=== PATIENT | male | born 1955 | race Caucasian/White ===

== ENCOUNTER 2016-11-18 04:40 | Inpatient (IN) | payer MEDICARE, OTHER ==
[2016-11-18 04:42] VITALS: BMI 22.8
--- NOTE | 2016-11-18 04:54 | ED PDOC ---
Arrival/HPI - General Chief Complaint: Medical Clearance Time Seen by Provider: 11/18/16 04:45 Historian: Patient - Critical Care Critical Care Minutes: 45 minutes - History of Present Illness Narrative History of Present Illness (Text): 11/18/16 04:48 Pipe Betancur is a 61 year old male, with a history of multiple myeloma, and ESRD on dialysis, presents to the emergency department via ambulance for altered mental states. According to , patient woke up from sleep yelling and altered. When the paramedics arrived, he was hypotensive and bradycardic with a heart rate of 24 bpm. Patient was given 1mg Atropine with minimal effect. Patient was then sedated with 70 mg of Ketamine placed on transcutaneous pacing as 3rd degree block was noted.. According to family, patient is due for dialysis later today. History and ROS limited due to patient's condition. Time/Duration: 1/2 hour Symptom Onset: Sudden Symptom Course: Unchanged Severity Level: Severe Activities at Onset: Sleeping Context: Home Past Medical History - Provider Review Nursing Documentation Reviewed: Yes - Tetanus Immunization Tetanus Immunization: Unknown - Renal Hx Renal Disorder: Yes Date of Last Dialysis Treatment: 07/24/15 Hx Renal Failure: Yes Other/Comment: NEW AV SHUNT LEFT ARM - Hematological/Oncological Hx Blood Disorders: Yes (THROMBOCYTOPENIA) Hx Blood Transfusions: Yes Hx Blood Transfusion Reaction: No Hx Cancer: Yes (MULTIPLE MYELOMA) Hx Chemotherapy: Yes Hx Shingles: Yes - Musculoskeletal/Rheumatological Hx Musculoskeletal Disorders: Yes Hx Osteoporosis: Yes - Gastrointestinal Hx Gastrointestinal Disorders: Yes Hx Gall Bladder Disease: Yes - Surgical History Hx Arteriovenous Shunt: Yes (FISTULA LEFT ARM) Hx Cholecystectomy: Yes Hx Vascular Surgery: Yes (PERMA CATH INSERTION ) Hx Vascular Access Device: Yes (LOLI CATH RIGHT CHEST) Other/Comment: 03/01/16- DRAINAGE HEMATOMA LEFT ARM - Anesthesia Hx Anesthesia: Yes Hx Anesthesia Reactions: No Hx Malignant Hyperthermia: No - Suicidal Assessment Feels Threatened In Home Enviroment: No Family/Social History - Physician Review Nursing Documentation Reviewed: Yes Family/Social History: No Known Family HX Smoking Status: Never Smoked Hx Alcohol Use: No Allergies/Home Meds Allergies/Adverse Reactions: Allergies No Known Allergies Allergy (Verified 03/01/15 10:53) Home Medications: Home Meds Medication Instructions Recorded Confirmed Sevelamer HCl [Renagel] 800 mg PO TID 07/23/15 11/18/16 B Complex W-C No.20/Folic Acid 1 tab PO DAILY 11/18/16 11/18/16 [Renal Caps Softgel] Calcium Acetate [Phoslo] 3 cap PO TID 11/18/16 11/18/16 Famotidine [Heartburn Prevention] 10 mg PO DAILY 11/18/16 11/18/16 Ferric Citrate [Auryxia] 420 mg PO TID 11/18/16 11/18/16 Review of Systems - Review of Systems Systems not reviewed;Unavailable: Other (Lethargic/unresponsive) Physical Exam Vital Signs Reviewed: Yes Vital Signs Temp Pulse Pulse Resp BP BP Pulse Ox 11/18/16 05:18 71 152/47 H 11/18/16 05:12 69 129/49 L 11/18/16 05:11 71 22 129/49 L 99 11/18/16 04:48 99.7 F H 72 24 138/28 L Temperature: Afebrile Blood Pressure: Hypotensive Respiratory Rate: Normal Appearance: Positive for: Non-Toxic Pain Distress: None Mental Status: Positive for: other (Awake, in a dissociative state (s/p ketamine ) ) - Systems Exam Head: Present: Atraumatic, Normocephalic Pupils: Present: PERRL Conjunctiva: Present: Normal Respiratory/Chest: Present: Clear to Auscultation, Good Air Exchange. No: Respiratory Distress, Accessory Muscle Use Cardiovascular: Present: Normal S1, S2, Bradycardic. No: Murmurs Upper Extremity: Present: Normal Inspection. No: Cyanosis, Edema Lower Extremity: Present: Normal Inspection. No: Edema Skin: Present: Warm, Dry, Normal Color. No: Rashes Psychiatric: Present: Other (Awake, in a dissociative state (s/p ketamine) ) Medical Decision Making ED Course and Treatment: 11/18/16 04:57 Impression: A 61 year old male who presents to the emergency department via ambulance for altered mental status, hypotensive, and bradycardia. Plan: -- Labs, cardiac enzymes -- EKG -- Chest X-ray -- Albuterol -- Calcium Gluconate -- Dextrose -- Doubtamine -- Insulin -- Sodium Polystyrene Sulfonate -- Sodium Bicarbonate -- Reassess and disposition Progress Notes: 11/18/16 05:09 Case discussed with , who is aware and accepts patient to the ICU. Accepts patient under Danika's service. Case discussed with Dr. Garnica who accepts patient under her service with , cardiology consult, Dr. Adrian, renal consult and , infectious disease consult. 11/18/16 05:28 Patient with a temperature of 99.7F and Lactate of 6.1. Code Sepsis called. 11/18/16 06:00 Pt. 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 - Lab Interpretations Lab Results: 11/18/16 04:50 11/18/16 04:50 Lab Results 11/18/16 04:50: pO2 35, VBG pH 7.08 L*, VBG pCO2 80.0 H*, VBG HCO3 23.7, VBG Total CO2 26.2, VBG O2 Sat (Calc) 45.7, VBG Base Excess -7.8 L, VBG Potassium 7.0 H*, Sodium 131.0 L, Chloride 96.0 L, Glucose 180 H, Lactate 6.1 H*, FiO2 21.0, Venous Blood Potassium 7.0 H* 11/18/16 04:50: WBC 6.8 D, RBC 3.74, Hgb 12.7 L, Hct 38.5 L, MCV 102.9, MCH 34.0, MCHC 33.0, RDW 14.2, Plt Count 152, MPV 11.0 11/18/16 04:50: Sodium 135, Chloride 94 L, Potassium 6.7 H* D, Carbon Dioxide 20 L, Anion Gap 28 H, BUN 75 H, Creatinine 10.6 H*, Est GFR ( Amer) 6, Est GFR (Non-Af Amer) 5, Random Glucose 166 H, Calcium 8.6, Phosphorus 8.3 H, Magnesium 2.6 H, Total Bilirubin 0.7, AST 19, ALT 24, Alkaline Phosphatase 47, Lactate Dehydrogenase 403, Total Creatine Kinase 54, Troponin I 0.04, Total Protein 7.2, Albumin 4.2, Globulin 3.0, Albumin/Globulin Ratio 1.4 11/18/16 04:50: PT 11.1, INR 1.03, APTT 22.8 L I have reviewed the lab results: Yes - RAD Interpretation Radiology Orders: 11/18/16 04:47 CHEST PORTABLE [RAD] Stat - EKG Interpretation EKG Interpretation (Text): EKG- Complete heart block Interpreted by ED Physician: Yes Type: 12 lead EKG - Medication Orders Current Medication Orders: Dobutamine HCl/Dextrose (Dobutamine/Dextrose 5% 500mg/250ml) 500 mg in 250 mls @ 5.1 mls/hr IV .Q24H PRN; Protocol; 2.5 MCG/KG/MIN PRN Reason: TITRATE PER PROTOCOL Last Admin: 11/18/16 05:12 Dose: 5.1 mls/hr Vancomycin HCl (Vancomycin 1gm) 1 gm in 250 mls @ 167 mls/hr IVPB STAT STA PRN Reason: Protocol Stop: 11/18/16 07:23 Last Admin: 11/18/16 06:16 Dose: 167 mls/hr Sodium Chloride (Sodium Chloride 0.9%) 450 mls @ 500 mls/hr IV .Q54M STA Stop: 11/18/16 07:21 Last Admin: 11/18/16 06:55 Dose: 500 mls/hr Discontinued Medications Albuterol Sulfate (Albuterol 0.083% Inhal Pilar (2.5 Mg/3 Ml) Ud) 15 mg IH STAT STA Stop: 11/18/16 05:24 Last Admin: 11/18/16 05:47 Dose: 15 mg Calcium Gluconate (Calcium Gluconate Iv) 1,000 mg IVP ONCE ONE Stop: 11/18/16 05:20 Last Admin: 11/18/16 05:43 Dose: 1,000 mg Dextrose (Dextrose 50% Inj) 50 ml IVP ONCE ONE Stop: 11/18/16 05:23 Last Admin: 11/18/16 05:51 Dose: 50 ml Meropenem 1g/NS 100mL IVPB (Meropenem 1g/Ns 100ml Ivpb) 1 gm in 100 mls @ 100 mls/hr IVPB STAT STA PRN Reason: Protocol Stop: 11/18/16 06:39 Insulin Human Regular (Humulin R) 10 units IVP STAT STA Stop: 11/18/16 05:23 Last Admin: 11/18/16 05:51 Dose: 10 units Sodium Bicarbonate (Sodium Bicarbonate (8.4%) 50 Meq Syringe) 50 meq IVP ONCE ONE Stop: 11/18/16 05:23 Last Admin: 11/18/16 05:42 Dose: 50 meq Sodium Polystyrene Sulfonate (Kayexalate Oral Susp) 30 gm PO ONCE ONE Stop: 11/18/16 05:23 Last Admin: 11/18/16 06:55 Dose: 30 gm Sodium Polystyrene Sulfonate (Kayexalate Oral Susp) 15 gm SC STAT STA Stop: 11/18/16 06:03 Last Admin: 11/18/16 06:45 Dose: 15 gm - Scribe Statement The provider has reviewed the documentation as recorded by the Deandra Coy Provider Attestation: All medical record entries made by the Deandra were at my direction and personally dictated by me. I have reviewed the chart and agree that the record accurately reflects my personal performance of the history, physical exam, medical decision making, and the department course for this patient. I have also personally directed, reviewed, and agree with the discharge instructions and disposition. Disposition/Present on Arrival - Present on Arrival Any Indicators Present on Arrival: No History of DVT/PE: No History of Uncontrolled Diabetes: No Urinary Catheter: No History of Decub. Ulcer: No History Surgical Site Infection Following: None - Disposition Have Diagnosis and Disposition been Completed?: Yes Diagnosis: Hyperkalemia, Complete heart block Disposition: HOSPITALIZED Disposition Time: 05:45 Patient Plan: ICU Patient Problems: Current Active Problems Problem Status Onset Complete heart block Acute Hyperkalemia Acute Condition: STABLE
[2016-11-18 05:03] LABS: VENOUS BLOOD GAS BASE EXCESS -7.8 mmol/L (0.0-2.0)
[2016-11-18 05:05] LABS: HEMATOCRIT 38.5 % (42.0-52.0); MEAN CELL VOLUME 102.9 fL (80.0-105.0); RED CELL DISTRIBUTION WIDTH 14.2 % (11.5-14.5); WHITE BLOOD COUNT 6.8 10^3/ul (4.5-11.0)
[2016-11-18] MEDS ORDERED: DOBUTamine 500mg/250ml D5W 500 MG/250 ML BAG IV PRN (05:06)
[2016-11-18 05:14] LABS: VENOUS BLOOD PH 7.08 (7.32-7.43)
[2016-11-18 05:18] LABS: ALB/GLOB RATIO 1.4 (1.1-1.8); BILIRUBIN,TOTAL 0.7 mg/dL (0.2-1.3); CALCIUM 8.6 mg/dL (8.4-10.5); TOTAL PROTEIN 7.2 g/dL (5.8-8.3)
[2016-11-18 05:19] LABS: INR 1.03 (0.93-1.08); PARTIAL THROMBOPLASTIN TIME 22.8 Seconds (23.7-30.8)
[2016-11-18] MEDS ORDERED: Dextrose 50% SYRINGE Inj (50 ml) IVP ONE (05:22)
[2016-11-18] MEDS ORDERED: Insulin Regular 1 UNITS/0.01 ML ML IVP STA (05:22)
[2016-11-18] MEDS ORDERED: Sodium Bicarbonate (8.4%) 50 Meq Syringe IVP ONE (05:22)
[2016-11-18] MEDS ORDERED: Albuterol 0.083% Inhal Sol (2.5 mg/3 mL) UD IH STA (05:23)
[2016-11-18 05:26] LABS: POTASSIUM 6.7 mmol/L (3.6-5.0); TROPONIN I 0.04 ng/mL
[2016-11-18] MEDS ORDERED: Meropenem 1g/NS 100mL IVPB 1 GM/100 ML PIGGYBACK IVPB STA (05:40)
[2016-11-18] MEDS ORDERED: Vancomycin 1gm in NS 250ml 1 GM/250 ML BAG IVPB STA (05:54)
[2016-11-18] MEDS: Sod Polystyrene Sulf 15 gm/60 ml Oral Susp PO ONE ×2 (05:57→06:55)
[2016-11-18 06:01] LABS: MAGNESIUM 2.6 mg/dL (1.7-2.2); PHOSPHOROUS 8.3 mg/dL (2.5-4.5)
[2016-11-18] MEDS ORDERED: Sod Polystyrene Sulf 15 gm/60 ml Oral Susp PR STA (06:02)
--- NOTE | 2016-11-18 06:18 | CP.PCM.CON ---
<DozierBrenton - Last Filed: 11/18/16 07:27> History of Present Illness - History of Present Illness History of Present Illness: Resident ICU Consult Note for Dr. Galvan 61 year old male with past medial history of multiple myeloma and ESRD ( dialysis , Thu, ) was brought to [facility] ED via EMS for sudden altered mental status. History per patient's son, patient suddenly woke up from sleep at 4am in the morning shouting, confused, and lose consciousness intermittently. Patient was found to be hypotensive and bradycardiac at 24bpm, atropine was given en route to [facility]. Patient was also found to have 3rd degree heart block. Ketamine and transcutaneous pacing were started. Patient's last dialysis was 2 days ago on Thursday. Patient was diagnosed with myeloma 8 years ago, sees Dr. Geovany Duarte as outpatient. Unable to obtain further history and ROS due to patient' s mental status. PMD: Dr. Garnica, Nephro: D Adrian PMHx: multiple myeloma, ESRD PSHx: AVF left arm Allergy: NKDA Social Hx: denies tobacco, alcohol or other drug use Family Hx: non contributory Home meds: famotidine, B complex/folic acid, renagel, phoslo, ferric citrate Review of Systems - Review of Systems Systems not reviewed;Unavailable: Altered Mental Status Review of Systems: sedated - Constitutional Constitutional: As Per HPI - EENT Eyes: As Per HPI Ears: As Per HPI Nose/Mouth/Throat: As Per HPI - Cardiovascular Cardiovascular: As Per HPI - Respiratory Respiratory: As Per HPI - Gastrointestinal Gastrointestinal: As Per HPI - Genitourinary Genitourinary: As Per HPI - Musculoskeletal Musculoskeletal: As Per HPI - Integumentary Integumentary: As Per HPI - Neurological Neurological: As Per HPI - Psychiatric Psychiatric: As Per HPI - Endocrine Endocrine: As Per HPI - Hematologic/Lymphatic Hematologic: As Per HPI Past Patient History - Tetanus Immunizations Tetanus Immunization: Unknown - Past Medical History & Family History Past Medical History?: Yes - Past Social History Smoking Status: Never Smoked - RENAL Hx Chronic Kidney Disease: Yes Date of Last Dialysis Treatment: 07/24/15 Hx Renal Failure: Yes Other/Comment: NEW AV SHUNT LEFT ARM - HEMATOLOGICAL/ONCOLOGICAL Hx Blood Disorders: Yes (THROMBOCYTOPENIA) Hx Blood Transfusions: Yes Hx Blood Transfusion Reaction: No Hx Cancer: Yes (MULTIPLE MYELOMA) Hx Chemotherapy: Yes Hx Shingles: Yes - MUSCULOSKELETAL/RHEUMATOLOGICAL Hx Musculoskeletal Disorders: Yes Hx Osteoporosis: Yes - GASTROINTESTINAL Hx Gastrointestinal Disorders: Yes Hx Gall Bladder Disease: Yes - SURGICAL HISTORY Hx Arteriovenous Shunt: Yes (FISTULA LEFT ARM) Hx Cholecystectomy: Yes Hx Vascular Surgery: Yes (PERMA CATH INSERTION ) Hx Vascular Access Device: Yes (LOLI CATH RIGHT CHEST) Other/Comment: 03/01/16- DRAINAGE HEMATOMA LEFT ARM - ANESTHESIA Hx Anesthesia: Yes Hx Anesthesia Reactions: No Hx Malignant Hyperthermia: No Meds Allergies/Adverse Reactions: Allergies Allergy/AdvReac Type Severity Reaction Status Date / Time No Known Allergies Allergy Verified 03/01/15 10:53 - Medications Medications: Current Medications Dobutamine HCl/Dextrose (Dobutamine/Dextrose 5% 500mg/250ml) 500 mg in 250 mls @ 5.1 mls/hr IV .Q24H PRN; Protocol; 2.5 MCG/KG/MIN PRN Reason: TITRATE PER PROTOCOL Last Admin: 11/18/16 05:12 Dose: 5.1 mls/hr Meropenem 1g/NS 100mL IVPB (Meropenem 1g/Ns 100ml Ivpb) 1 gm in 100 mls @ 100 mls/hr IVPB STAT STA PRN Reason: Protocol Stop: 11/18/16 06:39 Vancomycin HCl (Vancomycin 1gm) 1 gm in 250 mls @ 167 mls/hr IVPB STAT STA PRN Reason: Protocol Stop: 11/18/16 07:23 Physical Exam - Constitutional Appears: Toxic - Head Exam Head Exam: ATRAUMATIC, NORMOCEPHALIC - Eye Exam Eye Exam: EOMI, Normal appearance, PERRL - ENT Exam ENT Exam: Mucous Membranes Moist - Neck Exam Neck exam: Positive for: Normal Inspection - Respiratory Exam Respiratory Exam: Clear to Auscultation Bilateral, NORMAL BREATHING PATTERN. absent: Rhonchi, Wheezes, Respiratory Distress - Cardiovascular Exam Cardiovascular Exam: Bradycardia, +S1, +S2. absent: Diastolic murmur, Systolic Murmur Additional comments: loli cath at right chest - GI/Abdominal Exam GI & Abdominal Exam: Normal Bowel Sounds, Soft. absent: Rigid, Tenderness - Extremities Exam Extremities exam: Positive for: normal capillary refill, pedal pulses present. Negative for: joint swelling, pedal edema Additional comments: Righ arm vistula with good thrill - Neurological Exam Additional comments: sedated - Psychiatric Exam Additional comments: sedated - Skin Skin Exam: Dry, Intact, Normal Color, Warm Results - Vital Signs Recent Vital Signs: Last Vital Signs Temp 99.7 F H 11/18/16 04:48 Pulse 71 11/18/16 05:18 Resp 22 11/18/16 05:11 BP 152/47 H 11/18/16 05:18 Pulse Ox 99 11/18/16 05:11 - Labs Result Diagrams: 11/18/16 04:50 11/18/16 04:50 Labs: Laboratory Results - last 24 hr 11/18/16 11/18/16 11/18/16 04:50 04:50 04:50 WBC 6.8 D RBC 3.74 Hgb 12.7 L Hct 38.5 L MCV 102.9 MCH 34.0 MCHC 33.0 RDW 14.2 Plt Count 152 MPV 11.0 PT 11.1 INR 1.03 APTT 22.8 L pO2 VBG pH VBG pCO2 VBG HCO3 VBG Total CO2 VBG O2 Sat (Calc) VBG Base Excess VBG Potassium Sodium 135 Chloride 94 L Glucose Lactate FiO2 Potassium 6.7 H* D Carbon Dioxide 20 L Anion Gap 28 H BUN 75 H Creatinine 10.6 H* Est GFR ( Amer) 6 Est GFR (Non-Af Amer) 5 Random Glucose 166 H Calcium 8.6 Phosphorus 8.3 H Magnesium 2.6 H Total Bilirubin 0.7 AST 19 ALT 24 Alkaline Phosphatase 47 Lactate Dehydrogenase 403 Total Creatine Kinase 54 Troponin I 0.04 Total Protein 7.2 Albumin 4.2 Globulin 3.0 Albumin/Globulin Ratio 1.4 Venous Blood Potassium 11/18/16 04:50 WBC RBC Hgb Hct MCV MCH MCHC RDW Plt Count MPV PT INR APTT pO2 35 VBG pH 7.08 L* VBG pCO2 80.0 H* VBG HCO3 23.7 VBG Total CO2 26.2 VBG O2 Sat (Calc) 45.7 VBG Base Excess -7.8 L VBG Potassium 7.0 H* Sodium 131.0 L Chloride 96.0 L Glucose 180 H Lactate 6.1 H* FiO2 21.0 Potassium Carbon Dioxide Anion Gap BUN Creatinine Est GFR ( Amer) Est GFR (Non-Af Amer) Random Glucose Calcium Phosphorus Magnesium Total Bilirubin AST ALT Alkaline Phosphatase Lactate Dehydrogenase Total Creatine Kinase Troponin I Total Protein Albumin Globulin Albumin/Globulin Ratio Venous Blood Potassium 7.0 H* Assessment & Plan - Assessment and Plan (Free Text) Assessment: 61 year old male with past medical history of MM and ESRD presents to ED via EMS for altered mental status, hypotensive, and bradycardia. Plan: Neruo -Under ketamine sedation -Unresponsive to verbal stimuli, withdraws to pain -Neuro check q1 Cardiovascular -Hypotensive and bradycardic -Complete heart block -Continue with transcutaneous pacing and Dobutamine -Calcium gluconate given for hyperkalemia -Troponin 0.04, repeats pending -BNP 9280 -Serial EKG -Follow up TSH, echocardiogram -Cardiology consult, Dr. Correia help appreciated Pulmonary -HOB at 30 degree -Non rebreather oxygen -CXR showed diffused pulmonary edema -VBG pH 7.08, CO2 80, lactate 6.1 GI -NPO Renal -BUN/Cr 75/10.6 -Scheduled for dialysis today -Dr. Adrian consulted -Potassium 6.7 upon arrival -Two doses of Kayexalate given (30gm, 15mg) -Calcium gluconate, insulin, albuterol and bicarbonate given -Continue to monitor ID -No leukocytosis, febrile at 99.7 -Follow up blood and urine culture -Follow up procalcitonin -UA showed small LE, protein -Vancomycin and meropenem given -ID consult, Dr. Alcantara help appreciated Endo -Targe euglycemia -Follow up TSH Heme -No acute issues -History of Multiple Myeloma -Continue to monitor -SCD for DVT ppx Psych -Unable to assess <Mandy STEWARD,Larry - Last Filed: 11/18/16 07:50> Meds - Medications Medications: Current Medications Dobutamine HCl/Dextrose (Dobutamine/Dextrose 5% 500mg/250ml) 500 mg in 250 mls @ 5.1 mls/hr IV .Q24H PRN; Protocol; 2.5 MCG/KG/MIN PRN Reason: TITRATE PER PROTOCOL Last Admin: 11/18/16 05:12 Dose: 5.1 mls/hr Results - Vital Signs Recent Vital Signs: Last Vital Signs Temp 99.7 F H 11/18/16 04:48 Pulse 71 11/18/16 05:18 Resp 22 05/23/17 05:11 BP 152/47 H 05/23/17 05:18 Pulse Ox 99 11/18/16 05:11 - Labs Result Diagrams: 11/18/16 04:50 11/18/16 04:50 Labs: Laboratory Results - last 24 hr 11/18/16 06:15 Urine Color Light red Urine Appearance Sl cloudy Urine pH 8.0 Ur Specific [place] 1.015 Urine Protein 100 H Urine Glucose (UA) 100 H Urine Ketones Negative Urine Blood Large H Urine Nitrate Negative Urine Bilirubin Negative Urine Urobilinogen 0.2 Ur Leukocyte Esterase Small H Urine RBC 25 - 30 Urine WBC 2 - 5 Ur Epithelial Cells 0 - 2 Attending/Attestation - Attestation I have personally seen and examined this patient.: Yes I have fully participated in the care of the patient.: Yes I have reviewed all pertinent clinical information: Yes Notes (Text): 11/18/16 07:30 -I agree with the above consult H&P completed by the resident physician with the following additions and/or changes: Briefly, the patient is a 61 year old man with a history of multiple myeloma and ESRD-(), who is being admitted to the ICU with hemodynamically unstable, 3rd degree heart block, which was initially diagnosed by EMS in the field, where they placed a trans-cutaneous pacer at that time.The cause of the heart block could be the result of hyperkalemia, since the patient was found to have a serum potassium of 6.7 on initial ED labs. The patient was also noted to have acute pulmonary edema on x-ray. Because the patient was altered at initial presentation, details of the history were obtained from his brother who was at bedside. According to the brother, the patient is compliant with his outpatient dialysis (last HD on 11/15/16) and he hasn't had any recent infections or chest pain. In the ED, he was given Albuterol, calcium-gluconate, sodium bicarb, IV Insulin and Kayexelate for the hyperkalemia. Nephrology (Dr. Adrian) has been consulted and the patient will undergo urgent dialyses this morning. We will also check a 2D-echo and serial trop's and EKG's to rule out acute ischemia as a potential underlying etiology. Cardiology and I.D. services have also been consulted and empiric IV antibiotics have been started. Lastly, because the patient was initially hypotensive, Dobutamine drip was started in the ED.
[2016-11-18 06:27] LABS: URINE BILIRUBIN NEGATIVE (NEGATIVE); URINE BLOOD LARGE (NEGATIVE); URINE GLUCOSE (UA) 100 mg/dL (NEGATIVE); URINE KETONE NEGATIVE (NEGATIVE); URINE LEUKOCYTE ESTERASE SMALL Leu/uL (NEGATIVE); URINE PROTEIN 100 mg/dL (<30 mg/dL); URINE UROBILINOGEN 0.2 E.U./dL (<1 E.U./dL)
[2016-11-18] MEDS ORDERED: Sodium Chloride 0.9% 450 ML IV STA (06:28)
[2016-11-18 06:35] LABS: URINE APPEARANCE SL CLOUDY (CLEAR); URINE COLOR LIGHT RED (YELLOW)
[2016-11-18 06:39] LABS: URINE EPITHELIAL CELLS 0 - 2 /hpf (0-5); URINE RBC 25 - 30 /hpf (0-2)
[2016-11-18] MEDS ORDERED: DOPamine 400mg/250ml D5W 400 MG/250 ML BAG IV PRN ×3 (08:03→14:51)
[2016-11-18] MEDS ORDERED: DOPamine 400mg/250ml D5W 400 MG/250 ML BAG IV ONE (08:04)
--- NOTE | 2016-11-18 08:27 | RAD ---
HISTORY: bradycardic COMPARISON: 01/06/2014 FINDINGS: LUNGS: Minimal perihilar infiltrates are seen right greater than left. Finding this may be due to pneumonia versus mild CHF. PLEURA: No significant pleural effusion identified, no pneumothorax apparent. CARDIOVASCULAR: Normal. OSSEOUS STRUCTURES: No significant abnormalities. VISUALIZED UPPER ABDOMEN: Normal. OTHER FINDINGS: None. IMPRESSION: Minimal perihilar infiltrates are seen right greater than left. Finding this may be due to pneumonia versus mild CHF.
--- NOTE | 2016-11-18 08:54 | CON ---
DATE: 11/18/2016 This is a 61-year-old lady had gentleman with a history of multiple myeloma and on dialysis who was brought to [facility] ED for sudden onset of altered mental status. The patient initially woke up agitated and confused, shouting. Upon further evaluation by arrived EMS, he was found to be hypotensive and bradycardic. Atropine was given and transcutaneous pacer was applied. EKG showed third degree heart block. No nausea, no vomiting, no diarrhea, no constipation. PAST MEDICAL HISTORY: Multiple myeloma, end-stage renal disease. SOCIAL HISTORY: No alcohol or illicit drug abuse. No tobacco smoking. FAMILY HISTORY: Noncontributory. PAST SURGICAL HISTORY: AV fistula, left arm. REVIEW OF SYSTEMS: Review of 12-organ system, other than mentioned in history of present illness, is negative. ALLERGIES: NKDA. MEDICATIONS: Famotidine, Renagel, PhosLo, Auryxia. CURRENT MEDICATIONS: Meropenem, insulin with D50, bicarbonates, Zosyn, vancomycin. PHYSICAL EXAMINATION: VITAL SIGNS: Heart rate 94, blood pressure 87/33. HEAD AND NECK: Atraumatic. LUNGS: Clear to auscultation bilaterally. HEART: Regular rate and rhythm. S1, S2 normal. ABDOMEN: Soft, nontender, nondistended. MUSCULOSKELETAL: No C/C/E. NEUROLOGIC: The patient moves all extremities spontaneously. SKIN: Moist. PSYCHIATRIC: The patient is alert and oriented x 3. LABORATORY DATA: Sodium 135, potassium 6.7, chloride 94, carbon dioxide 20, BUN 75, creatinine 10.6, glucose 166, calcium 8.6, AST 19, ALT 24. ProBNP 9280. TSH 0.5. VBG showed pH 7.08, potassium 7, lactate 6.1. EKG showed marked sinus arrhythmia with AV dissociation and some escaping complexes. ASSESSMENT AND PLAN: This is a 61-year-old gentleman with multiple myeloma, on dialysis for end-stage renal disease, who presented with symptomatic bradycardia with cardiogenic shock in the setting of AV dissociation and severe hyperkaliemia. He is currently on dopamine. He will undergo dialysis to correct his acidosis and potassium. If atrioventricular dissociation and relative hypotension continues-- IV pacemaker will be placed. Meanwhile, will continue to target euvolemia, euglycemia, normothermia and oxygen saturation more than 90%. Dialysis will correct electrolytes and acid base abnormality. A transcutaneous pacer will be placed. Cardiology and nephrology consultation appreciated. Vasopressor support with dopamine will be continued. The patient will remain n.p.o. Will maintain blood glucose between 140-180 range. Will continue with DVT and GI prophylaxis. Addendum: HD completed, K 4.5, HR 120--sinus, BP 113/57-->stopped dopamine, HR improved to 100. Cardiology service notified. ccm time 40 min Brian Oneill MD cc: [id number] TT: 11/18/2016 08:53:34 Confirmation # [id number] Dictation # [id number] mn SHAUNAD
[2016-11-18] MEDS ORDERED: Vancomycin 500mg in NS 500 MG/100 ML BAG IVPB SCH (10:00)
[2016-11-18 11:37] LABS: TROPONIN I 0.08 ng/mL
[2016-11-18] MEDS ORDERED: Piperacillin/Tazobact 2.25gm 2.25 GM/100 ML BAG IVPB SCH (12:00)
--- NOTE | 2016-11-18 12:39 | CARD ---
APPROVED REPORT EKG Measurement Heart [id number] <Conclusion> Sinus rhythm with marked sinus arrhythmia with short MS with occasional and consecutive premature ventricular complexes and f Indeterminate axis Pulmonary disease pattern Nonspecific T wave abnormality Abnormal ECG
--- NOTE | 2016-11-18 12:41 | CARD ---
APPROVED REPORT EKG Measurement Heart [id number] <Conclusion> Sinus rhythm with complete heart block and Idioventricular rhythm Left axis deviation Low voltage QRS Right bundle branch block Inferior infarct, age undetermined Cannot rule out Anterior infarct, age undetermined Abnormal ECG
[2016-11-18 12:45] LABS: CALCIUM 9.2 mg/dL (8.4-10.5); POTASSIUM 4.5 mmol/L (3.6-5.0)
[2016-11-18] MEDS: Cefepime 1gm in NS 100ml 1 GM/100 ML BAG IVPB SCH (12:53)
--- NOTE | 2016-11-18 14:06 | CP.PCM.CON ---
History of Present Illness - History of Present Illness History of Present Illness: 61 year old male with PMH of multiple myeloma, ESRD on HD was brought in to [facility] because of apparent agitation and behavioral changes. There was no note of fever, no convulsions, no vomiting, no diarrhea. but there was apparent brief loss of consciousness. In the ED, he was noted to be hypotensive and bradycardic. He was noted to have 3rd degree AV block. There was questionable feverin the ED as well. Infectious Diseases consult is requeste to further evaluate and manage. Review of Systems - Review of Systems Systems not reviewed;Unavailable: Altered Mental Status Past Patient History - Tetanus Immunizations Tetanus Immunization: Unknown - Past Medical History & Family History Past Medical History?: Yes - Past Social History Smoking Status: Never Smoked - RENAL Hx Chronic Kidney Disease: Yes Date of Last Dialysis Treatment: 07/24/15 Hx Renal Failure: Yes Other/Comment: NEW AV SHUNT LEFT ARM - HEMATOLOGICAL/ONCOLOGICAL Hx Blood Disorders: Yes (THROMBOCYTOPENIA) Hx Blood Transfusions: Yes Hx Blood Transfusion Reaction: No Hx Cancer: Yes (MULTIPLE MYELOMA) Hx Chemotherapy: Yes Hx Shingles: Yes - MUSCULOSKELETAL/RHEUMATOLOGICAL Hx Musculoskeletal Disorders: Yes Hx Osteoporosis: Yes - GASTROINTESTINAL Hx Gastrointestinal Disorders: Yes Hx Gall Bladder Disease: Yes - SURGICAL HISTORY Hx Arteriovenous Shunt: Yes (FISTULA LEFT ARM) Hx Cholecystectomy: Yes Hx Vascular Surgery: Yes (PERMA CATH INSERTION ) Hx Vascular Access Device: Yes (LOLI CATH RIGHT CHEST) Other/Comment: 03/01/16- DRAINAGE HEMATOMA LEFT ARM - ANESTHESIA Hx Anesthesia: Yes Hx Anesthesia Reactions: No Hx Malignant Hyperthermia: No Meds Allergies/Adverse Reactions: Allergies Allergy/AdvReac Type Severity Reaction Status Date / Time No Known Allergies Allergy Verified 03/01/15 10:53 - Medications Medications: Current Medications Vancomycin HCl (Vancomycin 500mg In Ns) 500 mg in 100 mls @ 200 mls/hr IVPB Q12 NELIA PRN Reason: Protocol Piperacillin Sod/Tazobactam Sod (Zosyn 2.25 Gm In 0.9% 100 Ml) 2.25 gm in 100 mls @ 100 mls/hr IVPB Q6 NELIA PRN Reason: Protocol Stop: 11/18/16 18:59 Dopamine HCl/Dextrose (Dopamine 400mg/250ml D5w) 400 mg in 250 mls @ 12.75 mls/ hr IV .[id number] PRN; Protocol; 5 MCG/KG/MIN PRN Reason: TITRATE PER MD ORDER Last Admin: 11/18/16 08:13 Dose: 5 mcg/kg/min, 12.75 mls/hr Physical Exam - Constitutional Appears: Non-toxic - Head Exam Head Exam: NORMAL INSPECTION - Cardiovascular Exam Cardiovascular Exam: +S1, +S2 - GI/Abdominal Exam GI & Abdominal Exam: Soft. absent: Tenderness Results - Vital Signs Recent Vital Signs: Last Vital Signs Temp 99.7 F H 11/18/16 04:48 Pulse 110 H 11/18/16 09:11 Resp 22 11/18/16 08:13 BP 152/47 H 11/18/16 05:18 Pulse Ox 100 11/18/16 08:13 - Labs Result Diagrams: 11/18/16 04:50 11/18/16 11:00 Labs: Laboratory Results - last 24 hr 11/18/16 06:15 Urine Color Light red Urine Appearance Sl cloudy Urine pH 8.0 Ur Specific [place] 1.015 Urine Protein 100 H Urine Glucose (UA) 100 H Urine Ketones Negative Urine Blood Large H Urine Nitrate Negative Urine Bilirubin Negative Urine Urobilinogen 0.2 Ur Leukocyte Esterase Small H Urine RBC 25 - 30 Urine WBC 2 - 5 Ur Epithelial Cells 0 - 2 Assessment & Plan - Assessment and Plan (Free Text) Plan: Assessment Perihilar edema probably CHF rule out pneumonia symptomatic bradycardia with 3rd degree AV block S/P temporary transcutaneous pacemaker placement ESRD on HD multiple myeloma Plan Gave a dose of IV Vancoy and started cefepime pending blood cx, PCT, sputum cx will monitor clinically
--- NOTE | 2016-11-18 14:33 | CP.PCM.CON ---
History of Present Illness - History of Present Illness History of Present Illness: Initial Nephrology Consultation: Assessment: End stage renal disease on hemodialysis (TTS) via AVF with severe hyperkalemia with complete heart block combined respiratory and metabolic acidosis with lactic acidosis Anemia, Hyperphosphatemia, Secondary hyperparathyroidism hx of multiple myeloma Plan: pt getting HD today as ordered in ICU. Will plan for dialysis extra session tomorrow. Continue with Nephrovite 1 tab/day. PRBC as needed for anemia. On CLAUDIA as Aranesp 25 mcg weekly, TSAT 22% Ferritin 821 last Hb 12.7 hence hold aransep Continue with phos binders home med, check phos level Continue with Hectorol 5 mcg with dialysis. Last PTH level 893 BP tend to be low at end of HD. Patient not on RAAS pilar as low Bp and hyperkalemia Dialysis consistent diet Further work up/management as per primary team. d/w ICU. cardiology, ID involved Dose meds/antibiotics (if needed) for ESRD status. Avoid fleets enema/magnesium based laxatives. Thanks for allowing me to participate in care of your patient. Will follow patient with you. Please call if any Qs Dr Jackson Frye Office: [phone] Chief Complaint; I was screaming HPI: Pt is a 61 y/o M with hx of ESRD on hemodialysis (TTS) via AVF, last dialysis , chronic anemia, hyperphosphatemia, secondary hyperparathyroidism, hx of multiple myeloma, tendency to have hyperkalemia and low BP towards end of dialysis, went to [employer] this weekend, pt says he ate a lot was brought to ER as he was confused and screaming when woke up, EMS found him bradycardic and brought to ER. he had hyperkalemic with complete heart block. admitted to ICU Denies chest pain, palpitation, shortness of breath, leg swelling. he says now I feel fine ROS: Constitutional Symptoms: Denies fever. No chills. gained 7-8 Kgs over weekend Eyes: denies change in vision, denies watery eyes, denies double vision Ears/Nose/Mouth/Throat: Denies Abnormal Taste. No Bad breath or Bad Taste. Cardiovascular: No chest pain. There is no shortness of breath. No palpitations. Pulmonary: No shortness of breath or cough. Gastrointestinal: denies abdominal pain No nausea. No vomiting. Denies change in bowel habits. Denies Bleeding Genitourinary: not much urine. No associated pain or blood. Neurological: Denies headaches. No dizziness. Denies loss of balance. Denies weakness, denies tingling/numbness Dermatological: No Rash or Bruising or ulcers. Psychiatric: Denies Anxiety. No depression. . Rheumatological: No joint pain. Denies Joint swelling Endocrine: Denies over tiredness. Denies Fatigue and denies Heat/Cold Intolerance. Physical Examination: General Appearance: Comfortable, in no acute respiratory distress, co-operative . ill appearing on O2 via face mask Vitals reviewed and noted as below. HR 100-120 and BP 80-100/50-60 when seen in ICU this AM. on dopamine drip and transcut pacing Head; Atraumatic, normocephalic ENT: no ulcers no thrush. Tongue is midline. Oropharynx: no rash or ulcers. EYES: Pupils are equal, round and reactive to light accommodation. Eye muscles and extraocular movement intact. Sclera is anicteric. Neck; supple no lymphadenopathy, no thyromegaly or bruit Lungs: Normal respiratory rate/effort. Breath sounds bilateral equal and clear Heart: Normal rate. s1s2 normal. No rub or gallop. Extremities: no edema. No varicose veins Neurological: Patient is alert, awake and oriented to person, place and time now. No focal deficit. Strength bilateral appropriate and equal Skin: Warm and dry. Normal turgor. No rash. Palpitation: Normal elasticity for age Abdomen: Abdomen is soft. Bowel sounds +. There is no abdominal tenderness, no guarding/rigidity or organomegaly Psych: ? insight and has normal affect/mood MSK: no joint tenderness or swelling. Digits and nails normal, no deformity : kidney or bladder not palpable Access: AVF with thrill and bruit Labs/imaging reviewed. Past medical history, past surgical history, family history, social history, allergy reviewed and noted as below Past Patient History - Tetanus Immunizations Tetanus Immunization: Unknown - Past Medical History & Family History Past Medical History?: Yes - Past Social History Smoking Status: Never Smoked - RENAL Hx Chronic Kidney Disease: Yes Date of Last Dialysis Treatment: 07/24/15 Hx Renal Failure: Yes Other/Comment: NEW AV SHUNT LEFT ARM - HEMATOLOGICAL/ONCOLOGICAL Hx Blood Disorders: Yes (THROMBOCYTOPENIA) Hx Blood Transfusions: Yes Hx Blood Transfusion Reaction: No Hx Cancer: Yes (MULTIPLE MYELOMA) Hx Chemotherapy: Yes Hx Shingles: Yes - MUSCULOSKELETAL/RHEUMATOLOGICAL Hx Musculoskeletal Disorders: Yes Hx Osteoporosis: Yes - GASTROINTESTINAL Hx Gastrointestinal Disorders: Yes Hx Gall Bladder Disease: Yes - SURGICAL HISTORY Hx Arteriovenous Shunt: Yes (FISTULA LEFT ARM) Hx Cholecystectomy: Yes Hx Vascular Surgery: Yes (PERMA CATH INSERTION ) Hx Vascular Access Device: Yes (LOLI CATH RIGHT CHEST) Other/Comment: 03/01/16- DRAINAGE HEMATOMA LEFT ARM - ANESTHESIA Hx Anesthesia: Yes Hx Anesthesia Reactions: No Hx Malignant Hyperthermia: No Meds Allergies/Adverse Reactions: Allergies Allergy/AdvReac Type Severity Reaction Status Date / Time No Known Allergies Allergy Verified 03/01/15 10:53 - Medications Medications: Current Medications Dopamine HCl/Dextrose (Dopamine 400mg/250ml D5w) 400 mg in 250 mls @ 12.75 mls/ hr IV .[id number] PRN; Protocol; 5 MCG/KG/MIN PRN Reason: TITRATE PER MD ORDER Last Admin: 11/18/16 08:13 Dose: 5 mcg/kg/min, 12.75 mls/hr Cefepime HCl (Maxipime 1gm) 1 gm in 100 mls @ 100 mls/hr IVPB Q24H NELIA PRN Reason: Protocol Last Admin: 11/18/16 12:53 Dose: 100 mls/hr Results - Vital Signs Recent Vital Signs: Last Vital Signs Temp 98.2 F 11/18/16 13:24 Pulse 108 H 11/18/16 13:20 Resp 22 11/18/16 13:20 BP 113/72 11/18/16 12:00 Pulse Ox 100 11/18/16 13:24 - Labs Result Diagrams: 11/18/16 04:50 11/18/16 11:00 Labs: Laboratory Results - last 24 hr 11/18/16 11/18/16 11/18/16 06:15 06:15 11:00 Sodium Potassium Chloride Carbon Dioxide Anion Gap BUN Creatinine Est GFR ( Amer) Est GFR (Non-Af Amer) Random Glucose Calcium Lactate Dehydrogenase 575 Total Creatine Kinase 67 Troponin I 0.08 D Procalcitonin 0.83 H Urine Color Light red Urine Appearance Sl cloudy Urine pH 8.0 Ur Specific [place] 1.015 Urine Protein 100 H Urine Glucose (UA) 100 H Urine Ketones Negative Urine Blood Large H Urine Nitrate Negative Urine Bilirubin Negative Urine Urobilinogen 0.2 Ur Leukocyte Esterase Small H Urine RBC 25 - 30 Urine WBC 2 - 5 Ur Epithelial Cells 0 - 2 11/18/16 11:00 Sodium 139 Potassium 4.5 Chloride 99 Carbon Dioxide 28 Anion Gap 17 BUN 33 H Creatinine 5.0 H Est GFR ( Amer) 14 Est GFR (Non-Af Amer) 12 Random Glucose 127 H Calcium 9.2 Lactate Dehydrogenase Total Creatine Kinase Troponin I Procalcitonin Urine Color Urine Appearance Urine pH Ur Specific [place] Urine Protein Urine Glucose (UA) Urine Ketones Urine Blood Urine Nitrate Urine Bilirubin Urine Urobilinogen Ur Leukocyte Esterase Urine RBC Urine WBC Ur Epithelial Cells
--- NOTE | 2016-11-18 14:41 | CON ---
DATE: 11/18/2016 REASON FOR CONSULTATION: Complete heart block on transcutaneous pacemaker, potassium 6.7. BRIEF CLINICAL HISTORY: This is a 61-year-old gentleman, history of multiple myeloma, on dialysis 11 years - Thursday, and Thursday - who had dialysis on last Thursday. Yesterday woke up very uncomfortable, feeling not sure what has happened and was behaving very abnormal, so patient's family brought here. According to family, he started screaming, agitated, confused and shouting. When EMS went there, patient was found to be hypotensive, bradycardiac. Atropine was given and transcutaneou s pacemaker was applied, and patient was found to be third degree heart block and patient was transfe rred to [facility]. The patient is still on transvenous pacemaker, awake and alert, but very restless. Denies any chest pain, denies any shortness of breath, denies any palpitation. He do es not know why he is restless on interrogation. Potassium 6.7. PAST MEDICAL HISTORY: Significant for multiple myeloma; end-stage renal disease, on dialysis, 11 yea rs. SOCIAL HISTORY: Denies any history of alcohol abuse. Denies any history of tobacco abuse. FAMILY HISTORY: Noncontributory. PAST SURGICAL HISTORY: Significant for AV fistula in the left arm. 14-POINT REVIEW OF SYSTEMS: As per HPI. ALLERGIES: No known drug allergy. CURRENT MEDICATIONS: The patient is taking famotidine, Renagel, PhosLo, Auryxia (ferric citrate) and B complex. REVIEW OF SYSTEMS: As per HPI. PHYSICAL EXAMINATION: VITAL SIGNS: Heart rate 38, blood pressure 129/49. HEENT: PERRLA. Extraocular muscles intact. NECK: Supple. No carotid bruits or thyromegaly. CHEST: Clear to auscultation. HEART: S1, S2 regular. ABDOMEN: Soft. EXTREMITIES: Clubbing and cyanosis negative. EKG today shows complete heart block with ventricular escape rate at 30. BLOOD WORKUP: ____ 6.8, hemoglobin 12.7, hematocrit 38.5, platelet count 152. Chemistry shows magdyu m ____, potassium 6.7, chloride 94, carbon dioxide 20, anion gap of 28, BUN 75, creatinine 10.6. TSH 0.5. BNP 9280. IMPRESSION: Complete heart block with underlying rhythm is a ventricular escape heart rate in 30s, h emodynamically stable, hyperkalemia; end-stage renal disease, on dialysis; history of multiple myelom a that leads to end-stage renal disease. RECOMMENDATION: Discontinue Dobutrex. Start dopamine 5 mcg and monitor the heart rate. We will get the dialysis. After dialysis and potassium is low, will see the patient. If remains still complete heart block, will put the pacemaker tomorrow. Giving the benefit of doubt, will recover after the h yperkalemia is resolved. Discussed with the patient. Will try to discuss with the patient's family; awaiting for their response. Thank you, Dr. Garnica, for providing the opportunity in taking care of the patient. Will follow with you. Then will do lipid profile, TSH, hemoglobin A1c. Will get echo to assess LV function as well. Janusz Correia MD cc:Staci Garnica MD 305 TT: 11/18/2016 11:24:14 Confirmation # [id number] Dictation # [id number] nh 11/18/2016 13:40:57
[2016-11-18 17:14] LABS: VENOUS BLOOD GAS BASE EXCESS 5.1 mmol/L (0.0-2.0); VENOUS BLOOD PH 7.38 (7.32-7.43)
[2016-11-18 17:20] LABS: CALCIUM 8.4 mg/dL (8.4-10.5); POTASSIUM 4.8 mmol/L (3.6-5.0)
[2016-11-18 17:35] LABS: TROPONIN I 0.53 ng/mL
--- NOTE | 2016-11-18 21:32 | CARD ---
APPROVED REPORT EKG Measurement Heart [id number] <Conclusion> Normal sinus rhythm Possible Left atrial enlargement Left axis deviation Incomplete right bundle branch block Inferior infarct, age undetermined Abnormal ECG
[2016-11-19 00:08] LABS: CALCIUM 7.9 mg/dL (8.4-10.5); POTASSIUM 4.9 mmol/L (3.6-5.0)
[2016-11-19 00:27] LABS: TROPONIN I 0.7 ng/mL
[2016-11-19 05:09] LABS: ADD MANUAL DIFF? NO
[2016-11-19 05:29] LABS: BASO # 0.01 K/mm3 (0.0-2.0); BASO % 0.3 % (0.0-3.0); EOS % 1.1 % (1.5-5.0); GRAN # 2.74 (1.4-6.5); GRAN % 76.1 % (50.0-68.0); HEMATOCRIT 32.2 % (42.0-52.0); LYMPH # 0.5 (1.2-3.4); LYMPH % 14.4 % (22.0-35.0); MEAN CELL VOLUME 101.6 fL (80.0-105.0); MEAN CORPUSCULAR HEMOGLOBIN 33.4 pg (25.0-35.0); MEAN CORPUSCULAR HGB CONC 32.9 g/dl (31.0-37.0); MONO # 0.3 (0.1-0.6); MONO % 8.1 % (1.0-6.0); PLATELET COUNT 119 10^3/uL (120.0-450.0); RED CELL DISTRIBUTION WIDTH 14.5 % (11.5-14.5); WHITE BLOOD COUNT 3.6 10^3/ul (4.5-11.0)
[2016-11-19 05:41] LABS: ALB/GLOB RATIO 1.2 (1.1-1.8); BILIRUBIN,TOTAL 0.8 mg/dL (0.2-1.3); CALCIUM 8.1 mg/dL (8.4-10.5); PHOSPHOROUS 6.2 mg/dL (2.5-4.5); POTASSIUM 5.1 mmol/L (3.6-5.0); TOTAL PROTEIN 6.7 g/dL (5.8-8.3)
[2016-11-19 05:57] LABS: TROPONIN I 0.71 ng/mL
--- NOTE | 2016-11-19 06:25 | CARD ---
APPROVED REPORT EXAM: Two-dimensional and M-mode echocardiogram with Doppler and color Doppler. INDICATION COMPLETE HEART BLOCK 2D DIMENSIONS Left Atrium (2D)4.6 (1.6-4.0cm)IVSd0.9 (0.7-1.1cm) LVDd4.5 (3.9-5.9cm)PWd1.0 (0.7-1.1cm) LVDs3.2 (2.5-4.0cm)FS (%) 29.1 % LVEF (%)56.1 (>50%) M-Mode DIMENSIONS Aortic Root3.00 (2.2-3.7cm)Aortic Cusp Exc.1.30 (1.5-2.0cm) Aortic Valve AoV Peak Tpoissur577.0cm/sAoV VTI37.6cmAO Peak GR.20mmHg LVOT Peak Uvfwclif158.0cm/sLVOT VTI23.40cmAO Mean GR.11mmHg Mitral Valve MV E Xlswsdxo414.0cm/sMV E Peak Gr.32mmHgMV A Jtulryub401.0cm/s MV E Mean Gr.16mmHgMV JMQ624tuD/A ratio0.8 MVA (PHT)2.00cm2 TDI E/Lateral E'0.0E/Medial E'0.0 Pulmonary Valve PV Peak Iugexmil773.0cm/sPV Peak Grad.4mmHg Tricuspid Valve TR Peak Oddduced858yz/sRAP VECNUNQK03vaWdHA Peak Gr.42mmHg [id number] LEFT VENTRICLE The left ventricle is normal size. There is normal left ventricular wall thickness. Left ventricle systolic function is low normal.EF-50-55% There is mild hypokinesis in the apical anterior wall. Transmitral Doppler flow pattern is Grade III-reversible restrictive diastolic dysfunction. No left ventricle thrombus noted on this study. There is no ventricular septal defect visualized. There is no left ventricular aneurysm. There is no mass noted in the left ventricle. RIGHT VENTRICLE The right ventricle is normal size. There is normal right ventricular wall thickness. The right ventricular systolic function is normal. ATRIA The left atrium is borderline dilated. The right atrium size is normal. The interatrial septum is intact with no evidence for an atrial septal defect. AORTIC VALVE The aortic valve is calcified and displays decreased opening. There is trace to mild aortic regurgitation. There is mild valvular aortic stenosis. There is no aortic valvular vegetation. MITRAL VALVE The mitral valve is calcified and displays decreased opening. Mitral annular calcification is severe. Mitral regurgitation is mild to moderate. There is mild mitral valve stenosis. There is no evidence of mitral valve prolapse. TRICUSPID VALVE The tricuspid valve leaflets are thickened , but open well. There is mild to moderate tricuspid regurgitation.RVSP-52 mmof Hg. There is no tricuspid valve stenosis. There is no tricuspid valve prolapse or vegetation. PULMONIC VALVE The pulmonic valve is mildly thickened. There is trace pulmonic valvular regurgitation. There is no pulmonic valvular stenosis. GREAT VESSELS The aortic root is normal in size. The ascending aorta is normal in size. The pulmonary artery is normal. The IVC is normal in size and collapses >50% with inspiration. PERICARDIAL EFFUSION There is no pleural effusion. There is no pericardial effusion. <Conclusion> The left ventricle is normal size. There is normal left ventricular wall thickness. Left ventricle systolic function is low normal.EF-50-55% There is trace to mild aortic regurgitation. There is mild valvular aortic stenosis. Mitral regurgitation is mild to moderate. There is mild mitral valve stenosis. There is mild to moderate tricuspid regurgitation.RVSP-52 mmof Hg. The IVC is normal in size and collapses >50% with inspiration. There is no pericardial effusion. No thrombus or vegetation noted.
[2016-11-19 08:15] LABS: FREE T4 1.11 ng/dL (0.78-2.19); T4 6.9 ug/dL (5.5-11.0)
[2016-11-19] MEDS: Cefepime 1gm in NS 100ml 1 GM/100 ML BAG IVPB SCH (08:15)
--- NOTE | 2016-11-19 08:26 | CON ---
DATE: 11/18/2016 ADDENDUM REASON FOR ADDENDUM: 1. The [facility] record, [facility] I called the patient's family and the brother, emphasized that medical record should be corrected, the telephone contact keven english because it belongs to [facility]. Also, explained the patient's condition to the and the br other, Yue Betancur. The patient may need a pacemaker later on. 2. Later on, the patient was started on IV dopamine. The patient converted to normal sinus. Now is sinus tachycardia and post-dialysis potassium is 4. Now, the patient is completely out of heart blo ck, so the plan is to discontinue dopamine and follow up CPK, troponin. If the CPK, troponin trends up, then we will consider cardiac catheterization. If the troponin remains flat, we will do the stre ss test. Discussed with the brother and the . Thank you, Dr. Garnica, for providing the opportunity in taking care of the patient. Janusz Correia MD cc: [id number] TT: 11/19/2016 07:05:17 Confirmation # [id number] Dictation # [id number] tn
--- NOTE | 2016-11-19 09:57 | CON ---
DATE: 11/18/2016 REFERRING PHYSICIAN: Dr. Garnica REASON FOR CONSULTATION: Bradycardia, electrolyte imbalance, renal failure, history of multiple myel greg, may have sleep apnea syndrome. HISTORY OF PRESENT ILLNESS: This is a 61-year-old gentleman with past medical history known to have multiple myeloma, end up with renal failure, dialysis dependent. Apparently from the last 2 days or so, he has been noncompliant with his diet. In ER, found to have hypotensive and bradycardia. Trans cutaneous pacemaker was placed. Found to have third degree heart block, found to have hyperkalemia. Dialysis has been done and feels better. Admitted to have loud snoring at nighttime, daytime sleepy and tired. No chest pain, no nausea, no vomiting, no diarrhea. No leg pain or leg swelling. PAST MEDICAL HISTORY: Multiple myeloma, renal failure, dialysis dependent. SOCIAL HISTORY: Nonsmoker, nondrinker. FAMILY HISTORY: No significant cardiopulmonary disease reported. ALLERGIES: None known. MEDICATIONS: He is on Hectorol 5 mcg IV TTS, cefepime 1 g IV q. 24 hours, Nephro vitamins daily, Tyl enol p.r.n. basis. REVIEW OF SYSTEMS: No headache, no rhinitis. Admits to have loud snoring, daytime sleepy and tired. Presently, no chest pain, no nausea, no vomiting, no diarrhea, no leg pain or leg swelling. PHYSICAL EXAMINATION: GENERAL: Lying in the bed, no acute distress. VITAL SIGNS: Temp is 98, heart rate is 92, respiratory rate is 20, blood pressure 91/78, pulse ox 94 % on room air. HEENT: Small oral cavity. Crowded airway. Mallampati score is 4. NECK: Supple. No JVD. LUNGS: Has a fair airflow with few rhonchi. HEART: S1 and S2. ABDOMEN: Soft, nontender. No organomegaly. EXTREMITIES: There is no edema. NEUROLOGIC: Awake, alert, follows simple commands. LABORATORY DATA: Shows hemoglobin 12.7, hematocrit 38.5, WBC 6.8, platelet is 152. INR 1.03, PTT is 23. Blood gases shows pH 7.38, pCO2 44, O2 53. This is on room air. Sodium 138, potassium 4.8, ch loride 96, bicarbonate is 29, BUN 35, creatinine was 6.4. LDH was 370. Troponin 0.53. Procalcitoni n 0.83. EKG done this afternoon shows normal sinus rhythm, possible left atrial enlargement, incompl ete right bundle branch block, inferior infarct, age undetermined. IMPRESSION AND PLAN: Complete heart block, originally started on dobutamine, transferred to dopamine , temporary pacemaker was placed, history of multiple myeloma, may have sleep apnea syndrome. After dialysis, his heart rate improved and dopamine was stopped. We will continue to monitor. Cardiology consult has been called. Follow up electrolytes in the morning. Keep head elevated at 45 degrees. Sequential compression devices to lower extremities. Gastric prophylaxis. Attended sleep study as outpatient. Thank you and we will follow with you. Janusz Josue MD cc: [id number] TT: 11/19/2016 09:56:35 Confirmation # [id number] Dictation # [id number] en
--- NOTE | 2016-11-19 09:57 | CARD ---
APPROVED REPORT EKG Measurement Heart [id number] ID [id number] <Conclusion> Sinus rhythm with premature supraventricular complexes with occasional premature ventricular complexes Left axis deviation Low voltage QRS Inferior infarct, age undetermined Abnormal ECG
[2016-11-19] MEDS ORDERED: Aspirin 325 mg EC Tablets PO SCH (10:00)
--- NOTE | 2016-11-19 10:21 | HP ---
CHIEF COMPLAINT: Altered mental status. HISTORY OF PRESENT ILLNESS: The patient is a 61-year-old male with past medical history of multiple myeloma and renal disease on hemodialysis, brought to the Emergency Room by ambulance for altered mental status. According to , the patient woke up from sleeping, yelling, and with altered mental status. When the paramedics arrived, he was hypotensive and bradycardiac with a heart rate of 30 BPM. The patient was given 1 mg of atropine with minimal effect. The patient was sedated with 70 mg of ketamine, placed on transcutaneous pacing , as third-degree block was noted. According to family, the patient is due for dialysis later today. History was limited, but when I saw the patient in the unit, and brother were standing on the bedside. They helped me to get the history. PAST MEDICAL HISTORY: Renal failure, on hemodialysis as above, new AV shunt in left arm, thrombocytopenia, anemia, history of blood transfusion, multiple myeloma, getting chemotherapy, has history of shingles, osteoporosis, history of gallbladder disease, AV shunt, cholecystectomy, vascular surgery. FAMILY HISTORY: Father and mother noncontributory. HABITS: Never smoked. No drugs, no ethanol. ALLERGIES: THE PATIENT IS ALLERGIC TO NO MEDICATIONS. HOME MEDICATIONS: Renagel, B-complex, PhosLo, famotidine, ferric citrate. REVIEW OF SYSTEMS: The patient was seen and examined on the bedside in the unit. and brother were on the bedside also. Feeling better, oriented x 3. No nausea, vomiting, or diarrhea. No hematuria or hematochezia. No swelling of the leg. Also no chest pain, no palpitation, no headache, no dizziness. PHYSICAL EXAMINATION: VITAL SIGNS: Pulse 95, blood pressure 91/53, oxygenation 94, respiratory rate 21, blood pressure was 120/80. HEENT: Head normocephalic, atraumatic. Eyes: PERRLA. Extraocular movements intact. Conjunctivae are clear. Nose patent. NECK: Supple. No carotid bruit, JVD, or thyromegaly. CHEST: Bilaterally symmetrical. HEART: S1, S2 positive. LUNGS: Clear to auscultation. ABDOMEN: Soft. Bowel sounds present. No organomegaly. EXTREMITIES: No edema, no cyanosis. NEUROLOGIC: The patient is awake, alert, and moving all 4 extremities. No focal deficits. LABORATORY DATA: White blood cells 6.8, hemoglobin 12.7, hematocrit 38.5, platelets 152. Sodium noted , potassium 4.8, BUN 35, creatinine 6.4, glucose 172. Troponin first set was 0.08; second 0.53 - trending upward. ASSESSMENT AND PLAN: The patient is a 61-year-old male with anemia, renal insufficiency on hemodialysis, hyperglycemia. Troponin is trending up. Sales Route Driver Helper is on the case. Proteinuria, glucosuria, hematuria, urinary tract infection, seen by Dr. Zev Reyes, infectious disease. The patient has perihilar edema probably with congestive heart failure, rule out pneumonia, bradycardia with third-degree block, transcutaneous pacemaker placement, multiple myeloma. The patient got a dose of vancomycin, started on cefepime, pending blood cultures, sputum cultures, urine culture, seen by the head usher, Dr. Correia. The patient has been getting dialysis [address] Correia, the patient has complete heart block with underlying rhythm ventricular escape, heart rate is stable, hyperkalemia. Discontinue Dobutrex, as per Dr. Correia. Started on dopamine, With dialysis, I hope potassium will go low. If it remains complete heart block, we will put the patient on pacemaker tomorrow. Given the benefit of daughter, he recovered after hyperkalemia. It is resolved. Discussion done with the patient's and the patient's brother, and the patient by himself. Gastrointestinal and deep venous thrombosis prophylaxis. Repeat labs. We will follow up. Staci Garnica MD cc: [id number] TT: 11/19/2016 10:04:43 jn 11/19/2016 09:21:07 SUSY
--- NOTE | 2016-11-19 10:31 | PN ---
DATE: 11/19/2016 REASON FOR CONSULTATION AND FOLLOWUP: Complete heart block, completely resolved, now normal sinus. Troponin positive, possible [id number] myocardial infarction. BRIEF CLINICAL HISTORY: A 61-year-old gentleman with history of multiple myeloma on dialysis who was admitted here with altered mental status, initially found to be in complete heart block and hyperkal emia, potassium 6.7. The patient was started on IV dopamine. The patient converted to normal sinus. After dialysis, repeat K was 4. Now since then, the patient is in normal sinus, off dopamine. Men tation completely cleared since yesterday morning. The patient is awake, alert, oriented to time, pl [place] and person x 3. Discussed again morning the patient does not need a pacemaker, but needs cardiac catheterization. The patient agreed, waiting for cardiac catheterization. Also, discussed with the patient's brother, Yue Betancur, telephone number [phone]. Yesterday, also discussed with the , Martinez. PHYSICAL EXAMINATION: VITAL SIGNS: Temperature febrile, heart rate 83, blood pressure 106/68. HEENT: PERRLA. Extraocular muscles intact. NECK: Supple. No carotid bruit. No thyromegaly. CHEST: Clear to auscultation. HEART: S1, S2 regular. ABDOMEN: Soft. EXTREMITIES: Clubbing and cyanosis negative. LABORATORY DATA: Blood workup as follows: WBC 3.6, hemoglobin 10.6, hematocrit 32.2, platelet count 119. Chemistry shows sodium 135, potassium 5.1, chloride 96, carbon dioxide 28, anion gap of 16, BU N 43, creatinine 7.8. First troponin 0.08, second 0.53, 0.70, 0.71. EKG last night repeated that sh ows normal sinus, left atrial abnormality, incomplete right bundle, inferior wall WA of undetermined age. IMPRESSION: Non-ST segment myocardial infarction. Altered mental status, completely cleared mentati on, possibly secondary to hyperkalemia, cannot rule out sepsis at that time. Complete heart block, c ompletely resolved, now is in normal sinus, off dopamine. Underlying coronary artery disease, possib le brb-SC-evuaiml myocardial infarction possibly, cannot rule out underlying coronary artery disease. Though the patient had renal insufficiency, this troponin could be secondary to stress and the misael l insufficiency. Hemoglobin instability, but cannot rule out underlying coronary artery disease corry use of the risk factors for coronary artery disease, dialysis for 11 years, end-stage renal disease o n dialysis. The patient had echocardiography done yesterday that showed ejection fraction 55%, trace to mild aortic regurgitation, mild valvular aortic stenosis, mild to , moderate mitral regurgitation , mild mitral stenosis, valve area 2.1 mitral valve, mild to moderate tricuspid regurgitation, right ventricular systolic pressure of 52. No pericardial effusion, no thrombus, no vegetation. RECOMMENDATION: We will load with Plavix 300, aspirin, continue antibiotic as per ID and keep n.p.o. after the breakfast for cardiac catheterization at 3:00 p.m. Thank you, Dr. Garnica, for providing us the opportunity in taking care of the patient. Janusz Correia MD cc:Staci Garnica MD [id number] TT: 11/19/2016 10:31:01 Confirmation # [id number] Dictation # [id number] tn
[2016-11-19] MEDS: Multivitamin Vitamin B Complex (Nephro-Vite) Tab PO SCH (12:31)
[2016-11-19] MEDS ORDERED: Iodixanol 320 MG/ML 100 ML BOTTLE IV ONE (14:00)
[2016-11-19] MEDS ORDERED: Lidocaine 2% Inj (20ml) ONE (14:00)
[2016-11-19] MEDS ORDERED: Iodixanol 320 MG/ML 200 ML BOTTLE IV ONE (14:00)
[2016-11-19] MEDS ORDERED: Phenylephrine 10 mg/ml Inj ONE (14:00)
[2016-11-19] MEDS ORDERED: Iohexol 350mgl/ml 50 ML ONE (14:00)
[2016-11-19] MEDS ORDERED: Nitroglycerin 50mg in D5W 0 MG/0 ML BOTTLE IV ONE (14:01)
[2016-11-19] MEDS ORDERED: Midazolam 2 MG/2 ML VIAL ONE (14:41)
--- NOTE | 2016-11-19 15:45 | CP.PCM.PN ---
Subjective - Date & Time of Evaluation Date of Evaluation: 11/19/16 Time of Evaluation: 12:00 - Subjective Subjective: Follow up Nephrology Consultation: Assessment: End stage renal disease on hemodialysis (TTS) via AVF with severe hyperkalemia with complete heart block combined respiratory and metabolic acidosis with lactic acidosis Anemia, Hyperphosphatemia, Secondary hyperparathyroidism hx of multiple myeloma Plan: for dialysis extra session today. routine HD tomorrow. Continue with Nephrovite 1 tab/day. PRBC as needed for anemia. On CLAUDIA as Aranesp 40 mcg weekly, TSAT 22% Ferritin 821 Continue with phos binders home med, add renvela Continue with Hectorol 5 mcg with dialysis. Last PTH level 893 BP tend to be low at end of HD. Patient not on RAAS pilar as low Bp and hyperkalemia Dialysis consistent diet Further work up/management as per primary team. d/w ICU. cardiology, ID involved Dose meds/antibiotics (if needed) for ESRD status. Avoid fleets enema/magnesium based laxatives. Thanks for allowing me to participate in care of your patient. Will follow patient with you. Please call if any Qs Dr Jackson rFye Office: [phone] Subjective: Noted events overnight. Patients feels okay. Denies chest pain, palpitation, shortness of breath, leg swelling. No urinary complaints Physical Examination: General Appearance: Comfortable, in no acute respiratory distress, co- operative. Vitals reviewed and noted as below Lungs: Normal respiratory rate/effort. Breath sounds bilateral equal and clear Heart: Normal rate. s1s2 normal. No rub or gallop. has transcut pacers Extremities: no edema. Neurological: Patient is alert, awake and oriented to person, place and time. No focal deficit. Strength bilateral appropriate and equal Skin: Warm and dry. Normal turgor. No rash. Palpitation: Normal elasticity for age Abdomen: Abdomen is soft. Bowel sounds +. There is no abdominal tenderness, no guarding/rigidity or organomegaly : kidney or bladder not palpable Access: AVF Labs/imaging reviewed. Past medical history, past surgical history, family history, social history, allergy reviewed Objective - Vital Signs/Intake and Output Vital Signs (last 24 hours): Temp Pulse Resp BP Pulse Ox 97.4 F L 105 H 7 L 117/71 100 11/19/16 12:00 11/19/16 14:30 11/19/16 14:30 11/19/16 13:40 11/19/16 14:30 - Medications Medications: Current Medications Acetaminophen (Tylenol 325mg Tab) 650 mg PO Q6H PRN PRN Reason: Pain, Mild (1-3) Aspirin (Ecotrin) 325 mg PO DAILY [facility] Last Admin: 11/19/16 12:31 Dose: 325 mg Clopidogrel Bisulfate (Plavix) 75 mg PO DAILY NEL[facility] Doxercalciferol (Hectorol) 5 mcg IV TTS N[facility] Cefepime HCl (Maxipime 1gm) 1 gm in 100 mls @ 100 mls/hr IVPB Q24H NEL[facility] PRN Reason: Protocol Last Admin: 11/19/16 08:15 Dose: 100 mls/hr Vitamin B Complex/Vit C/Folic Acid (Nephro-Thomas) 1 tab PO DAILY [facility] Last Admin: 11/19/16 12:31 Dose: 1 tab - Labs Labs: 11/19/16 05:00 11/19/16 05:00 PT 11.1 Seconds (9.9-11.8) 11/18/16 04:50 INR 1.03 (0.93-1.08) 11/18/16 04:50 APTT 22.8 Seconds (23.7-30.8) L 11/18/16 04:50
[2016-11-19] MEDS ORDERED: Darbepoetin Alfa 40 mcg/ml Inj IVP ONE (16:00)
--- NOTE | 2016-11-19 16:19 | CP.CCUPN ---
<Jasmina Townsend - Last Filed: 11/19/16 16:54> CCU Subjective - Physician Review Events Since Last Encounter (Free Text): 11/19/16 16:17 Pt s/e at bedside this AM. NAEO. Patient underwent HD at bedside yesterday with improvement of his electrolyte imbalances. Patient afebrile, VSS. AA&Ox3 with neuromuscular function intact. Patient reports burning sensation in his urethra after the urinary catheter was removed, but denies any lower back pain, headaches, dizziness, chest pain, SOB, nausea, vomiting, diarrhea, constipation , or fevers. Patient currently on hemodialysis in anticipation of cardiac cath later today. CCU Objective - Vital Signs / Intake & Output Vital Signs (Last 4 hours): Vital Signs Pulse Resp BP Pulse Ox 11/19/16 14:30 105 H 7 L 100 11/19/16 14:20 101 H 23 96 11/19/16 14:10 95 H 19 99 11/19/16 14:00 96 H 60 H 99 11/19/16 13:50 90 21 99 11/19/16 13:40 99 H 29 H 117/71 100 11/19/16 13:30 88 17 100 11/19/16 13:21 90 18 104/49 L 99 11/19/16 13:20 88 16 99 11/19/16 13:10 90 21 98 11/19/16 13:00 96 H 18 96/53 L 99 11/19/16 12:50 98 H 24 98 11/19/16 12:40 97 H 15 82/56 L 98 11/19/16 12:30 102 H 17 100 11/19/16 12:21 95 H 27 H 85/54 L 100 11/19/16 12:20 101 H 22 97 - Physical Exam Head: Positive for: Atraumatic, Normocephalic Pupils: Positive for: PERRL Conjunctiva: Positive for: Normal Pharnyx: Positive for: Normal Nose (External): Positive for: Atraumatic. Negative for: Abrasion, Contusion Neck: Positive for: Normal Range of Motion Respiratory/Chest: Positive for: Clear to Auscultation, Good Air Exchange. Negative for: Respiratory Distress, Accessory Muscle Use Cardiovascular: Positive for: Regular Rate and Rhythm, Normal S1, S2. Negative for: Murmurs Abdomen: Positive for: Normal Bowel Sounds. Negative for: Tenderness, Distention, Peritoneal Signs Back: Positive for: Normal Inspection Upper Extremity: Positive for: Normal Inspection. Negative for: Cyanosis, Edema Lower Extremity: Positive for: Normal Inspection. Negative for: Edema Neurological: Positive for: GCS=15, CN II-XII Intact, Speech Normal, Motor Func Grossly Intact, Normal Sensory Function, Memory Normal Skin: Positive for: Warm, Dry, Normal Color. Negative for: Rashes Psychiatric: Positive for: Alert, Oriented x 3, Normal Insight, Normal Concentration, Normal Affect, Normal Mood - Medications Active Medications: Active Medications Generic Name Dose Route Start Last Admin Trade Name Freq PRN Reason Stop Dose Admin Acetaminophen 650 mg 11/18/16 17:02 Tylenol 325mg Tab PO Q6H PRN Pain, Mild (1-3) Aspirin 81 mg 11/20/16 10:00 Ecotrin PO DAILY PENDING SALE TO [facility] Clopidogrel Bisulfate 75 mg 11/20/16 10:00 Plavix PO DAILY PENDING SALE TO [facility] Doxercalciferol 5 mcg 11/20/16 10:00 Hectorol IV TTS PENDING SALE TO [facility] Cefepime HCl 1 gm in 100 mls @ 100 mls/hr 11/18/16 09:15 11/19/16 08:15 Maxipime 1gm IVPB 100 mls/hr Q24H PENDING SALE TO [facility] Administration Protocol Sevelamer HCl 800 mg 11/19/16 18:00 Renagel PO TID PENDING SALE TO [facility] Vitamin B Complex/Vit C/Folic Acid 1 tab 11/19/16 10:00 11/19/16 12:31 Nephro-Thomas PO 1 tab DAILY NELIA Administration - Patient Studies Lab Studies: Microbiology Studies 11/18/16 06:15 Urine Culture - Final Urine No Growth (<1,000 CFU/ML) 11/18/16 06:00 Blood Culture - Preliminary Blood NO GROWTH AFTER 24 HOURS Lab Studies 11/19/16 11/19/16 11/19/16 Range/Units 05:30 05:00 05:00 WBC (4.5-11.0) 10^3/ul RBC (3.5-6.1) 10^6/uL Hgb (14.0-18.0) gm/dL Hct (42.0-52.0) % MCV (80.0-105.0) fL MCH (25.0-35.0) pg MCHC (31.0-37.0) g/dl RDW (11.5-14.5) % Plt Count (120.0-450.0) 10^3/uL MPV (7.0-11.0) fl Gran % (50.0-68.0) % Lymph % (Auto) (22.0-35.0) % [place] % (Auto) (1.0-6.0) % Eos % (Auto) (1.5-5.0) % Baso % (Auto) (0.0-3.0) % Gran # (1.4-6.5) Lymph # (1.2-3.4) [place] # (0.1-0.6) Eos # (0.0-0.7) Baso # (0.0-2.0) K/mm3 pO2 (30-55) mm/Hg VBG pH (7.32-7.43) VBG pCO2 (40-60) VBG HCO3 (21-28) mmol/l VBG Total CO2 (22-28) mmol.L VBG O2 Sat (Calc) (40-65) % VBG Base Excess (0.0-2.0) mmol/L VBG Potassium (3.6-5.2) mmol/L Sodium (132-148) mmol/L Chloride (98-107) mmol/L Glucose (75-110) mg/dl Lactate (0.7-2.1) mmol/L FiO2 % Potassium (3.6-5.0) mmol/L Carbon Dioxide (21-33) mmol/L Anion Gap (10-20) BUN (7-21) mg/dL Creatinine (0.5-1.4) mg/dL Est GFR ( Amer) Est GFR (Non-Af Amer) Random Glucose (70-110) mg/dL Hemoglobin A1c 5.3 (4.2-6.5) % Calcium (8.4-10.5) mg/dL Phosphorus (2.5-4.5) mg/dL Magnesium (1.7-2.2) mg/dL Total Bilirubin (0.2-1.3) mg/dL AST (15-59) U/L ALT (7-56) U/L Alkaline Phosphatase (38-133) U/L Lactate Dehydrogenase (333-699) U/L Total Creatine Kinase (35-230) U/L Troponin I ng/mL Total Protein (5.8-8.3) g/dL Albumin (3.0-4.8) g/dL Globulin gm/dL Albumin/Globulin Ratio (1.1-1.8) Triglycerides (35-160) mg/dL Cholesterol (130-200) mg/dL LDL Cholesterol Direct (0-129) mg/dL HDL Cholesterol (29-60) mg/dL Free T4 1.11 (0.78-2.19) ng/dL Thyroxine (T4) 6.9 (5.5-11.0) ug/dL TSH 3rd Generation 0.2 L (0.46-4.68) MIU/ml Venous Blood Potassium (3.6-5.2) mmol/L 11/19/16 11/19/16 11/18/16 Range/Units 05:00 05:00 23:29 WBC 3.6 L D (4.5-11.0) 10^3/ul RBC 3.17 L (3.5-6.1) 10^6/uL Hgb 10.6 L (14.0-18.0) gm/dL Hct 32.2 L (42.0-52.0) % MCV 101.6 (80.0-105.0) fL MCH 33.4 (25.0-35.0) pg MCHC 32.9 (31.0-37.0) g/dl RDW 14.5 (11.5-14.5) % Plt Count 119 L (120.0-450.0) 10^3/uL MPV 11.0 (7.0-11.0) fl Gran % 76.1 H (50.0-68.0) % Lymph % (Auto) 14.4 L (22.0-35.0) % [place] % (Auto) 8.1 H (1.0-6.0) % Eos % (Auto) 1.1 L (1.5-5.0) % Baso % (Auto) 0.3 (0.0-3.0) % Gran # 2.74 (1.4-6.5) Lymph # 0.5 L (1.2-3.4) [place] # 0.3 (0.1-0.6) Eos # 0.0 (0.0-0.7) Baso # 0.01 (0.0-2.0) K/mm3 pO2 (30-55) mm/Hg VBG pH (7.32-7.43) VBG pCO2 (40-60) VBG HCO3 (21-28) mmol/l VBG Total CO2 (22-28) mmol.L VBG O2 Sat (Calc) (40-65) % VBG Base Excess (0.0-2.0) mmol/L VBG Potassium (3.6-5.2) mmol/L Sodium 135 135 (132-148) mmol/L Chloride 96 96 L (98-107) mmol/L Glucose (75-110) mg/dl Lactate (0.7-2.1) mmol/L FiO2 % Potassium 5.1 H 4.9 (3.6-5.0) mmol/L Carbon Dioxide 28 30 (21-33) mmol/L Anion Gap 16 14 (10-20) BUN 43 H 39 H (7-21) mg/dL Creatinine 7.8 H 7.1 H (0.5-1.4) mg/dL Est GFR ( Amer) 9 10 Est GFR (Non-Af Amer) 7 8 Random Glucose 80 85 (70-110) mg/dL Hemoglobin A1c (4.2-6.5) % Calcium 8.1 L 7.9 L (8.4-10.5) mg/dL Phosphorus 6.2 H (2.5-4.5) mg/dL Magnesium 2.0 (1.7-2.2) mg/dL Total Bilirubin 0.8 (0.2-1.3) mg/dL AST 33 (15-59) U/L ALT 47 (7-56) U/L Alkaline Phosphatase 39 (38-133) U/L Lactate Dehydrogenase 422 (333-699) U/L Total Creatine Kinase 108 136 (35-230) U/L Troponin I 0.71 H* 0.70 H* D ng/mL Total Protein 6.7 (5.8-8.3) g/dL Albumin 3.6 (3.0-4.8) g/dL Globulin 3.0 gm/dL Albumin/Globulin Ratio 1.2 (1.1-1.8) Triglycerides 105 (35-160) mg/dL Cholesterol 147 (130-200) mg/dL LDL Cholesterol Direct 89 (0-129) mg/dL HDL Cholesterol 38 (29-60) mg/dL Free T4 (0.78-2.19) ng/dL Thyroxine (T4) (5.5-11.0) ug/dL TSH 3rd Generation (0.46-4.68) MIU/ml Venous Blood Potassium (3.6-5.2) mmol/L 11/18/16 11/18/16 Range/Units 17:00 17:00 WBC (4.5-11.0) 10^3/ul RBC (3.5-6.1) 10^6/uL Hgb (14.0-18.0) gm/dL Hct (42.0-52.0) % MCV (80.0-105.0) fL MCH (25.0-35.0) pg MCHC (31.0-37.0) g/dl RDW (11.5-14.5) % Plt Count (120.0-450.0) 10^3/uL MPV (7.0-11.0) fl Gran % (50.0-68.0) % Lymph % (Auto) (22.0-35.0) % [place] % (Auto) (1.0-6.0) % Eos % (Auto) (1.5-5.0) % Baso % (Auto) (0.0-3.0) % Gran # (1.4-6.5) Lymph # (1.2-3.4) [place] # (0.1-0.6) Eos # (0.0-0.7) Baso # (0.0-2.0) K/mm3 pO2 44 (30-55) mm/Hg VBG pH 7.38 (7.32-7.43) VBG pCO2 53.0 (40-60) VBG HCO3 31.4 H (21-28) mmol/l VBG Total CO2 33.0 H (22-28) mmol.L VBG O2 Sat (Calc) 80.5 H (40-65) % VBG Base Excess 5.1 H (0.0-2.0) mmol/L VBG Potassium 4.9 (3.6-5.2) mmol/L Sodium 136.0 138 (132-148) mmol/L Chloride 102.0 96 L (98-107) mmol/L Glucose 171 H (75-110) mg/dl Lactate 1.9 (0.7-2.1) mmol/L FiO2 21.0 % Potassium 4.8 (3.6-5.0) mmol/L Carbon Dioxide 29 (21-33) mmol/L Anion Gap 18 (10-20) BUN 35 H (7-21) mg/dL Creatinine 6.4 H (0.5-1.4) mg/dL Est GFR ( Amer) 11 Est GFR (Non-Af Amer) 9 Random Glucose 172 H (70-110) mg/dL Hemoglobin A1c (4.2-6.5) % Calcium 8.4 (8.4-10.5) mg/dL Phosphorus (2.5-4.5) mg/dL Magnesium (1.7-2.2) mg/dL Total Bilirubin (0.2-1.3) mg/dL AST (15-59) U/L ALT (7-56) U/L Alkaline Phosphatase (38-133) U/L Lactate Dehydrogenase 370 (333-699) U/L Total Creatine Kinase 132 (35-230) U/L Troponin I 0.53 H* D ng/mL Total Protein (5.8-8.3) g/dL Albumin (3.0-4.8) g/dL Globulin gm/dL Albumin/Globulin Ratio (1.1-1.8) Triglycerides (35-160) mg/dL Cholesterol (130-200) mg/dL LDL Cholesterol Direct (0-129) mg/dL HDL Cholesterol (29-60) mg/dL Free T4 (0.78-2.19) ng/dL Thyroxine (T4) (5.5-11.0) ug/dL TSH 3rd Generation (0.46-4.68) MIU/ml Venous Blood Potassium 4.9 (3.6-5.2) mmol/L Laboratory Results - last 24 hr 11/18/16 11/18/16 11/18/16 17:00 17:00 23:29 WBC RBC Hgb Hct MCV MCH MCHC RDW Plt Count MPV Gran % Lymph % (Auto) [place] % (Auto) Eos % (Auto) Baso % (Auto) Gran # Lymph # [place] # Eos # Baso # pO2 44 VBG pH 7.38 VBG pCO2 53.0 VBG HCO3 31.4 H VBG Total CO2 33.0 H VBG O2 Sat (Calc) 80.5 H VBG Base Excess 5.1 H VBG Potassium 4.9 Sodium 138 136.0 135 Chloride 96 L 102.0 96 L Glucose 171 H Lactate 1.9 FiO2 21.0 Potassium 4.8 4.9 Carbon Dioxide 29 30 Anion Gap 18 14 BUN 35 H 39 H Creatinine 6.4 H 7.1 H Est GFR ( Amer) 11 10 Est GFR (Non-Af Amer) 9 8 Random Glucose 172 H 85 Hemoglobin A1c Calcium 8.4 7.9 L Phosphorus Magnesium Total Bilirubin AST ALT Alkaline Phosphatase Lactate Dehydrogenase 370 Total Creatine Kinase 132 136 Troponin I 0.53 H* D 0.70 H* D Total Protein Albumin Globulin Albumin/Globulin Ratio Triglycerides Cholesterol LDL Cholesterol Direct HDL Cholesterol Free T4 Thyroxine (T4) TSH 3rd Generation Venous Blood Potassium 4.9 11/19/16 11/19/16 11/19/16 05:00 05:00 05:00 WBC 3.6 L D RBC 3.17 L Hgb 10.6 L Hct 32.2 L MCV 101.6 MCH 33.4 MCHC 32.9 RDW 14.5 Plt Count 119 L MPV 11.0 Gran % 76.1 H Lymph % (Auto) 14.4 L [place] % (Auto) 8.1 H Eos % (Auto) 1.1 L Baso % (Auto) 0.3 Gran # 2.74 Lymph # 0.5 L [place] # 0.3 Eos # 0.0 Baso # 0.01 pO2 VBG pH VBG pCO2 VBG HCO3 VBG Total CO2 VBG O2 Sat (Calc) VBG Base Excess VBG Potassium Sodium 135 Chloride 96 Glucose Lactate FiO2 Potassium 5.1 H Carbon Dioxide 28 Anion Gap 16 BUN 43 H Creatinine 7.8 H Est GFR ( Amer) 9 Est GFR (Non-Af Amer) 7 Random Glucose 80 Hemoglobin A1c 5.3 Calcium 8.1 L Phosphorus 6.2 H Magnesium 2.0 Total Bilirubin 0.8 AST 33 ALT 47 Alkaline Phosphatase 39 Lactate Dehydrogenase 422 Total Creatine Kinase 108 Troponin I 0.71 H* Total Protein 6.7 Albumin 3.6 Globulin 3.0 Albumin/Globulin Ratio 1.2 Triglycerides 105 Cholesterol 147 LDL Cholesterol Direct 89 HDL Cholesterol 38 Free T4 Thyroxine (T4) TSH 3rd Generation Venous Blood Potassium 11/19/16 11/19/16 05:00 05:30 WBC RBC Hgb Hct MCV MCH MCHC RDW Plt Count MPV Gran % Lymph % (Auto) [place] % (Auto) Eos % (Auto) Baso % (Auto) Gran # Lymph # [place] # Eos # Baso # pO2 VBG pH VBG pCO2 VBG HCO3 VBG Total CO2 VBG O2 Sat (Calc) VBG Base Excess VBG Potassium Sodium Chloride Glucose Lactate FiO2 Potassium Carbon Dioxide Anion Gap BUN Creatinine Est GFR ( Amer) Est GFR (Non-Af Amer) Random Glucose Hemoglobin A1c Calcium Phosphorus Magnesium Total Bilirubin AST ALT Alkaline Phosphatase Lactate Dehydrogenase Total Creatine Kinase Troponin I Total Protein Albumin Globulin Albumin/Globulin Ratio Triglycerides Cholesterol LDL Cholesterol Direct HDL Cholesterol Free T4 1.11 Thyroxine (T4) 6.9 TSH 3rd Generation 0.2 L Venous Blood Potassium EKG/Cardiology Studies: Cardiology / EKG Studies 11/18/16 17:00 EKG [ELECTROCARDIOGRAM] Q6H Comment: Reason For Exam: heart block 11/19/16 07:00 ELECTROCARDIOGRAM Routine Comment: Reason For Exam: CHB PRE OP:: N Does Patient Have a Pacemaker?: No PERFORMING PHYSICIAN/PROVIDER:: Janusz Correia Review of Systems - Review of Systems All systems: reviewed and no additional remarkable complaints except - EENT Eyes: absent: Change in Vision - Cardiovascular Cardiovascular: As Per HPI - Respiratory Respiratory: As Per HPI. absent: Cough - Gastrointestinal Gastrointestinal: As Per HPI. absent: Abdominal Pain - Genitourinary Genitourinary: As Per HPI - Musculoskeletal Musculoskeletal: As Par HPI - Integumentary Integumentary: UNREMARKABLE - Neurological Neurological: As Per HPI - Psychiatric Psychiatric: UNREMARKABLE - Endocrine Endocrine: UNREMARKABLE Critical Care Progress Note - Nutrition Nutrition: Nutrition Category Date Time Status NPO Diet [DIET] Diets 11/19/16 Lunch Ordered Assessment/Plan - Assessment and Plan (Free Text) Assessment: 61M with PMH of ESRD and multiple myeloma who presented to the ICU yesterday with AMS, bradycardia with 3rd AV block that resolved with dopamin drip, and hyperkalemia who underwent dialysis yesterday with improved AMS. Neuro: Awake, alert, orientedx3, no neurological complaints or concerns Gross neuromuscularly intact Continue to monitor Cardio: Denies chest pain, normocardic off dopamin drip RRR, S1/S1, no murmurs Troponin elevated at 0.71 up from 0,04 yesterday Echo: 50-55% LVEF with moderate tricuspid regurgitation Continue to monitor, going for cardiac cath with Dr. Correia later today Continue ASA and plavix in preparation for the catheterization Follow up cardiac recs post-cath Pulm: No SOB, no cough CTAB, SaO2 100% on RA Continue to monitor Supplement O2 as needed to keep SaO2>94% GI: no nausea, no vomiting Abdominal exam benign CLD, NPO for lunch for catheterization Continue to monitor : Burning sensation in urethra s/p kennedy catheter insertion and removal UA 11/18: blood Chronically oliguric 2/2 CKD Continue to monitor Tylenol PO PRN for pain Endo: glucose 80 this AM Continue to monitor with daily BMP's Nephro: HD yesterday and this AM nephrology following K 5.1 this AM continue to monitor ID: Afebrile overnight, normocardic no leukocytosis Follow up ID recs regarding antibiotic therapy duration ppx: SCD's, pepcid PO Dispo: continue ICU monitoring and management pending outcome of cardiac cath Seen and discussed with Dr. Mai Townsend, PGY1 <Brian Oneill - Last Filed: 11/19/16 18:02> CCU Objective - Vital Signs / Intake & Output Vital Signs (Last 4 hours): Vital Signs Pulse Resp Pulse Ox 11/19/16 14:30 105 H 7 L 100 11/19/16 14:20 101 H 23 96 11/19/16 14:10 95 H 19 99 - Medications Active Medications: Active Medications Generic Name Dose Route Start Last Admin Trade Name Freq PRN Reason Stop Dose Admin Acetaminophen 650 mg 11/18/16 17:02 Tylenol 325mg Tab PO Q6H PRN Pain, Mild (1-3) Aspirin 81 mg 11/20/16 10:00 Ecotrin PO DAILY NELIA Clopidogrel Bisulfate 75 mg 11/20/16 10:00 Plavix PO DAILY NELIA Doxercalciferol 5 mcg 11/20/16 10:00 Hectorol IV TTS NELIA Famotidine 40 mg 11/19/16 22:00 Pepcid PO HS NELIA Cefepime HCl 1 gm in 100 mls @ 100 mls/hr 11/18/16 09:15 11/19/16 08:15 Maxipime 1gm IVPB 100 mls/hr Q24H NELIA Administration Protocol Sevelamer HCl 800 mg 11/19/16 18:00 Renagel PO TID NELIA Vitamin B Complex/Vit C/Folic Acid 1 tab 11/19/16 10:00 11/19/16 12:31 Nephro-Thomas PO 1 tab DAILY NELIA Administration - Patient Studies Lab Studies: Microbiology Studies 11/18/16 06:15 Urine Culture - Final Urine No Growth (<1,000 CFU/ML) 11/18/16 06:00 Blood Culture - Preliminary Blood NO GROWTH AFTER 24 HOURS Lab Studies 11/19/16 11/19/16 11/19/16 Range/Units 05:30 05:00 05:00 WBC (4.5-11.0) 10^3/ul RBC (3.5-6.1) 10^6/uL Hgb (14.0-18.0) gm/dL Hct (42.0-52.0) % MCV (80.0-105.0) fL MCH (25.0-35.0) pg MCHC (31.0-37.0) g/dl RDW (11.5-14.5) % Plt Count (120.0-450.0) 10^3/uL MPV (7.0-11.0) fl Gran % (50.0-68.0) % Lymph % (Auto) (22.0-35.0) % [place] % (Auto) (1.0-6.0) % Eos % (Auto) (1.5-5.0) % Baso % (Auto) (0.0-3.0) % Gran # (1.4-6.5) Lymph # (1.2-3.4) [place] # (0.1-0.6) Eos # (0.0-0.7) Baso # (0.0-2.0) K/mm3 Sodium (132-148) mmol/L Potassium (3.6-5.0) mmol/L Chloride (98-107) mmol/L Carbon Dioxide (21-33) mmol/L Anion Gap (10-20) BUN (7-21) mg/dL Creatinine (0.5-1.4) mg/dL Est GFR ( Amer) Est GFR (Non-Af Amer) Random Glucose (70-110) mg/dL Hemoglobin A1c 5.3 (4.2-6.5) % Calcium (8.4-10.5) mg/dL Phosphorus (2.5-4.5) mg/dL Magnesium (1.7-2.2) mg/dL Total Bilirubin (0.2-1.3) mg/dL AST (15-59) U/L ALT (7-56) U/L Alkaline Phosphatase (38-133) U/L Lactate Dehydrogenase (333-699) U/L Total Creatine Kinase (35-230) U/L Troponin I ng/mL Total Protein (5.8-8.3) g/dL Albumin (3.0-4.8) g/dL Globulin gm/dL Albumin/Globulin Ratio (1.1-1.8) Triglycerides (35-160) mg/dL Cholesterol (130-200) mg/dL LDL Cholesterol Direct (0-129) mg/dL HDL Cholesterol (29-60) mg/dL Free T4 1.11 (0.78-2.19) ng/dL Thyroxine (T4) 6.9 (5.5-11.0) ug/dL TSH 3rd Generation 0.2 L (0.46-4.68) MIU/ml 11/19/16 11/19/16 11/18/16 Range/Units 05:00 05:00 23:29 WBC 3.6 L D (4.5-11.0) 10^3/ul RBC 3.17 L (3.5-6.1) 10^6/uL Hgb 10.6 L (14.0-18.0) gm/dL Hct 32.2 L (42.0-52.0) % MCV 101.6 (80.0-105.0) fL MCH 33.4 (25.0-35.0) pg MCHC 32.9 (31.0-37.0) g/dl RDW 14.5 (11.5-14.5) % Plt Count 119 L (120.0-450.0) 10^3/uL MPV 11.0 (7.0-11.0) fl Gran % 76.1 H (50.0-68.0) % Lymph % (Auto) 14.4 L (22.0-35.0) % [place] % (Auto) 8.1 H (1.0-6.0) % Eos % (Auto) 1.1 L (1.5-5.0) % Baso % (Auto) 0.3 (0.0-3.0) % Gran # 2.74 (1.4-6.5) Lymph # 0.5 L (1.2-3.4) [place] # 0.3 (0.1-0.6) Eos # 0.0 (0.0-0.7) Baso # 0.01 (0.0-2.0) K/mm3 Sodium 135 135 (132-148) mmol/L Potassium 5.1 H 4.9 (3.6-5.0) mmol/L Chloride 96 96 L (98-107) mmol/L Carbon Dioxide 28 30 (21-33) mmol/L Anion Gap 16 14 (10-20) BUN 43 H 39 H (7-21) mg/dL Creatinine 7.8 H 7.1 H (0.5-1.4) mg/dL Est GFR ( Amer) 9 10 Est GFR (Non-Af Amer) 7 8 Random Glucose 80 85 (70-110) mg/dL Hemoglobin A1c (4.2-6.5) % Calcium 8.1 L 7.9 L (8.4-10.5) mg/dL Phosphorus 6.2 H (2.5-4.5) mg/dL Magnesium 2.0 (1.7-2.2) mg/dL Total Bilirubin 0.8 (0.2-1.3) mg/dL AST 33 (15-59) U/L ALT 47 (7-56) U/L Alkaline Phosphatase 39 (38-133) U/L Lactate Dehydrogenase 422 (333-699) U/L Total Creatine Kinase 108 136 (35-230) U/L Troponin I 0.71 H* 0.70 H* D ng/mL Total Protein 6.7 (5.8-8.3) g/dL Albumin 3.6 (3.0-4.8) g/dL Globulin 3.0 gm/dL Albumin/Globulin Ratio 1.2 (1.1-1.8) Triglycerides 105 (35-160) mg/dL Cholesterol 147 (130-200) mg/dL LDL Cholesterol Direct 89 (0-129) mg/dL HDL Cholesterol 38 (29-60) mg/dL Free T4 (0.78-2.19) ng/dL Thyroxine (T4) (5.5-11.0) ug/dL TSH 3rd Generation (0.46-4.68) MIU/ml Laboratory Results - last 24 hr 11/18/16 11/19/16 11/19/16 23:29 05:00 05:00 WBC 3.6 L D RBC 3.17 L Hgb 10.6 L Hct 32.2 L MCV 101.6 MCH 33.4 MCHC 32.9 RDW 14.5 Plt Count 119 L MPV 11.0 Gran % 76.1 H Lymph % (Auto) 14.4 L [place] % (Auto) 8.1 H Eos % (Auto) 1.1 L Baso % (Auto) 0.3 Gran # 2.74 Lymph # 0.5 L [place] # 0.3 Eos # 0.0 Baso # 0.01 Sodium 135 135 Potassium 4.9 5.1 H Chloride 96 L 96 Carbon Dioxide 30 28 Anion Gap 14 16 BUN 39 H 43 H Creatinine 7.1 H 7.8 H Est GFR ( Amer) 10 9 Est GFR (Non-Af Amer) 8 7 Random Glucose 85 80 Hemoglobin A1c Calcium 7.9 L 8.1 L Phosphorus 6.2 H Magnesium 2.0 Total Bilirubin 0.8 AST 33 ALT 47 Alkaline Phosphatase 39 Lactate Dehydrogenase 422 Total Creatine Kinase 136 108 Troponin I 0.70 H* D 0.71 H* Total Protein 6.7 Albumin 3.6 Globulin 3.0 Albumin/Globulin Ratio 1.2 Triglycerides 105 Cholesterol 147 LDL Cholesterol Direct 89 HDL Cholesterol 38 Free T4 Thyroxine (T4) TSH 3rd Generation 11/19/16 11/19/16 11/19/16 05:00 05:00 05:30 WBC RBC Hgb Hct MCV MCH MCHC RDW Plt Count MPV Gran % Lymph % (Auto) [place] % (Auto) Eos % (Auto) Baso % (Auto) Gran # Lymph # [place] # Eos # Baso # Sodium Potassium Chloride Carbon Dioxide Anion Gap BUN Creatinine Est GFR ( Amer) Est GFR (Non-Af Amer) Random Glucose Hemoglobin A1c 5.3 Calcium Phosphorus Magnesium Total Bilirubin AST ALT Alkaline Phosphatase Lactate Dehydrogenase Total Creatine Kinase Troponin I Total Protein Albumin Globulin Albumin/Globulin Ratio Triglycerides Cholesterol LDL Cholesterol Direct HDL Cholesterol Free T4 1.11 Thyroxine (T4) 6.9 TSH 3rd Generation 0.2 L EKG/Cardiology Studies: Cardiology / EKG Studies 11/19/16 07:00 ELECTROCARDIOGRAM Routine Comment: Reason For Exam: CHB PRE OP:: N Does Patient Have a Pacemaker?: No PERFORMING PHYSICIAN/PROVIDER:: Janusz Correia Critical Care Progress Note - Nutrition Nutrition: Nutrition Category Date Time Status Renal Diet [DIET] Diets 11/19/16 Dinner Ordered Addendum Addendum: 11/19/16 18:00 patient was seen, examined and discussed at bedside with Dr. Townsend. Her note reflects my exam, assessment and plan except as below. Meds/Labs/ONE reviewed. AVB resolved, with resolution of acidosis and hyperKaliemia. No need for pacer at present time. Hemodynamically stable, respiratory burks stable. angio: small vessel disease, no stents--ok to downgrade to tele ccm time 40 min
--- NOTE | 2016-11-19 16:50 | CP.PCM.PN ---
Subjective - Date & Time of Evaluation Date of Evaluation: 11/19/16 Time of Evaluation: 09:10 - Subjective Subjective: Undergoing dialysis without issues. Comfortable, not in distress, afebrile overnight. Objective - Vital Signs/Intake and Output Vital Signs (last 24 hours): Temp Pulse Resp BP Pulse Ox 97.4 F L 105 H 7 L 117/71 100 11/19/16 12:00 11/19/16 14:30 11/19/16 14:30 11/19/16 13:40 11/19/16 14:30 - Medications Medications: Current Medications Acetaminophen (Tylenol 325mg Tab) 650 mg PO Q6H PRN PRN Reason: Pain, Mild (1-3) Aspirin (Ecotrin) 81 mg PO DAILY NELIA Clopidogrel Bisulfate (Plavix) 75 mg PO DAILY NELIA Doxercalciferol (Hectorol) 5 mcg IV TTS NELIA Cefepime HCl (Maxipime 1gm) 1 gm in 100 mls @ 100 mls/hr IVPB Q24H NELIA PRN Reason: Protocol Last Admin: 11/19/16 08:15 Dose: 100 mls/hr Sevelamer HCl (Renagel) 800 mg PO TID NELIA Vitamin B Complex/Vit C/Folic Acid (Nephro-Thomas) 1 tab PO DAILY NELIA Last Admin: 11/19/16 12:31 Dose: 1 tab - Labs Labs: 11/19/16 05:00 11/19/16 05:00 PT 11.1 Seconds (9.9-11.8) 11/18/16 04:50 INR 1.03 (0.93-1.08) 11/18/16 04:50 APTT 22.8 Seconds (23.7-30.8) L 11/18/16 04:50 - Constitutional Appears: Non-toxic, No Acute Distress - Head Exam Head Exam: NORMAL INSPECTION - Respiratory Exam Respiratory Exam: Decreased Breath Sounds - Cardiovascular Exam Cardiovascular Exam: +S1, +S2 - GI/Abdominal Exam GI & Abdominal Exam: Soft. absent: Tenderness Assessment and Plan - Assessment and Plan (Free Text) Plan: Assessment Perihilar edema probably CHF rule out pneumonia symptomatic bradycardia with 3rd degree AV block S/P temporary transcutaneous pacemaker placement ESRD on HD multiple myeloma Plan continue cefepime day 2; blood cx negative x 1 day; PCT is slightly elevated but patient has chronic renal failure; if cultures continue to be negative and there is improvement in perihilar edema, may d/c antibiotics tomorrow will monitor clinically
--- NOTE | 2016-11-19 18:38 | PN ---
DATE: 11/19/2016 REFERRING PHYSICIAN: Dr. Garnica. SUBJECTIVE: He is lying in the bed, head at 45 degrees, feeling better since dialysis. Heart rate i s now improved. Admits to have snoring, daytime sleepy. No nausea, vomiting, diarrhea. No leg swel ling. OBJECTIVE: GENERAL: No acute distress. VITAL SIGNS: Temperature is 98, heart rate is , respiratory rate is 20, blood pressure 117/71. HEENT: Moist mucous membranes. Crowded airway. Mallampati score is 4. NECK: Supple. No JVD. LUNGS: Has a fair airflow . HEART: S1, S2. ABDOMEN: Soft, nontender. No organomegaly. EXTREMITIES: There is no edema. NEUROLOGIC: Awake, alert, follows simple commands. MEDICATIONS: He is on Ecotrin 81 mg daily, , cefepime 1 g IV q. 24 hours, Nephro vitamins daily , Plavix 75 mg daily, Renagel 800 mg 3 times a day, Tylenol on p.r.n. basis. LABORATORY DATA: Shows hemoglobin 10.6, hematocrit 32.2, WBC 3.6, platelet is 101.9, INR 1.0, PTT is 23. Sodium 135, potassium 5.1, chloride 96, bicarbonate 28, BUN , creatinine 7.8, hemoglobin A 1c 5.3, calcium 8.1, phosphorus is 6.2, AST 33, ALT 27, alkaline phosphatase is 39. Troponin 0.71. Albumin is 3.6. T4 free is 1.01. TSH is 0.2. Thyroxine is 6.9. Microbiology: Blood cultures, uri ne culture is no growth. IMPRESSION AND PLAN: Complete heart block with hyperkalemia, dobutamine, dopamine was given and also received temporary pa cemaker, after dialysis he did well, now has a tachycardia. There may be component of sleep apnea sy ndrome, also has positive cardiac enzymes. Cardiac workup in progress including cardiac catheterizat ion. Keep head at 45 degrees , close cardiopulmonary monitoring while sedated. We will recomme nd outpatient sleep study upon discharge. Thank you and we will follow with you. Janusz Josue MD cc: [id number] TT: 11/19/2016 18:37:38 Confirmation # [id number] Dictation # [id number] cn
--- NOTE | 2016-11-19 19:13 | CARD ---
APPROVED REPORT Procedure(s) performed: Left Heart Catheterization HISTORY The patient is a 61 year-old male with a history of : most recent EF: 55%. (EF Method: Echocardiogram), previous CHF, renal failure with dialysis, Admitted with CHB, hyperkalemia and altered mental status, which completely resolve with dopamine and dialysis but troponin remains persistently positive.. INDICATION The indication(s) include : non-STEMI . CASE TECHNIQUE The patient was brought electively to the Cardiac Catheterization Laboratory in a fasting state and was prepped and draped in a sterile manner. The right femoral groin was infiltrated with 2% Lidocaine subcutaneous anesthesia. A 6 Fr x 11 cm Lady sheath was inserted into the right femoral artery without difficulty. Coronary angiography was performed using coronary diagnostic catheters. The left coronary system was accessed and visualized with a Diagnostic ,6 Fr JL 4 catheter. The right coronary system was accessed and visualized with a Diagnostic ,6 Fr JR 4 catheter. The left ventricle was accessed and visualized with a 6 Fr JR 4 catheter. Left ventricular/Aortic Valve gradient assessed on pullback. Left ventriculogram was performed in DANG projection. The patient tolerated the procedure well and there were no complications associated with the procedure. Vessel Analysis The patient's coronary anatomy is co-dominant. The left main coronary artery is a large size vessel with diffuse calcification noted throughout this vessel and without significant stenosis. The left main bifurcates to the left anterior descending and circumflex. The left anterior descending artery is a medium size vessel with diffuse calcification noted throughout this vessel and with significant stenosis. There is a 90% stenosis in the very distal segment. small calibre vessel less than 1.5 mm diameter The first diagonal branch is a large size vessel with diffuse calcification noted throughout this vessel and without significant stenosis. The second diagonal branch is a medium size vessel with diffuse calcification noted throughout this vessel and without significant stenosis. The circumflex artery is a large size vessel with diffuse calcification noted throughout this vessel and without significant stenosis. The first obtuse marginal branch is a medium size vessel with diffuse calcification noted throughout this vessel and without significant stenosis. The left posterior descending artery is a medium size vessel with diffuse calcification noted throughout this vessel and without significant stenosis. The right coronary artery is a medium size vessel with diffuse calcification noted throughout this vessel and without significant stenosis. There is a 50% stenosis in the distal segment. The right posterior descending artery is a medium size vessel with diffuse calcification noted throughout this vessel and without significant stenosis. The right posterolateral branch is a small size vessel with diffuse calcification noted throughout this vessel and with significant stenosis. There is a 100% stenosis in the mid segment. Very well collateralized from Cx Left Ventricle The left ventricle is borderline in size with low normal contractility. The left ventricular ejection fraction is estimated to be 55%. The left ventricular end diastolic pressure is 6-8 mmHg. post dialysis There was no gradient across the aortic valve upon pullback. Conclusion Small Vessel Disease, Limited bandar Distal LAD and PL branch of RCA, both are less than 1.5 mm in diameter not suitable for PCI Preserved LV Fx. EF-555, EDp 6-8 ( post dialysis). Recommendations Aggressive Medical Therapy Weight Loss Reduction Program ASA and plavix for 4 weeks then baby ASA alone. CC; drs. Garnica/ Felicia/ Asim
[2016-11-19 19:26] VITALS: TEMP 98.6
[2016-11-20] MEDS ORDERED: Darbepoetin Alfa 60 mcg/ml Inj IVP ONE (06:00)
[2016-11-20 06:46] LABS: ADD MANUAL DIFF? NO
[2016-11-20 06:53] LABS: BASO # 0.01 K/mm3 (0.0-2.0); BASO % 0.3 % (0.0-3.0); EOS # 0.1 (0.0-0.7); EOS % 2.3 % (1.5-5.0); GRAN # 1.89 (1.4-6.5); GRAN % 63.5 % (50.0-68.0); HEMATOCRIT 37.7 % (42.0-52.0); LYMPH # 0.6 (1.2-3.4); LYMPH % 19.1 % (22.0-35.0); MEAN CELL VOLUME 99.7 fL (80.0-105.0); MEAN CORPUSCULAR HEMOGLOBIN 33.6 pg (25.0-35.0); MEAN CORPUSCULAR HGB CONC 33.7 g/dl (31.0-37.0); MEAN PLATELET VOLUME 11.2 fl (7.0-11.0); MONO # 0.4 (0.1-0.6); MONO % 14.8 % (1.0-6.0); PLATELET COUNT 137 10^3/uL (120.0-450.0); RED CELL DISTRIBUTION WIDTH 14.2 % (11.5-14.5)
[2016-11-20 07:12] LABS: ALB/GLOB RATIO 1.1 (1.1-1.8); PHOSPHOROUS 5.4 mg/dL (2.5-4.5); POTASSIUM 4.7 mmol/L (3.6-5.0); TOTAL PROTEIN 7.7 g/dL (5.8-8.3)
--- NOTE | 2016-11-20 09:27 | PN ---
DATE: 11/20/2016 REASON FOR CONSULTATION AND FOLLOWUP: Complete heart block, resolved, [id number] myocardial infa rction, is status post cath, small vessel disease. BRIEF CLINICAL HISTORY: A 61-year-old male with history of multiple myeloma, on dialysis more than 1 1 years. Admitted with altered mental status, complete heart block and hyperkalemia, potassium 6.7. The patient started on dopamine, had a dialysis, then heart block completely resolved, remained in s inus tachycardia after weaning off the dopamine, remains in normal sinus. No further episode of arrh ythmia noted. The patient's blood work showed multiple times troponin positive. The patient underwe nt cardiac catheterization that revealed a small vessel disease including distal LAD 90%, less than 1 mm vessels and PLV branch of RCA 100% occluded, small vessels, less than 1.5 mm vessel, medical kayleen tment recommended, preserved LV function. The patient seen in dialysis. Denies any chest pain, shor tness of breath, any palpitation. PHYSICAL EXAMINATION: VITAL SIGNS: Temperature afebrile, heart rate 88, blood pressure 120/69. HEENT: PERRLA. Extraocular muscles intact. NECK: Supple. No carotid bruits. No thyromegaly. CHEST: Clear to auscultation. HEART: S1, S2 regular. ABDOMEN: Soft. EXTREMITIES: Clubbing, cyanosis negative. BLOOD WORKUP: WBC 3, hemoglobin 12. , hematocrit 37.7, platelet count 137. Chemistry shows sodi um 133, potassium 4.0, chloride 93, carbon dioxide 20, anion gap of 16, BUN 29, creatinine 6.1. IMPRESSION: Complete heart block, resolved, hyperkalemia, most likely secondary to hyperkalemia, non -ST-segment myocardial infarction, a small vessel disease distal left anterior descending and posteri or left ventricular branch occluded, major essentially free of significant disease, preserved l eft ventricular function, end-stage renal disease on dialysis, multiple myeloma. Echo shows, dated , mild to moderate tricuspid regurg, right ventricular systolic pressure 52, mild valvular ao rtic stenosis, but on cardiac catheterization, no gradient across aortic valve noted, mild to moderat e mitral regurgitation noted on echo. RECOMMENDATION: Continue aspirin, continue Plavix for 4 weeks. After that, baby aspirin alone. The patient is okay to be discharged from cardiology point of view. No further cardiac workup is planne d or warranted. Discussed with the patient. Thank you, Dr. Garnica, for providing us the opportunity in taking care of the patient. Janusz Correia MD cc: [id number] TT: 11/20/2016 09:26:28 Confirmation # [id number] Dictation # [id number] en
[2016-11-20] MEDS ORDERED: Doxercalciferol 4 mcg/2 ml Inj IV SCH (10:00)
--- NOTE | 2016-11-20 10:06 | PN ---
DATE: 11/19/2016 The patient is a 61-year-old male. The patient was seen and examined on 2016, looks comfortable, lying down, feeling better since dialysis. Heart rate is now improving. No nausea, vomiting, diarrhea. No fever, no chills. Got dialysis today on 11/19. Going for catheterization on 11/20/[address] Correia. PHYSICAL EXAMINATION: VITAL SIGNS: Temperature 98.6, heart rate 80, respiratory rate 20, blood pressure 120/70. HEENT: Head normocephalic, atraumatic. Eyes, PERRLA. Extraocular muscles intact. Conjunctivae clear. Nose patent. Mucous membranes moist. NECK: Supple. No carotid bruit, no JVD, no thyromegaly. CHEST: Bilaterally symmetrical. HEART: S1, S2 positive. LUNGS: Clear to auscultation. ABDOMEN: Soft. Bowel sounds positive. No organomegaly. EXTREMITIES: No edema, no cyanosis. NEUROLOGIC: The patient is awake, alert, moving all 4 extremities. No focal deficits. MEDICATIONS: Ecotrin, cefepime, Nephro vitamins, Plavix, Renagel, Tylenol. LABORATORIES: Hemoglobin 10.6, hematocrit 32.2, white blood cells 3.6, platelets 101.9. Sodium 135, potassium 5.1, creatinine 7.8, hemoglobin A1c 5.3 , AST 33, ALT 27. TSH 0.2. Blood culture, urine culture has no growth. ASSESSMENT AND PLAN: The patient is a 61-year-old male, came with complete heart block with hyperkalemia, got dobutamine, dopamine was given also, received a temporary pacemaker in the field. Got dialysis, got better after that, now has tachycardia. The patient had positive cardiac enzymes. Going for cardiac catheterization by Dr. Correia. Needs close cardiopulmonary monitoring while sleeping as per Dr. Josue. History of multiple myeloma, anemia, leukopenia, thrombocytopenia, actually pancytopenia, renal insufficiency , perihilar edema, probably congestive heart failure, rule out pneumonia. Continue cefepime as per Dr. Reyes. Blood cultures negative for 1 day. is slightly elevated, but patient has chronic renal failure. If cultures continue to be negative and there is improvement in perihilar edema, may discontinue antibiotics. We will follow up. Staci Garnica MD cc: [id number] TT: 11/20/2016 10:05:23 Confirmation # [id number] Dictation # [id number] en MTDD
[2016-11-20] MEDS: Multivitamin Vitamin B Complex (Nephro-Vite) Tab PO SCH (12:01)
--- NOTE | 2016-11-20 15:35 | CP.PCM.PN ---
Subjective - Date & Time of Evaluation Date of Evaluation: 11/20/16 Time of Evaluation: 11:50 - Subjective Subjective: Follow up Nephrology Consultation: Assessment: End stage renal disease on hemodialysis (TTS) via AVF with severe hyperkalemia with complete heart block combined respiratory and metabolic acidosis with lactic acidosis Anemia, Hyperphosphatemia, Secondary hyperparathyroidism hx of multiple myeloma Plan: routine HD today then TTS schedule. Continue with Nephrovite 1 tab/day. PRBC as needed for anemia. On CLAUDIA as Aranesp 25 mcg weekly as outpt, TSAT 22% Ferritin 821 Continue with phos binders home med, added renvela Continue with Hectorol 5 mcg with dialysis. Last PTH level 893 BP tend to be low at end of HD. Patient not on RAAS pilar as low Bp and hyperkalemia HYPERKALEMIA: low K diet. gave Rx for Veltassa once daily to be taken on non HD days. Dialysis consistent diet Further work up/management as per primary team. d/w ICU. cardiology, ID involved Dose meds/antibiotics (if needed) for ESRD status. Avoid fleets enema/magnesium based laxatives. Thanks for allowing me to participate in care of your patient. Will follow patient with you. Please call if any Qs. if pt planned for d/c, then stable from renal perspective. Dr Jackson Frye Office: [phone] Subjective: Noted events overnight. Patients feels okay. Denies chest pain, palpitation, shortness of breath, leg swelling. No urinary complaints. Wants to go home today Physical Examination: General Appearance: Comfortable, in no acute respiratory distress, co- operative. Vitals reviewed and noted as below Lungs: Normal respiratory rate/effort. Breath sounds bilateral equal and clear Heart: Normal rate. s1s2 normal. No rub or gallop. has transcut pacers Extremities: no edema. Neurological: Patient is alert, awake and oriented to person, place and time. No focal deficit. Strength bilateral appropriate and equal Skin: Warm and dry. Normal turgor. No rash. Palpitation: Normal elasticity for age Abdomen: Abdomen is soft. Bowel sounds +. There is no abdominal tenderness, no guarding/rigidity or organomegaly : kidney or bladder not palpable Access: AVF Labs/imaging reviewed. Past medical history, past surgical history, family history, social history, allergy reviewed Objective - Vital Signs/Intake and Output Vital Signs (last 24 hours): Temp Pulse Resp BP Pulse Ox 98.6 F 101 H 15 120/73 97 11/19/16 15:57 11/20/16 11:00 11/20/16 11:00 11/20/16 10:46 11/20/16 05:20 Intake and Output: 11/20/16 11/20/16 06:59 18:59 Intake Total 120 780 Output Total 0 0 Balance 120 780 - Medications Medications: Current Medications Acetaminophen (Tylenol 325mg Tab) 650 mg PO Q6H PRN PRN Reason: Pain, Mild (1-3) Aspirin (Ecotrin) 81 mg PO DAILY [facility] Last Admin: 11/20/16 12:01 Dose: 81 mg Clopidogrel Bisulfate (Plavix) 75 mg PO DAILY [facility] Last Admin: 11/20/16 12:01 Dose: 75 mg Doxercalciferol (Hectorol) 5 mcg IV TTS NELIA Famotidine (Pepcid) 40 mg PO HS [facility] Last Admin: 11/19/16 21:14 Dose: 40 mg Sevelamer HCl (Renagel) 800 mg PO TID [facility] Last Admin: 11/20/16 14:37 Dose: Not Given Vitamin B Complex/Vit C/Folic Acid (Nephro-Thomas) 1 tab PO DAILY [facility] Last Admin: 11/20/16 12:01 Dose: 1 tab - Labs Labs: 11/20/16 06:35 11/20/16 06:35 PT 11.1 Seconds (9.9-11.8) 11/18/16 04:50 INR 1.03 (0.93-1.08) 11/18/16 04:50 APTT 22.8 Seconds (23.7-30.8) L 11/18/16 04:50
[2016-11-20 16:42] VITALS: BP 103/63; PULSE 90; RESP 20; O2SAT 98
--- NOTE | 2016-11-24 18:40 | DS ---
CHIEF COMPLAINT: Altered mental status. HISTORY OF PRESENT ILLNESS: The patient is a 61-year-old male with past medical history of multiple myeloma and renal disease, on hemodialysis, brought to the Emergency Room by ambulance for altered mental status. According to the patient woke up from sleeping yelling and with altered mental status. When the paramedics arrived, he was hypotensive, bradycardia with a heart rate of 30s. The patient was given 1 mg of atropine with minimal affect. The patient was sedated with 17 mg of ketamine and was placed on transcutaneous pacing, had third degree heart block noted. According to family, the patient was due dialysis on that day. We admitted the patient and a consult called with Dr. Correia, Pants Maker and Dr. Josue, Role Player. The patient got dialysis and got better. He was discharged on 11/20/16 with follow up of with primary care physician, restaurant assistant and outreach worker. PAST MEDICAL HISTORY: Renal failure, on hemodialysis; thrombocytopenia, anemia , history of blood transfusion, multiple myeloma, getting chemotherapy, history of shingles, osteoporosis, history of gallbladder disease, cholecystectomy and vascular surgery. FAMILY HISTORY: Father and mother noncontributory. HABITS: Never smoked, no drugs, no ethanol. ALLERGIES: The patient is not allergic to any medications. HOME MEDICATIONS: Reviewed by me. REVIEW OF SYSTEMS: The patient was seen and examined on the bedside, looks comfortable. No nausea, vomiting, or diarrhea. No hematuria or hematochezia. No swelling of the leg. No chest pain, no palpitations. Excited to go home. No fever, no chills. PHYSICAL EXAMINATION: VITAL SIGNS: Temperature 98.6, pulse 90, blood pressure 103/53, respiratory rate 20. HEENT: Head normocephalic, atraumatic. Eyes closed. Nose patent. Mucous membranes are moist. NECK: Supple. No carotid bruit, JVD or thyromegaly. CHEST: Bilaterally symmetrical. HEART: S1, S2 positive. LUNGS: Clear to auscultation. ABDOMEN: Soft. Bowel sounds positive. No organomegaly. EXTREMITIES: No edema, no cyanosis. NEUROLOGIC: The patient is awake, alert, moving all 4 extremities. No focal deficits. LABORATORY DATA: White blood cell 3.0, hemoglobin 12.7, hematocrit 37.7, platelets 137. Sodium 133, potassium 4.7, BUN 29, creatinine 6.1, troponin 0.71. ASSESSMENT AND PLAN: The patient is a 61-year-old male with leukopenia, anemia , renal insufficiency, hyperphosphatemia on hemodialysis, history of multiple myeloma who came with complete heart block with hyperkalemia, got dobutamine, received temporary pacemaker in the field. He got dialysis and got better. Dr. Correia did a catheterization. Had positive cardiac enzymes with anemia, leukopenia, thrombocytopenia pancytopenia, congestive heart failure, rule out pneumonia. Cefepime was given. Blood cultures were negative. Discharged home on 11/20/16 after clearing from the restaurant assistant and will follow up as an outpatient. Staci Garnica MD cc: [id number] TT: 11/24/2016 18:40:10 joel JAIN
== END 2016-11-20 18:04 | disposition home or self-care (01) | DRG 280 ==
LOC: ED 04:40 → ERH 05:45 → CCU 07:14
PROVIDERS: ADMIT Internal Medicine; ATTEND Internal Medicine
PROC: 5A1D60Z (ICD-10-PCS; 2016-11-18)
PROC: 4A023N7 Measurement of Cardiac Sampling and Pressure, Left Heart, Percutaneous Approach (ICD-10-PCS; principal; 2016-11-19)
PROC: B2111ZZ Fluoroscopy of Multiple Coronary Arteries using Low Osmolar Contrast (ICD-10-PCS; 2016-11-19)
PROC: B2151ZZ Fluoroscopy of Left Heart using Low Osmolar Contrast (ICD-10-PCS; 2016-11-19)
DX: I44.2 Atrioventricular block, complete (principal); I21.4 Non-ST elevation (NSTEMI) myocardial infarction; R57.0 Cardiogenic shock; E87.4 Mixed disorder of acid-base balance; C90.00 Multiple myeloma not having achieved remission; N25.81 Secondary hyperparathyroidism of renal origin; N18.6 End stage renal disease; I95.9 Hypotension, unspecified; N39.0 Urinary tract infection, site not specified; I50.9 Heart failure, unspecified; E83.39 Other disorders of phosphorus metabolism; I08.3 Combined rheumatic disorders of mitral, aortic and tricuspid valves; E87.5 Hyperkalemia; D64.9 Anemia, unspecified; I25.10 Atherosclerotic heart disease of native coronary artery without angina pectoris; I45.89 Other specified conduction disorders; M81.0 Age-related osteoporosis without current pathological fracture; R31.9 Hematuria, unspecified; Z86.19 Personal history of other infectious and parasitic diseases; Z90.49 Acquired absence of other specified parts of digestive tract; Z91.11 Patient's noncompliance with dietary regimen; Z95.0 Presence of cardiac pacemaker; Z99.2 Dependence on renal dialysis; R00.1 Bradycardia, unspecified; Z92.21 Personal history of antineoplastic chemotherapy; D69.6 Thrombocytopenia, unspecified; G47.30 Sleep apnea, unspecified; R40.2414 Glasgow coma scale score 13-15, 24 hours or more after hospital admission

== ENCOUNTER 2017-04-20 21:00 | Observation (INO) | payer MEDICARE, OTHER ==
--- NOTE | 2017-04-20 21:28 | ED PDOC ---
Arrival/HPI - General Time Seen by Provider: 04/20/17 21:08 Historian: Patient - History of Present Illness Narrative History of Present Illness (Text): 04/20/17 21:27 Pipe Betancur is a 61 year old male, whose past medical history includes ESRD ( hemodialysis on //Thu) and multiple myeloma, who presents to the Emergency department complaining of shortness of breath since yesterday. Patient also reports a vague epigastric sensation, difficult to describe. Patient denies any fever, chills, chest pain, cough, nausea, vomiting, diarrhea , urinary symptoms, back pain, neck pain, headache, dizziness, or any other complaints. Creative Recruiter: Dr. Adrian Asphalt Plant Operator/Oncologist: Dr. Duarte 04/20/17 21:42 Time/Duration: Other (yesterday) Symptom Onset: Gradual Symptom Course: Unchanged Activities at Onset: Light Context: Home Past Medical History - Provider Review Nursing Documentation Reviewed: Yes - Tetanus Immunization Tetanus Immunization: Unknown - Renal Hx Renal Disorder: Yes Date of Last Dialysis Treatment: 07/24/15 Hx Renal Failure: Yes Other/Comment: NEW AV SHUNT LEFT ARM - Hematological/Oncological Hx Blood Disorders: Yes (THROMBOCYTOPENIA) Hx Blood Transfusions: Yes Hx Blood Transfusion Reaction: No Hx Cancer: Yes (MULTIPLE MYELOMA) Hx Chemotherapy: Yes Hx Shingles: Yes - Musculoskeletal/Rheumatological Hx Musculoskeletal Disorders: Yes Hx Osteoporosis: Yes - Gastrointestinal Hx Gastrointestinal Disorders: Yes Hx Gall Bladder Disease: Yes - Surgical History Hx Arteriovenous Shunt: Yes (FISTULA LEFT ARM) Hx Cholecystectomy: Yes Hx Vascular Surgery: Yes (PERMA CATH INSERTION ) Hx Vascular Access Device: Yes (LOLI CATH RIGHT CHEST) Other/Comment: 03/01/16- DRAINAGE HEMATOMA LEFT ARM - Anesthesia Hx Anesthesia: Yes Hx Anesthesia Reactions: No Hx Malignant Hyperthermia: No - Suicidal Assessment Feels Threatened In Home Enviroment: No Family/Social History - Physician Review Nursing Documentation Reviewed: Yes Family/Social History: Unknown Family HX Smoking Status: Never Smoked Hx Alcohol Use: No Allergies/Home Meds Allergies/Adverse Reactions: Allergies No Known Allergies Allergy (Verified 03/01/15 10:53) Home Medications: Home Meds Medication Instructions Recorded Confirmed Sevelamer HCl [Renagel] 800 mg PO TID 07/23/15 11/18/16 B Complex W-C No.20/Folic Acid 1 tab PO DAILY 11/18/16 11/18/16 [Renal Caps Softgel] Calcium Acetate [Phoslo] 3 cap PO TID 11/18/16 11/18/16 Famotidine [Heartburn Prevention] 10 mg PO DAILY 11/18/16 11/18/16 Ferric Citrate [Auryxia] 420 mg PO TID 11/18/16 11/18/16 Aspirin [Aspirin] 81 mg PO DAILY 11/20/16 11/20/16 Clopidogrel [Plavix] 75 mg PO DAILY 11/20/16 11/20/16 Patiromer Calcium Sorbitex 8.4 gm PO DAILY 11/20/16 11/20/16 [Veltassa] Review of Systems - Physician Review All systems were reviewed & negative as marked: Yes - Review of Systems Constitutional: Normal. absent: Fevers Eyes: Normal ENT: Normal Respiratory: SOB. absent: Cough Cardiovascular: Normal. absent: Chest Pain Gastrointestinal: absent: Diarrhea, Nausea, Vomiting Genitourinary Male: Normal. absent: Dysuria, Frequency, Hematuria, Urinary Output Changes Musculoskeletal: Normal. absent: Back Pain, Neck Pain Skin: Normal. absent: Rash Neurological: Normal. absent: Headache, Dizziness Endocrine: Normal Hemo/Lymphatic: Normal Psychiatric: Normal Physical Exam Vital Signs Reviewed: Yes Vital Signs Temp Pulse Resp BP Pulse Ox 04/20/17 23:54 95 H 20 134/91 H 96 04/20/17 21:43 98.4 F 101 H 20 149/90 100 04/20/17 21:10 20 Temperature: Afebrile Blood Pressure: Normal Pulse: Regular Respiratory Rate: Normal Appearance: Positive for: Well-Appearing, Non-Toxic, Comfortable Pain Distress: None Mental Status: Positive for: Alert and Oriented X 3 - Systems Exam Head: Present: Atraumatic, Normocephalic Pupils: Present: PERRL Extroacular Muscles: Present: EOMI Conjunctiva: Present: Normal Mouth: Present: Moist Mucous Membranes Neck: Present: Normal Range of Motion Respiratory/Chest: Present: Clear to Auscultation, Good Air Exchange. No: Respiratory Distress, Accessory Muscle Use Cardiovascular: Present: Regular Rate and Rhythm, Normal S1, S2. No: Murmurs Abdomen: Present: Normal Bowel Sounds. No: Tenderness, Distention, Peritoneal Signs Back: Present: Normal Inspection Upper Extremity: Present: Normal Inspection. No: Cyanosis, Edema Lower Extremity: Present: Normal Inspection. No: Edema Neurological: Present: GCS=15, CN II-XII Intact, Speech Normal Skin: Present: Warm, Dry, Normal Color. No: Rashes Psychiatric: Present: Alert, Oriented x 3, Normal Insight, Normal Concentration Medical Decision Making ED Course and Treatment: 04/20/17 21:27 Impression: 61 year old male complaining of shortness of breath and vague epigastric sensation, difficult to describe, since yesterday. Differential Diagnosis included but are not limited to: CHF vs. chronic renal failure vs. pneumonia vs. ACS Plan: -- EKG -- Chest X-ray -- Labs, cardiac enzymes, BNP -- Reassess and disposition Prior Visits: Notes and results from previous visits were reviewed. On 11/18/2016, pt was seen in the Emergency department for altered mental status. Pt was admitted to the ICU for further evaluation. Progress Notes: Reviewed EKG, sinus tachycardia at 102 bpm. Occasional PAC. LAD. Non-specific ST /T wave changes. Unchanged from previous EKG on 11/19/2016. 04/20/17 23:20 Reviewed EKG, Chest X-ray shows minimally increased pulmonary vascular markings. 04/21/17 00:[address] Luis Garnica, who is aware and agrees with plan. Accepts pt in to his service. Pt will go to remote telemetry observation for CHF and chest pain. Pt is no acute distress. Discussed results and hospital observation plan with pt , who is aware and verbalizes understanding. - Lab Interpretations Lab Results: 04/20/17 21:59 04/20/17 21:59 Lab Results 04/20/17 21:59: WBC 3.0 L, RBC 2.97 L, Hgb 9.8 L, Hct 29.2 L, MCV 98.3, MCH 33.0 , MCHC 33.6, RDW 12.8, Plt Count 138, MPV 10.2 04/20/17 21:59: Sodium 138, Potassium 4.7, Chloride 95 L, Carbon Dioxide 30, Anion Gap 18, BUN 60 H, Creatinine 9.2 H*, Est GFR ( Amer) 7, Est GFR ( Non-Af Amer) 6, Random Glucose 101, Calcium 9.1, Total Bilirubin 0.5, AST 29, ALT 21, Alkaline Phosphatase 54, Lactate Dehydrogenase 460, Total Creatine Kinase 68, Troponin I 0.05 D, NT-Pro-B Natriuret Pep 52678 H, Total Protein 6.7 , Albumin 3.9, Globulin 2.8, Albumin/Globulin Ratio 1.4 04/20/17 21:59: PT 12.1, INR 1.11 H, APTT 32.2 I have reviewed the lab results: Yes - RAD Interpretation Radiology Orders: 04/20/17 21:31 CHEST PORTABLE [RAD] Stat Ticket Taker [place]: ED Physician - EKG Interpretation Interpreted by ED Physician: Yes Type: 12 lead EKG Comparison: Com.w/previous EKG - Scribe Statement The provider has reviewed the documentation as recorded by the Deandra Haley Provider Scribe Attestation: All medical record entries made by the Scribe were at my direction and personally dictated by me. I have reviewed the chart and agree that the record accurately reflects my personal performance of the history, physical exam, medical decision making, and the department course for this patient. I have also personally directed, reviewed, and agree with the discharge instructions and disposition. Disposition/Present on Arrival - Present on Arrival Any Indicators Present on Arrival: No History of DVT/PE: No History of Uncontrolled Diabetes: No Urinary Catheter: Yes History of Decub. Ulcer: No History Surgical Site Infection Following: None - Disposition Have Diagnosis and Disposition been Completed?: Yes Diagnosis: Chronic renal disease, CHF (congestive heart failure) Disposition: HOSPITALIZED Disposition Time: 23:26 Patient Plan: Observation Patient Problems: Current Active Problems Problem Status Onset CHF (congestive heart failure) Acute Chronic renal disease Acute Condition: STABLE
[2017-04-20 21:43] VITALS: BMI 27.8
[2017-04-20 21:45] VITALS: RESP 20
[2017-04-20 22:11] LABS: HEMATOCRIT 29.2 % (42.0-52.0); MEAN CELL VOLUME 98.3 fl (80.0-105.0); MEAN CORPUSCULAR HGB CONC 33.6 g/dl (31.0-37.0); MEAN PLATELET VOLUME 10.2 fl (7.0-11.0); RED CELL DISTRIBUTION WIDTH 12.8 % (11.5-14.5)
[2017-04-20 22:29] LABS: INR 1.11 (0.93-1.08); PARTIAL THROMBOPLASTIN TIME 32.2 Seconds (25.1-36.5)
[2017-04-20 22:36] LABS: ALB/GLOB RATIO 1.4 (1.1-1.8); BILIRUBIN,TOTAL 0.5 mg/dL (0.2-1.3); CALCIUM 9.1 mg/dL (8.4-10.5); POTASSIUM 4.7 mmol/L (3.6-5.0); TOTAL PROTEIN 6.7 g/dL (5.8-8.3)
[2017-04-20 22:49] LABS: TROPONIN I 0.05 ng/mL
[2017-04-21 06:51] LABS: ALB/GLOB RATIO 1.5 (1.1-1.8); BILIRUBIN,TOTAL 0.8 mg/dL (0.2-1.3); CALCIUM 9.2 mg/dL (8.4-10.5); PHOSPHOROUS 3.4 mg/dL (2.5-4.5); POTASSIUM 4.4 mmol/L (3.6-5.0); TOTAL PROTEIN 7.2 g/dL (5.8-8.3)
[2017-04-21 06:54] LABS: EOS # 0.1 (0.0-0.7); EOS % 2.2 % (1.5-5.0); GRAN # 2.07 (1.4-6.5); GRAN % 75.3 % (50.0-68.0); LYMPH # 0.4 (1.2-3.4); MEAN CELL VOLUME 96.2 fl (80.0-105.0); MEAN CORPUSCULAR HEMOGLOBIN 32.7 pg (25.0-35.0); MEAN PLATELET VOLUME 10.4 fl (7.0-11.0); MONO # 0.2 (0.1-0.6); MONO % 6.5 % (1.0-6.0)
[2017-04-21 07:05] LABS: WHITE BLOOD COUNT 2.8 10^3/ul (4.5-11.0)
[2017-04-21] MEDS ORDERED: Darbepoetin Alfa 25 mcg/ml Inj IVP ONE (08:19)
--- NOTE | 2017-04-21 08:35 | RAD ---
HISTORY: sob COMPARISON: Portable chest 11/18/2016. FINDINGS: Right-sided life port catheter unchanged in position. LUNGS: Limited airspace disease may be obscuring left hemidiaphragm. Clinically correlate here. Right chest remains clear. PLEURA: No significant pleural effusion identified, no pneumothorax apparent. CARDIOVASCULAR: Normal. OSSEOUS STRUCTURES: No significant abnormalities. VISUALIZED UPPER ABDOMEN: Normal. OTHER FINDINGS: None. IMPRESSION: Borderline left basilar airspace disease silhouetting left hemidiaphragm. No additional potential acute or subacute findings.
--- NOTE | 2017-04-21 10:10 | CARD ---
APPROVED REPORT EKG Measurement Heart [id number] <Conclusion> Sinus tachycardia with 1 APC LAHB NSSTW changes No change
--- NOTE | 2017-04-21 15:15 | CP.PCM.CON ---
History of Present Illness - History of Present Illness History of Present Illness: 61 year old male, whose past medical history includes ESRD (hemodialysis on //Thu) and multiple myeloma, who presents to the Emergency department complaining of shortness of breath since yesterday. no missed hd sessions. he was dialyed early today and now his sob has improved. Review of Systems - Review of Systems All systems: reviewed and no additional remarkable complaints except Past Patient History - Infectious Disease Hx of Infectious Diseases: None - Tetanus Immunizations Tetanus Immunization: Unknown - Past Medical History & Family History Past Medical History?: Yes - Past Social History Smoking Status: Never Smoked - RENAL Hx Chronic Kidney Disease: Yes Date of Last Dialysis Treatment: 07/24/15 Hx Renal Failure: Yes Other/Comment: NEW AV SHUNT LEFT ARM - HEMATOLOGICAL/ONCOLOGICAL Hx Blood Disorders: Yes (THROMBOCYTOPENIA) Hx Blood Transfusions: Yes Hx Blood Transfusion Reaction: No Hx Cancer: Yes (MULTIPLE MYELOMA) Hx Chemotherapy: Yes Hx Shingles: Yes - MUSCULOSKELETAL/RHEUMATOLOGICAL Hx Musculoskeletal Disorders: Yes Hx Osteoporosis: Yes - GASTROINTESTINAL Hx Gastrointestinal Disorders: Yes Hx Gall Bladder Disease: Yes - SURGICAL HISTORY Hx Arteriovenous Shunt: Yes (FISTULA LEFT ARM) Hx Cholecystectomy: Yes Hx Vascular Surgery: Yes (PERMA CATH INSERTION ) Hx Vascular Access Device: Yes (LOLI CATH RIGHT CHEST) Other/Comment: 03/01/16- DRAINAGE HEMATOMA LEFT ARM - ANESTHESIA Hx Anesthesia: Yes Hx Anesthesia Reactions: No Hx Malignant Hyperthermia: No Meds Allergies/Adverse Reactions: Allergies Allergy/AdvReac Type Severity Reaction Status Date / Time No Known Allergies Allergy Verified 03/01/15 10:53 - Medications Medications: Current Medications Aspirin (Aspirin Chewable) 81 mg PO DAILY [facility] Last Admin: 04/21/17 11:45 Dose: 81 mg Calcium Acetate (Phoslo) 2,001 mg PO TID [facility] Last Admin: 04/21/17 13:12 Dose: 2,001 mg Clopidogrel Bisulfate (Plavix) 75 mg PO DAILY [facility] Last Admin: 04/21/17 11:45 Dose: 75 mg Darbepoetin John (Aranesp) 25 mcg IVP TH [facility] Doxercalciferol (Hectorol) 3 mcg IVP TTS [facility] Famotidine (Pepcid) 10 mg PO DAILY [facility] Ferrous Sulfate (Feosol) 324 mg PO TID [facility] Last Admin: 04/21/17 13:12 Dose: 324 mg Heparin Sodium (Porcine) (Heparin) 2,000 units IVP TTS [facility] Sevelamer HCl (Renagel) 800 mg PO TID [facility] Last Admin: 04/21/17 13:12 Dose: 800 mg Physical Exam - Constitutional Appears: Non-toxic, No Acute Distress - Head Exam Head Exam: NORMAL INSPECTION - Eye Exam Eye Exam: Normal appearance - ENT Exam ENT Exam: Mucous Membranes Moist - Respiratory Exam Respiratory Exam: NORMAL BREATHING PATTERN - Cardiovascular Exam Cardiovascular Exam: +S1, +S2 - GI/Abdominal Exam GI & Abdominal Exam: Soft - Extremities Exam Extremities exam: Positive for: normal inspection - Neurological Exam Neurological exam: Alert, Oriented x3 - Psychiatric Exam Psychiatric exam: Normal Mood - Skin Skin Exam: Dry, Warm Results - Vital Signs Recent Vital Signs: Last Vital Signs Temp 98 F 04/21/17 08:05 Pulse 100 H 04/21/17 08:05 Resp 20 04/21/17 08:05 BP 149/100 H 04/21/17 08:05 Pulse Ox 96 04/21/17 08:05 - Labs Result Diagrams: 04/21/17 06:00 04/21/17 06:00 Labs: Laboratory Results - last 24 hr 04/21/17 04/21/17 06:00 06:00 WBC 2.8 L* RBC 3.12 L Hgb 10.2 L Hct 30.0 L MCV 96.2 MCH 32.7 MCHC 34.0 RDW 13.0 Plt Count 140 MPV 10.4 Gran % 75.3 H Lymph % (Auto) 16.0 L [place] % (Auto) 6.5 H Eos % (Auto) 2.2 Baso % (Auto) 0.0 Gran # 2.07 Lymph # 0.4 L [place] # 0.2 Eos # 0.1 Baso # 0.00 Sodium 139 Potassium 4.4 Chloride 97 Carbon Dioxide 29 Anion Gap 17 BUN 48 H Creatinine 7.7 H* Est GFR ( Amer) 9 Est GFR (Non-Af Amer) 7 Random Glucose 102 Calcium 9.2 Phosphorus 3.4 Total Bilirubin 0.8 AST 25 ALT 31 Alkaline Phosphatase 55 Total Protein 7.2 Albumin 4.3 Globulin 2.9 Albumin/Globulin Ratio 1.5 Assessment & Plan - Assessment and Plan (Free Text) Plan: esrd/anemia/chf/htn/sec hyperpth hd continue per schedule lytes ok anemia: epo with hd sec hyperpth: continue binders chf improved post hd
[2017-04-21 16:23] VITALS: BP 124/89; TEMP 99; O2SAT 98
[2017-04-21 18:38] VITALS: PULSE 90
--- NOTE | 2017-04-22 07:26 | HP ---
CHIEF COMPLAINT: Shortness of breath. HISTORY OF PRESENT ILLNESS: Mr. Pipe Beatncur is a 61-year-old male with past medical history of end-stage renal disease, on hemodialysis on Thursday, and Thursday, had multiple myeloma, came to the Emergency Department complaining of shortness of breath since yesterday. Patient reports to have a vague epigastric sensation, difficult to describe. The patient denies any fever, chills, chest pain, cough, nausea, vomiting, diarrhea, urinary symptoms. No fever, no chills. PAST MEDICAL HISTORY: Renal insufficiency, on hemodialysis; new AV shunt, left arm; multiple myeloma; thrombocytopenia; status post chemotherapy; history of shingles; GERD; dyspepsia; gallbladder disease. FAMILY HISTORY: Father and mother noncontributory. HABITS: Never smoked. No drug or ethanol. ALLERGIES: THE PATIENT IS NOT ALLERGIC TO ANY MEDICATION. HOME MEDICATIONS: Renagel, folic acid, PhosLo, famotidine, ferric citrate, aztreonam, Plavix. REVIEW OF SYSTEMS: The patient seen and examined at the bedside. Looking comfortable. According to him, no shortness of breath. No feelings in the epigastrium. No nausea or vomiting. No fever, no chills. No headache, no dizziness. Feeling better in general. Wants to go home. He is anxious to go home. PHYSICAL EXAMINATION: VITAL SIGNS: Temperature is 99, bp 120/80 , respiratory rate 20. HEENT: Head is normocephalic and atraumatic. Eyes: PERRLA. Extraocular muscles intact. Conjunctivae clear. Nose is patent. Mucous membranes moist.. NECK: Supple. No carotid bruit. No JVD or thyromegaly. CHEST: Bilaterally symmetrical. HEART: S1 and S2 positive. LUNGS: Clear to auscultation. ABDOMEN: Soft. Bowel sounds present. No organomegaly. EXTREMITIES: No edema, no cyanosis. NEUROLOGIC: The patient is awake and alert. Moving all four extremities. No focal deficits. LABORATORY DATA: White blood cells 2.8, hemoglobin 10.2, hematocrit 30.0, platelets of 140. Sodium 139, potassium 4.4, BUN 48, creatinine 7.7. On admission, it was 9.2. AST 25, ALT 31. ASSESSMENT AND PLAN: Mr. Pipe Betancur is a 61-year-old male with renal insufficiency, on hemodialysis; leukopenia; anemia, was admitted for shortness of breath. After getting dialysis, shortness of breath is gone. Feeling in the epigastrium improved. History of thrombocytopenia, is under the care of tune up mechanic and oncologist. History of congestive heart failure, hypertension, secondary hyperparathyroidism. Continue with the dialysis as per schedule. Lytes are okay. Patient is getting EPO with dialysis for anemia. Hyperparathyroidism, continue binders. Congestive heart failure improved post hemodialysis. Insisting to go home. Discharged home with the situation and asked to follow up in my office, his tune up mechanic and oncologist. Continue home medications. Staci Garnica MD MTDD
[2017-04-22] MEDS ORDERED: Darbepoetin Alfa 25 mcg/ml Inj IVP SCH (08:33)
[2017-04-22] MEDS ORDERED: Doxercalciferol 4 mcg/2 ml Inj IVP SCH (10:00)
[2017-04-22] MEDS ORDERED: Prostat 15 g packet GT SCH (10:00)
--- NOTE | 2017-04-23 06:34 | DS ---
The patient is a 61 years old male. I saw the patient only once and did history and physical, and the patient was cleared by the steamblaster and by pad machine feeder. Actually, he came with shortness of breath and because he needed dialysis. After dialysis, he felt better and he was very anxious to go home. He promised to follow up with the primary care physician, pad machine feeder and steamblaster as outpatient; so we discharged on 04/21/2017. For more details, see my history and physical of 04/21/2017. Staci Garnica MD
[2017-04-23] MEDS ORDERED: Prostat 15 g packet GT SCH (10:00)
[2017-04-23] MEDS ORDERED: Doxercalciferol 4 mcg/2 ml Inj IVP SCH (10:00)
[2017-04-23] MEDS ORDERED: Darbepoetin Alfa 25 mcg/ml Inj IVP SCH (12:18)
== END 2017-04-21 18:48 | disposition home or self-care (01) ==
LOC: ED 21:00 → ERH 23:28 → 3RNO 04-21 01:34
PROVIDERS: ADMIT Internal Medicine; ATTEND Internal Medicine
DX: I13.2 Hypertensive heart and chronic kidney disease with heart failure and with stage 5 chronic kidney disease, or end stage renal disease (principal); I50.9 Heart failure, unspecified; C90.00 Multiple myeloma not having achieved remission; D64.9 Anemia, unspecified; D72.819 Decreased white blood cell count, unspecified; K21.9 Gastro-esophageal reflux disease without esophagitis; M81.0 Age-related osteoporosis without current pathological fracture; N18.6 End stage renal disease; N25.81 Secondary hyperparathyroidism of renal origin; Z79.02 Long term (current) use of antithrombotics/antiplatelets; Z79.82 Long term (current) use of aspirin; Z86.19 Personal history of other infectious and parasitic diseases; Z90.49 Acquired absence of other specified parts of digestive tract; Z92.21 Personal history of antineoplastic chemotherapy; Z99.2 Dependence on renal dialysis; D69.6 Thrombocytopenia, unspecified; R40.2412 Glasgow coma scale score 13-15, at arrival to emergency department; R00.0 Tachycardia, unspecified
CPT/HCPCS: 36415; 71010; 80053; 82550; 83615; 83880; 84100; 84484; 85025; 85027; 85610; 85730; 93005; 99285; G0378; J1270; J1644

== ENCOUNTER 2018-03-08 21:18 | Inpatient (IN) | payer MEDICARE, OTHER ==
--- NOTE | 2018-03-08 21:42 | ED PDOC ---
Arrival/HPI - General Chief Complaint: Weakness/Neurological Deficit Time Seen by Provider: 03/08/18 21:33 Historian: Patient - History of Present Illness Narrative History of Present Illness (Text): 03/08/18 21:42 Pipe Betancur is a 62 year old male, whose past medical history includes ESRD on hemodialysis, multiple myeloma s/p chemotherapy, thrombocytopenia, GERD, and shingles, who presents to the Emergency department complaining of generalized weakness. Patient states he was at home tonight when he began experiencing generalized weakness and dizziness 2 hours prior to arrival. Patient notes dizziness is worsened with any movements. On arrival to Emergency department, patient is noted to be bradycardic in the 30s. Patient denies any chest pain, shortness of breath, headache, vision changes, or any other complaints. Corner Cutter Machine Operator: Dr. Frye, Dr. Adrian Time/Duration: 1-3 hours Symptom Onset: Gradual Symptom Course: Worsening Activities at Onset: Light Context: Home Past Medical History - Provider Review Nursing Documentation Reviewed: Yes - Infectious Disease Hx of Infectious Diseases: None - Tetanus Immunization Tetanus Immunization: Unknown - Renal Hx Renal Disorder: Yes Hx Dialysis: Yes Date of Last Dialysis Treatment: 03/06/18 Hx Renal Failure: Yes Other/Comment: NEW AV SHUNT LEFT ARM - Hematological/Oncological Hx Blood Disorders: Yes (THROMBOCYTOPENIA) Hx Blood Transfusions: Yes Hx Blood Transfusion Reaction: No Hx Cancer: Yes (MULTIPLE MYELOMA) Hx Chemotherapy: Yes Hx Shingles: Yes - Musculoskeletal/Rheumatological Hx Musculoskeletal Disorders: Yes Hx Osteoporosis: Yes - Gastrointestinal Hx Gastrointestinal Disorders: Yes Hx Gall Bladder Disease: Yes - Psychiatric Hx Substance Use: No - Surgical History Hx Arteriovenous Shunt: Yes (FISTULA LEFT ARM) Hx Cholecystectomy: Yes Hx Vascular Surgery: Yes (PERMA CATH INSERTION ) Hx Vascular Access Device: Yes (LOLI CATH RIGHT CHEST) Other/Comment: 03/01/16- DRAINAGE HEMATOMA LEFT ARM - Anesthesia Hx Anesthesia: Yes Hx Anesthesia Reactions: No Hx Malignant Hyperthermia: No - Suicidal Assessment Feels Threatened In Home Enviroment: No Family/Social History - Physician Review Nursing Documentation Reviewed: Yes Family/Social History: Unknown Family HX Smoking Status: Never Smoked Hx Alcohol Use: No Hx Substance Use: No Allergies/Home Meds Allergies/Adverse Reactions: Allergies No Known Allergies Allergy (Verified 03/01/15 10:53) Home Medications: Home Meds Medication Instructions Recorded Confirmed Sevelamer HCl [Renagel] 800 mg PO TID 07/23/15 11/18/16 B Complex W-C No.20/Folic Acid 1 tab PO DAILY 11/18/16 11/18/16 [Renal Caps Softgel] Calcium Acetate [Phoslo] 3 cap PO TID 11/18/16 11/18/16 Famotidine [Heartburn Prevention] 10 mg PO DAILY 11/18/16 11/18/16 Ferric Citrate [Auryxia] 420 mg PO TID 11/18/16 11/18/16 Aspirin 81 mg PO DAILY 11/20/16 11/20/16 Clopidogrel [Plavix] 75 mg PO DAILY 11/20/16 11/20/16 Patiromer Calcium Sorbitex 8.4 gm PO DAILY 11/20/16 11/20/16 [Veltassa] Review of Systems - Physician Review All systems were reviewed & negative as marked: Yes - Review of Systems Constitutional: Other (+generalized weakness). absent: Fevers Eyes: Normal ENT: Normal Respiratory: Normal. absent: SOB, Cough Cardiovascular: Normal. absent: Chest Pain Gastrointestinal: Normal. absent: Abdominal Pain, Diarrhea, Nausea, Vomiting Musculoskeletal: Normal. absent: Back Pain, Neck Pain Skin: Normal. absent: Rash Neurological: Dizziness. absent: Headache Endocrine: Normal Hemo/Lymphatic: Normal Psychiatric: Normal Physical Exam Vital Signs Reviewed: Yes Vital Signs Temp Pulse Resp BP Pulse Ox 03/09/18 00:27 115 H 25 H 120/71 100 03/08/18 23:09 93 H 14 133/84 98 03/08/18 22:38 70 22 113/79 92 L 03/08/18 21:35 98.0 F 35 L 18 89/44 L 100 Temperature: Afebrile Blood Pressure: Hypotensive Pulse: Bradycardic Respiratory Rate: Normal Appearance: Positive for: Well-Appearing, Non-Toxic, Comfortable Pain Distress: None Mental Status: Positive for: Alert and Oriented X 3 Finger Stick Blood Glucose: 168 - Systems Exam Head: Present: Atraumatic, Normocephalic Pupils: Present: PERRL Extroacular Muscles: Present: EOMI Conjunctiva: Present: Normal Mouth: Present: Moist Mucous Membranes Neck: Present: Normal Range of Motion Respiratory/Chest: Present: Clear to Auscultation, Good Air Exchange. No: Respiratory Distress, Accessory Muscle Use Cardiovascular: Present: Normal S1, S2, Bradycardic. No: Murmurs Abdomen: No: Tenderness, Distention, Peritoneal Signs Back: Present: Normal Inspection. No: CVA Tenderness, Midline Tenderness, Paraspinal Tenderness Upper Extremity: Present: Normal Inspection. No: Cyanosis, Edema Lower Extremity: Present: Normal Inspection. No: Edema Neurological: Present: GCS=15, CN II-XII Intact, Speech Normal, Motor Func Grossly Intact, Normal Sensory Function, Normal Cerebellar Funct, Memory Normal Skin: Present: Warm, Dry, Normal Color. No: Rashes Psychiatric: Present: Alert, Oriented x 3, Normal Insight, Normal Concentration Medical Decision Making ED Course and Treatment: 03/08/18 21:42 Impression: 62 year old male brought in for generalized weakness and dizziness 2 hours prior to arrival. Plan: -- EKG -- Chest X-Ray -- Labs, cardiac enzymes -- IV fluids -- Atropine -- Reassess and disposition Prior Visits: Notes and results from previous visits were reviewed. Progress Notes: Pt seen on arrival, noted to be bradycardic in 30s. Atropine ordered. 03/08/18 21:30 Reviewed EKG, a flutter with variable block at [address] bpm[address] Non-specific ST/T wave changes. 03/08/18 22:08 Pt remains bradycardic after Atropine. Case discussed with Dr. Correia, who recommends IV Dopamine at this time. Will check electrolytes when results return to determine if potassium is elevated. Dopamine drip ordered. 03/08/18 22:17 Labs reviewed, potassium: 6.2. Meds ordered. 03/08/18 22:20 Case discussed with medical territory manager acquisitions librarian, who is aware and agrees with plan. 03/08/18 22:[address] De La Cruz, stockbroker, who states pt can be admitted to the ICU 03/08/18 22:45 Repeat EKG reviewed, NSR at 71 bpm. 1st degree AV block. LAD. RBBB. Non- specific ST/T wave changes.This following above treatment 03/08/18 23:[address] Garnica, who is aware and agrees with plan. Accepts pt in to her service. Pt will be admitted to ICU for symptomatic bradycardia, hyperkalemia, and ESRD. Requests Dr. Adrian on consult. 03/09/18 00:07 Chest X-ray reviewed, shows no acute processes. - Critical Care Critical Care Minutes: 45 minutes - Lab Interpretations Lab Results: 03/08/18 21:23 03/08/18 21:23 Lab Results 03/08/18 22:31: POC Glucose (mg/dL) 154 H 03/08/18 21:23: Free T4 1.54, TSH 3rd Generation 1.65 03/08/18 21:23: WBC 3.0 L, RBC 3.33 L, Hgb 11.3 L, Hct 34.2 L, MCV 102.7 D, MCH 33.9, MCHC 33.0, RDW 15.9 H, Plt Count 135, MPV 10.5 03/08/18 21:23: Sodium 136, Potassium 6.2 H* D, Chloride 94 L, Carbon Dioxide 27 , Anion Gap 21 H, BUN 61 H, Creatinine 7.1 H, Est GFR ( Amer) 10, Est GFR (Non-Af Amer) 8, Random Glucose 136 H, Calcium 8.9, Total Bilirubin 0.8, AST 42, ALT 23, Alkaline Phosphatase 118, Lactate Dehydrogenase 471, Total Creatine Kinase 63, Troponin I 0.02 D, Total Protein 7.6, Albumin 4.2, Globulin 3.4, Albumin/Globulin Ratio 1.2 03/08/18 21:23: PT 13.8 H, INR 1.21, APTT 29.1 I have reviewed the lab results: Yes - RAD Interpretation Radiology Orders: 03/08/18 21:35 CHEST PORTABLE [RAD] [employer] Architect: ED Physician - EKG Interpretation Interpreted by ED Physician: Yes Type: 12 lead EKG - Medication Orders Current Medication Orders: Aspirin (Aspirin Chewable) 81 mg PO DAILY [facility] Last Admin: 03/10/18 10:13 Dose: 81 mg Cinacalcet (Sensipar) 90 mg PO DAILY N[facility] Last Admin: 03/10/18 10:13 Dose: 90 mg Famotidine (Pepcid) 20 mg PO HS [facility] Last Admin: 03/09/18 22:08 Dose: 20 mg Ferric Citrate [ Auryxia] 630 Mg ( Home Med) 630 mg PO AC [facility] Last Admin: 03/10/18 16:38 Dose: 630 mg Vitamin B Complex/Vit C/Folic Acid (Nephro-Thomas) 1 tab PO 0800 NELIA Last Admin: 03/10/18 08:08 Dose: 1 tab Discontinued Medications Albuterol Sulfate (Albuterol 0.5% Inhal Pilar (2.5 Mg/0.5 Ml) Ud) 10 mg IH ONCE STA Stop: 03/08/18 22:19 Last Admin: 03/08/18 22:35 Dose: 10 mg Alprazolam (Xanax) 0.25 mg PO STAT STA PRN Reason: Protocol Stop: 03/08/18 23:24 Last Admin: 03/08/18 23:36 Dose: 0.25 mg Re-Assess: Reassess Psych Meds Document 03/09/18 00:36 JBO (Rec: 03/09/18 08:18 JBO [facility] [id number]) Reassess Psych Med Effective Alprazolam (Xanax) 0.25 mg PO ONCE ONE PRN Reason: Protocol Stop: 03/09/18 08:20 Last Admin: 03/09/18 08:47 Dose: 0.25 mg Behavioural Document 03/09/18 08:47 RM (Rec: 03/09/18 08:47 RM [id number]) Maintenance Maintenance Dose Yes Nonmedicinal Nonmedicinal Interventions Redirect Behavior Behavior for Medication: Anxiety Re-Assess: Reassess Psych Meds Document 03/09/18 09:47 RM (Rec: 03/09/18 17:01 RM [id number]) Reassess Psych Med Ineffective-LIP notifed Alprazolam (Xanax) 0.25 mg PO ONCE ONE PRN Reason: Protocol Stop: 03/09/18 09:28 Last Admin: 03/09/18 10:31 Dose: Atropine Sulfate (Atropine) 1 mg IVP STAT STA Stop: 03/08/18 21:44 Last Admin: 03/08/18 21:47 Dose: 1 mg IVP Administration Document 03/08/18 21:47 CNR (Rec: 03/08/18 21:47 CNR [id number]) Charges for Administration # of IVP Administrations 1 Atropine Sulfate (Atropine) 1 mg IVP STAT STA Stop: 03/09/18 06:57 Last Admin: 03/09/18 07:03 Dose: 1 mg IVP Administration Document 03/09/18 07:03 JBO (Rec: 03/09/18 07:03 JBO [id number]) Charges for Administration # of IVP Administrations 1 Dextrose (Dextrose 50% Inj) 50 ml IVP ONCE ONE Stop: 03/08/18 22:18 Last Admin: 03/08/18 22:34 Dose: 50 ml IVP Administration Document 03/08/18 22:34 CNR (Rec: 03/08/18 22:34 CNR [id number]) Charges for Administration # of IVP Administrations 1 Famotidine (Pepcid) 40 mg PO HS NELIA Sodium Chloride (Sodium Chloride 0.9%) 250 mls @ 250 mls/hr IV .Q1H STA Stop: 03/08/18 22:46 Last Admin: 03/08/18 22:12 Dose: 250 mls/hr eMAR Start Stop Document 03/08/18 22:12 CNR (Rec: 03/08/18 22:12 CNR [id number]) Intravenous Solution Start Date 03/08/18 Start Time 22:12 Dopamine HCl/Dextrose (Dopamine 400mg/250ml D5w) 400 mg in 250 mls @ 13.948 mls /hr IV .[id number] PRN; Protocol; 5 MCG/KG/MIN PRN Reason: TITRATE PER MD ORDER Last Titration: 03/09/18 09:00 Dose: 2.5 mcg/kg/min, 6.974 mls/hr Titration Intervention Document 03/09/18 09:00 RM (Rec: 03/09/18 10:12 RM [id number]) Titration Intake Titration Intake 15 Cumulative Intake 50 Cumulative Intake (Rx) 50 Waste Amount 0 Container Volume 200 Titration Dosing Titration Dose 2.5 IV Rate 6.974 Intake/Decrease Decreased Cumulative Dose 80 Calcium Gluconate 1,000 mg/ (Sodium Chloride) 110 mls @ 110 mls/hr IVPB ONCE ONE Stop: 03/09/18 11:15 Last Admin: 03/09/18 14:02 Dose: 110 mls/hr eMAR Start Stop Document 03/09/18 14:02 RM (Rec: 03/09/18 14:02 RM [id number]) Intravenous Solution Start Date 03/09/18 Start Time 13:50 diltiaZEM IVPB 100mg in NS (Cardizem 100mg In Ns) 100 mls @ 5 mls/hr IV .Q20H PRN; Protocol; 5 MG/HR PRN Reason: TITRATE PER MD ORDER Last Titration: 03/10/18 01:30 Dose: 0 mg/hr, 0 mls/hr MAR Pulse Rate Document 03/10/18 01:30 JBO (Rec: 03/10/18 06:53 [id number]) Pulse Rate Pulse Rate (60-90) 90 Titration Intervention Document 03/10/18 01:30 JBO (Rec: 03/10/18 06:53 [id number]) Titration Intake Titration Intake 0 Cumulative Intake 10 Cumulative Intake (Rx) 110 Waste Amount 0 Container Volume 90 Titration Dosing Titration Dose 0 IV Rate 0 Intake/Decrease Paused Cumulative Dose 110 Insulin Human Regular (Humulin R) 10 units SC STAT STA Stop: 03/08/18 22:18 Last Admin: 03/08/18 22:34 Dose: 10 u Subcutaneous Administrations Document 03/08/18 22:34 CNR (Rec: 03/08/18 22:35 CNR [id number]) Charges for Administration # of Subcutaneous Administrations 1 Lorazepam (Ativan) 0.5 mg IVP ONCE ONE PRN Reason: Protocol Stop: 03/09/18 10:02 Last Admin: 03/09/18 10:09 Dose: 0.5 mg IVP Administration Document 03/09/18 10:09 RM (Rec: 03/09/18 10:09 [id number] Charges for Administration # of IVP Administrations 1 Behavioural Document 03/09/18 10:09 RM (Rec: 03/09/18 10:09 [id number]) Maintenance Maintenance Dose Yes Nonmedicinal Nonmedicinal Interventions Redirect Behavior Behavior for Medication: Anxiety Re-Assess: Reassess Psych Meds Document 03/09/18 10:39 RM (Rec: 03/09/18 14:07 RM [id number]) Reassess Psych Med Ineffective-LIP notifed Non-Formulary Medication (Ferric Citrate [Auryxia]) 420 mg PO TID NELIA Non-Formulary Medication (Ferric Citrate [Auryxia]) 210 mg PO TID NELIA Sodium Polystyrene Sulfonate (Kayexalate Susp) 30 gm PO ONCE ONE Stop: 03/08/18 22:18 Last Admin: 03/08/18 22:34 Dose: 30 gm - Scribe Statement The provider has reviewed the documentation as recorded by the Deandra Haley Provider Miguelibe Attestation: All medical record entries made by the Scribe were at my direction and personally dictated by me. I have reviewed the chart and agree that the record accurately reflects my personal performance of the history, physical exam, medical decision making, and the department course for this patient. I have also personally directed, reviewed, and agree with the discharge instructions and disposition. Disposition/Present on Arrival - Present on Arrival Any Indicators Present on Arrival: No History of DVT/PE: No History of Uncontrolled Diabetes: No Urinary Catheter: Yes History of Decub. Ulcer: No History Surgical Site Infection Following: None - Disposition Have Diagnosis and Disposition been Completed?: Yes Diagnosis: Hyperkalemia, Chronic renal disease, Hypotension, Symptomatic bradycardia Disposition: HOSPITALIZED Disposition Time: 23:11 Patient Plan: ICU Patient Problems: Current Active Problems Problem Status Onset Chronic renal disease Acute Hyperkalemia Acute Hypotension Acute Symptomatic bradycardia Acute Condition: GUARDED
[2018-03-08] MEDS ORDERED: Sodium Chloride 0.9% 250 ML IV STA (21:47)
[2018-03-08 21:55] LABS: HEMOGLOBIN 11.3 g/dL (14.0-18.0); MEAN CELL VOLUME 102.7 fl (80.0-105.0); MEAN CORPUSCULAR HEMOGLOBIN 33.9 pg (25.0-35.0); MEAN PLATELET VOLUME 10.5 fl (7.0-11.0); RBC 3.33 10^6/uL (3.5-6.1); RED CELL DISTRIBUTION WIDTH 15.9 % (11.5-14.5)
[2018-03-08 22:02] LABS: INR 1.21; PARTIAL THROMBOPLASTIN TIME 29.1 Seconds (25.1-36.5); PROTHROMBIN TIME 13.8 SECONDS (9.4-12.5)
[2018-03-08] MEDS ORDERED: DOPamine 400mg/250ml D5W 400 MG/250 ML BAG IV ONE (22:10)
[2018-03-08] MEDS: DOPamine 400mg/250ml D5W 400 MG/250 ML BAG IV PRN ×2 (22:12→23:29)
[2018-03-08 22:13] LABS: ALB/GLOB RATIO 1.2 (1.1-1.8); ALBUMIN 4.2 g/dL (3.0-4.8); CALCIUM 8.9 mg/dL (8.4-10.5)
[2018-03-08 22:16] LABS: TROPONIN I 0.02 ng/mL
[2018-03-08] MEDS ORDERED: Insulin Regular 1 UNITS/0.01 ML ML SC STA (22:17)
[2018-03-08] MEDS ORDERED: Dextrose 50% SYRINGE Inj (50 ml) IVP ONE (22:17)
[2018-03-08] MEDS ORDERED: Sod Polystyrene Sulf 15 gm/60 ml Susp PO ONE (22:17)
[2018-03-08] MEDS ORDERED: Albuterol 0.5% Inhal Sol (2.5 mg/0.5 ml) UD IH STA (22:18)
--- NOTE | 2018-03-09 00:17 | CP.PCM.CON ---
History of Present Illness - History of Present Illness History of Present Illness: Adeline Mishra, PGY-1 Consult Note for ICU This is a 62 year old male with PMH of multipl myeloma s/p chemo 10 years ago, GERD and ESRD on HD //Thu presenting to the ED for fatigue and restlessness that began at 4 pm today. Patient states that he had similar symptoms a few months ago and was treated for hyperkalemia at that time with resolution of symptoms. His last hemodialysis was on Thursday and he is scheduled for hemodialysis tomorrow. At this time, he denies CP, SOB, headaches , abdominal pain, urinary complaints, back pain, fevers, chills, nausea, vomiting, swelling, recent change in lifestyle, recent sickness, recent travel and sick contacts at home. 12 point ROS noted here, otherwise unremarkable. In the ED, patient noted to be bradycardic in the 30s; given atropine with improvement in heart rate. EKG noted to have a flutter with variable block at 35bpm. Case reviewed with Dr. Correia who recommended dopamine drip. Patient also noted to have hyperkalemia. Will be admitted to ICU for monitoring. PMD: Dr. Adrian PMH: as above SH: denies smoking, drinking and drugs Sx: gallbladder removal, left arm fistula for hemodialysis All: NKDA FH: denies any family history Past Patient History - Infectious Disease Hx of Infectious Diseases: None - Tetanus Immunizations Tetanus Immunization: Unknown - Past Medical History & Family History Past Medical History?: Yes - Past Social History Smoking Status: Never Smoked - RENAL Hx Chronic Kidney Disease: Yes Hx Dialysis: Yes Date of Last Dialysis Treatment: 03/06/18 Hx Renal Failure: Yes Other/Comment: NEW AV SHUNT LEFT ARM - HEMATOLOGICAL/ONCOLOGICAL Hx Blood Disorders: Yes (THROMBOCYTOPENIA) Hx Blood Transfusions: Yes Hx Blood Transfusion Reaction: No Hx Cancer: Yes (MULTIPLE MYELOMA) Hx Chemotherapy: Yes Hx Shingles: Yes - MUSCULOSKELETAL/RHEUMATOLOGICAL Hx Musculoskeletal Disorders: Yes Hx Osteoporosis: Yes - GASTROINTESTINAL Hx Gastrointestinal Disorders: Yes Hx Gall Bladder Disease: Yes - PSYCHIATRIC Hx Substance Use: No - SURGICAL HISTORY Hx Arteriovenous Shunt: Yes (FISTULA LEFT ARM) Hx Cholecystectomy: Yes Hx Vascular Surgery: Yes (PERMA CATH INSERTION ) Hx Vascular Access Device: Yes (LOLI CATH RIGHT CHEST) Other/Comment: 03/01/16- DRAINAGE HEMATOMA LEFT ARM - ANESTHESIA Hx Anesthesia: Yes Hx Anesthesia Reactions: No Hx Malignant Hyperthermia: No Meds Allergies/Adverse Reactions: Allergies Allergy/AdvReac Type Severity Reaction Status Date / Time No Known Allergies Allergy Verified 03/01/15 10:53 - Medications Medications: Current Medications Aspirin (Aspirin Chewable) 81 mg PO DAILY [facility]EL[facility] Cinacalcet (Sensipar) 90 mg PO DAILY [facility] Famotidine (Pepcid) 20 mg PO HS [facility] Dopamine HCl/Dextrose (Dopamine 400mg/250ml D5w) 400 mg in 250 mls @ 13.948 mls /hr IV .[id number] PRN; Protocol; 5 MCG/KG/MIN PRN Reason: TITRATE PER MD ORDER Last Admin: 03/08/18 23:29 Dose: 2.5 mcg/kg/min, 6.974 mls/hr Non-Formulary Medication (Ferric Citrate [Auryxia]) 210 mg PO TID NELIA Physical Exam - Constitutional Additional comments: patient appears restless - Head Exam Head Exam: ATRAUMATIC - Eye Exam Eye Exam: EOMI Pupil Exam: PERRL - ENT Exam ENT Exam: Mucous Membranes Moist - Respiratory Exam Respiratory Exam: Clear to Auscultation Bilateral. absent: Respiratory Distress - Cardiovascular Exam Cardiovascular Exam: Tachycardia, +S1, +S2 Additional comments: on dopamine drip - GI/Abdominal Exam GI & Abdominal Exam: Normal Bowel Sounds. absent: Firm, Guarding - Extremities Exam Extremities exam: Positive for: normal inspection. Negative for: calf tenderness - Back Exam Back exam: NORMAL INSPECTION - Neurological Exam Neurological exam: Alert, Oriented x3 - Skin Skin Exam: Normal Color, Warm Additional comments: AV fistula noted on left arm, no gross bleeding/pus drainage Results - Vital Signs Recent Vital Signs: Last Vital Signs Temp 98.0 F 03/08/18 21:35 Pulse 93 H 03/08/18 23:09 Resp 14 03/08/18 23:09 BP 133/84 03/08/18 23:09 Pulse Ox 98 03/08/18 23:09 - Labs Result Diagrams: 03/08/18 21:23 03/08/18 21:23 Assessment & Plan - Assessment and Plan (Free Text) Assessment: This is a 62 year old male with PMH of multipl myeloma s/p chemo 10 years ago, GERD and ESRD on HD //Thu presenting to the ED for fatigue and restlessness that began at 4 pm today. EKG noted to have a flutter with variable block at 35bpm on admission. Plan: Neuro: -maintain normothermia -AAO x3, moving extremities spontaneously past midline Cardio: -maintain MAP>65 -will monitor vitals including HR and BP closely -Echo on 10/2016 showed EF 56%, RVSP 52mmhg, mild /AR/MS/TR -Cardiac cath in 10/2016 showed small vessel disease, limited to distal LAD. Not suitable for PCI -echo pending -on dopamine drip -EKG noted to have a flutter with variable block at 35bpm on admission -Cardiology on consult, Dr. Correia. Lungs: -SaO2 >90% -supplementary O2 PRN -CXR shows no active disease (interpreted by me) Renal: -maintain euvolemia -avoid nephrotoxic agents, hypochloremia -replace electrolytes as needed -BUN/Cr 61/7.1 -K of 6.2 on admission. Given albuterol, insulin, kayexalate. Will monitor -HD on //Thu -Nephro on consult, Dr. Adrian Heme: -Hg today is 11.3, will monitor -history of multiple myeloma s/p chemo 10 years ago Endo: -maintain euglycemia -accuchecks -TSH/T4 pending ID: -WBC is 3 today, afebrile -blood culture, urine culture, MRSA screen pending -GI: -NPO diet -GI prophylaxis with pepcid Patient seen and case discussed with attending, Dr. Adelia Mishra, PGY-1
[2018-03-09 00:35] LABS: FREE T4 1.54 ng/dL (0.78-2.19)
[2018-03-09 02:58] LABS: TROPONIN I 0.04 ng/mL
[2018-03-09 03:35] VITALS: BMI 25.5
[2018-03-09 03:37] LABS: CALCIUM 8.7 mg/dL (8.4-10.5)
[2018-03-09 07:13] LABS: HEMOGLOBIN 11.2 g/dL (14.0-18.0); MEAN CELL VOLUME 103.3 fl (80.0-105.0); MEAN CORPUSCULAR HEMOGLOBIN 33.2 pg (25.0-35.0); MEAN CORPUSCULAR HGB CONC 32.2 g/dl (31.0-37.0); MEAN PLATELET VOLUME 11.1 fl (7.0-11.0); RBC 3.37 10^6/uL (3.5-6.1); RED CELL DISTRIBUTION WIDTH 15.8 % (11.5-14.5); WHITE BLOOD COUNT 4.3 10^3/ul (4.5-11.0)
[2018-03-09 07:37] LABS: ALB/GLOB RATIO 1.2 (1.1-1.8); ALBUMIN 4.2 g/dL (3.0-4.8); CALCIUM 8.6 mg/dL (8.4-10.5)
--- NOTE | 2018-03-09 08:41 | RAD ---
Date of service: 03/08/2018 HISTORY: Weakness COMPARISON: 02/08/2018. FINDINGS: The right-sided MediPort terminates at the cavoatrial junction. LUNGS: The lungs are well inflated. There is mild pulmonary venous congestion. No focal consolidation. PLEURA: No significant pleural effusion identified, no pneumothorax apparent. CARDIOVASCULAR: Normal. OSSEOUS STRUCTURES: No significant abnormalities. VISUALIZED UPPER ABDOMEN: Normal. OTHER FINDINGS: Stable appearance of left-sided endovascular stent graft. IMPRESSION: Mild pulmonary venous congestion. No active pulmonary disease.
[2018-03-09] MEDS ORDERED: FERRIC CITRATE 210 MG PO SCH ×2 (10:00)
[2018-03-09] MEDS ORDERED: FERRIC CITRATE 420 MG PO SCH (10:00)
--- NOTE | 2018-03-09 10:30 | CARD ---
APPROVED REPORT Date of service: 03/08/2018 EKG Measurement Heart [id number] <Conclusion> A flutter with 3:1 conduction Left axis deviation Right bundle branch block T wave abnormality, consider lateral ischemia Abnormal ECG
--- NOTE | 2018-03-09 10:30 | CARD ---
APPROVED REPORT Date of service: 03/08/2018 EKG Measurement Heart [id number] <Conclusion> Poor data quality, interpretation may be adversely affected Marked sinus bradycardia with 1st degree AV block with premature ventricular complexes or fusion complexes Left axis deviation Right bundle branch block T wave abnormality, consider inferior ischemia Abnormal ECG
--- NOTE | 2018-03-09 10:46 | CP.PCM.CON ---
History of Present Illness - History of Present Illness History of Present Illness: Nephrology Consultation Note: Assessment: Critical Symptomatic Bradycardia with AV block and Hyperkalemia Acute Anxiety ESRD on hemodialysis (TTS) via AVF ( TTS ) Anemia, Hyperphosphatemia, Secondary hyperparathyroidism hx of multiple myeloma Plan: pt getting HD today as ordered in ICU. Continue with Nephrovite 1 tab/day. PRBC as needed for anemia. On CLAUDIA as Mircera as outpt q 2 weeks. last Hb 11.2 Continue with phos binders home med, last phos level 6 BP control with meds as ordered. Patient not on RAAS pilar as tend to have hyperkalemia Dialysis consistent diet Further work up/management as per primary team. cardiology involved Dose meds/antibiotics (if needed) for ESRD status. Avoid fleets enema/magnesium based laxatives. due to his anxiety and elevated HR, d/c dopamine and suggested a dose of benzodiazepine. Strict low K diet. resume veltassa 8.4 gram daily at d/c Thanks for allowing me to participate in care of your patient. Will follow patient with you. Please call if any Qs. had d/w ICU team Dr Jackson Frye Office: [phone] Chief Complaint; restless and high potassium reason for consult; ESRD HPI: Pt is a 62 y/o M with hx of ESRD on hemodialysis (TTS) via AVF, last dialysis thursday, chronic anemia, hyperphosphatemia, secondary hyperparathyroidism, hx of multiple myeloma s/p chemo, chronic hyperkalemia now controlled on veltassa came to hospital with feeling of fatigue and restlessness , found to have bradycardia and hyperkalemia. pt reports no change in diet and claims compliance to meds. pt was admitted last in october 2016 under similar circumstances. outpt K mostly has been under good control. admitted to ICU started on dopamine and renal consult for ESRD management Denies chest pain, palpitation, shortness of breath, leg swelling. he feels very anxious and restless ROS: denies CP/SOB/palpitations/dizziness. c/o anxiety. rest all other neg had chronic cough but better with claritin and pepcid. Physical Examination: seen on HD General Appearance: Comfortable, in no acute respiratory distress, co-operative . ill appearing and anxious Vitals reviewed and noted as below. Head; Atraumatic, normocephalic ENT: no ulcers no thrush. Tongue is midline. Oropharynx: no rash or ulcers. EYES: Pupils are equal, round and reactive to light accommodation. Eye muscles and extraocular movement intact. Sclera is anicteric. Neck; supple no lymphadenopathy, no thyromegaly or bruit Lungs: Normal respiratory rate/effort. Breath sounds bilateral equal and clear except few Rt basal crackle Heart: Increased rate. s1s2 normal. No rub or gallop. Extremities: no edema. No varicose veins Neurological: Patient is alert, awake and oriented to person, place and time now. No focal deficit. Strength bilateral appropriate and equal Skin: Warm and dry. Normal turgor. No rash. Palpitation: Normal elasticity for age Abdomen: Abdomen is soft. Bowel sounds +. There is no abdominal tenderness, no guarding/rigidity or organomegaly Psych: normal insight and anxious MSK: no joint tenderness or swelling. Digits and nails normal, no deformity : kidney or bladder not palpable Access: AVF with thrill and bruit Labs/imaging reviewed. Past medical history, past surgical history, family history, social history, allergy reviewed and noted as below family hx: non contributory Past Patient History - Infectious Disease Hx of Infectious Diseases: None - Tetanus Immunizations Tetanus Immunization: Unknown - Past Medical History & Family History Past Medical History?: Yes - Past Social History Smoking Status: Never Smoked - RENAL Hx Chronic Kidney Disease: Yes Hx Dialysis: Yes Date of Last Dialysis Treatment: 03/06/18 Hx Renal Failure: Yes Other/Comment: NEW AV SHUNT LEFT ARM - HEMATOLOGICAL/ONCOLOGICAL Hx Blood Disorders: Yes (THROMBOCYTOPENIA) Hx Blood Transfusions: Yes Hx Blood Transfusion Reaction: No Hx Cancer: Yes (MULTIPLE MYELOMA) Hx Chemotherapy: Yes Hx Shingles: Yes - MUSCULOSKELETAL/RHEUMATOLOGICAL Hx Musculoskeletal Disorders: Yes Hx Osteoporosis: Yes - GASTROINTESTINAL Hx Gastrointestinal Disorders: Yes Hx Gall Bladder Disease: Yes - PSYCHIATRIC Hx Substance Use: No - SURGICAL HISTORY Hx Arteriovenous Shunt: Yes (FISTULA LEFT ARM) Hx Cholecystectomy: Yes Hx Vascular Surgery: Yes (PERMA CATH INSERTION ) Hx Vascular Access Device: Yes (LOLI CATH RIGHT CHEST) Other/Comment: 03/01/16- DRAINAGE HEMATOMA LEFT ARM - ANESTHESIA Hx Anesthesia: Yes Hx Anesthesia Reactions: No Hx Malignant Hyperthermia: No Meds Allergies/Adverse Reactions: Allergies Allergy/AdvReac Type Severity Reaction Status Date / Time No Known Allergies Allergy Verified 03/01/15 10:53 - Medications Medications: Current Medications Aspirin (Aspirin Chewable) 81 mg PO DAILY [facility]EL[facility] Cinacalcet (Sensipar) 90 mg PO DAILY [facility]EL[facility] Famotidine (Pepcid) 20 mg PO HS NELIA Dopamine HCl/Dextrose (Dopamine 400mg/250ml D5w) 400 mg in 250 mls @ 13.948 mls /hr IV .[id number] PRN; Protocol; 5 MCG/KG/MIN PRN Reason: TITRATE PER MD ORDER Last Titration: 03/09/18 09:00 Dose: 2.5 mcg/kg/min, 6.974 mls/hr Calcium Gluconate 1,000 mg/ (Sodium Chloride) 110 mls @ 110 mls/hr IVPB ONCE ONE Stop: 03/09/18 11:15 Non-Formulary Medication (Ferric Citrate [Auryxia]) 210 mg PO TID NEL[facility] Vitamin B Complex/Vit C/Folic Acid (Nephro-Thomas) 1 tab PO 0800 [facility] Results - Vital Signs Recent Vital Signs: Last Vital Signs Temp 97.3 F L 03/09/18 01:07 Pulse 100 H 03/09/18 09:00 Resp 22 03/09/18 09:00 BP 130/80 03/09/18 09:00 Pulse Ox 96 03/09/18 09:00 - Labs Result Diagrams: 03/09/18 06:10 03/09/18 06:10 Labs: Laboratory Results - last 24 hr 03/09/18 03/09/18 03/09/18 02:10 04:50 06:10 WBC 4.3 L D RBC 3.37 L Hgb 11.2 L Hct 34.8 L MCV 103.3 MCH 33.2 MCHC 32.2 RDW 15.8 H Plt Count 154 MPV 11.1 H Sodium 136 Potassium 6.0 H* Chloride 97 L Carbon Dioxide 25 Anion Gap 20 BUN 63 H Creatinine 6.9 H Est GFR ( Amer) 10 Est GFR (Non-Af Amer) 8 POC Glucose (mg/dL) 104 Random Glucose 70 Calcium 8.7 Phosphorus Magnesium Total Bilirubin AST ALT Alkaline Phosphatase Troponin I 0.04 D Total Protein Albumin Globulin Albumin/Globulin Ratio 03/09/18 03/09/18 03/09/18 06:10 06:10 07:43 WBC RBC Hgb Hct MCV MCH MCHC RDW Plt Count MPV Sodium 138 Potassium 6.1 H* Chloride 97 L Carbon Dioxide 24 Anion Gap 23 H BUN 66 H Creatinine 7.2 H Est GFR ( Amer) 9 Est GFR (Non-Af Amer) 8 POC Glucose (mg/dL) 102 Random Glucose 109 Calcium 8.6 Phosphorus 6.0 H Magnesium 2.3 H Total Bilirubin 1.0 AST 50 ALT 29 Alkaline Phosphatase 105 Troponin I 0.07 D Total Protein 7.7 Albumin 4.2 Globulin 3.5 Albumin/Globulin Ratio 1.2
--- NOTE | 2018-03-09 13:18 | CP.CCUPN ---
<Vince Adkins - Last Filed: 03/09/18 13:12> CCU Subjective - Physician Review Subjective (Free Text): 03/09/18 13:12 Vince Adkins DO PGY1 Internal Medicine [employer] - ICU Progress Note Patient was seen and examined this morning at bedside. Early this AM patient went back into bradycardia; atropine administered and dopamine drip was started. During dialysis, patient was on DA drip and tachycardic. DA drip was DC'd during dialysis. Patient complaining of anxiety on exam; 12 system ROS otherwise negative. CCU Objective - Vital Signs / Intake & Output Intake and Output (Last 8hrs): Intake & Output 03/08/18 03/09/18 03/09/18 22:59 06:59 14:59 Intake Total 95 25 Balance 95 25 Weight 69.655 kg Intake: IV 45 25 Right Forearm 20 Oral 50 Other: # Bowel Movements 2 - Physical Exam Head: Positive for: Atraumatic, Normocephalic Pupils: Positive for: PERRL Extroacular Muscles: Positive for: EOMI Conjunctiva: Positive for: Normal Mouth: Positive for: Moist Mucous Membranes Neck: Positive for: Normal Range of Motion Respiratory/Chest: Positive for: Clear to Auscultation, Good Air Exchange, Other (R chest port ). Negative for: Respiratory Distress, Accessory Muscle Use Cardiovascular: Positive for: Normal S1, S2, Tachycardic. Negative for: Murmurs Abdomen: Negative for: Tenderness, Distention, Peritoneal Signs Back: Positive for: Normal Inspection. Negative for: CVA Tenderness, Midline Tenderness, Paraspinal Tenderness Upper Extremity: Positive for: Normal Inspection, Other (LUE w/ dialysis fistula ). Negative for: Cyanosis, Edema Lower Extremity: Positive for: Normal Inspection. Negative for: Edema Neurological: Positive for: GCS=15, CN II-XII Intact, Speech Normal, Motor Func Grossly Intact, Normal Sensory Function, Normal Cerebellar Funct, Memory Normal Skin: Positive for: Warm, Dry, Normal Color. Negative for: Rashes Psychiatric: Positive for: Alert, Oriented x 3, Normal Insight, Normal Concentration, Anxious - Medications Active Medications: Active Medications Generic Name Dose Route Start Last Admin Trade Name Freq PRN Reason Stop Dose Admin Aspirin 81 mg 03/09/18 10:00 Aspirin Chewable PO DAILY NELIA Cinacalcet 90 mg 03/09/18 10:00 Sensipar PO DAILY [facility] Famotidine 20 mg 03/09/18 22:00 Pepcid PO HS NELIA Dopamine HCl/Dextrose 400 mg in 250 mls @ 13.948 mls/hr 03/08/18 22:08 09:00 Dopamine 400mg/250ml D5w IV 2.5 mcg/kg/min .[id number] PRN 6.974 mls/hr TITRATE PER MD ORDER Titration Protocol 5 MCG/KG/MIN Non-Formulary Medication 210 mg 03/09/18 10:00 Ferric Citrate [Auryxia] PO TID [facility] Vitamin B Complex/Vit C/Folic Acid 1 tab 03/10/18 08:00 Nephro-Thomas PO 0800 [facility] - Patient Studies Lab Studies: Lab Studies 03/09/18 03/09/18 03/09/18 Range/Units 11:29 07:43 06:10 WBC (4.5-11.0) 10^3/ul RBC (3.5-6.1) 10^6/uL Hgb (14.0-18.0) g/dL Hct (42.0-52.0) % MCV (80.0-105.0) fl MCH (25.0-35.0) pg MCHC (31.0-37.0) g/dl RDW (11.5-14.5) % Plt Count (120.0-450.0) 10^3/uL MPV (7.0-11.0) fl Sodium (132-148) mmol/L Potassium (3.6-5.0) mmol/L Chloride (98-107) mmol/L Carbon Dioxide (21-33) mmol/L Anion Gap (10-20) BUN (7-21) mg/dL Creatinine (0.8-1.5) mg/dl Est GFR ( Amer) Est GFR (Non-Af Amer) POC Glucose (mg/dL) 83 102 (65-110) mg/dL Random Glucose (70-110) mg/dL Calcium (8.4-10.5) mg/dL Phosphorus (2.5-4.5) mg/dL Magnesium (1.7-2.2) mg/dL Total Bilirubin (0.2-1.3) mg/dL AST (17-59) U/L ALT (7-56) U/L Alkaline Phosphatase (38-126) U/L Troponin I 0.07 D ng/mL Total Protein (5.8-8.3) g/dL Albumin (3.0-4.8) g/dL Globulin gm/dL Albumin/Globulin Ratio (1.1-1.8) 03/09/18 03/09/18 03/09/18 Range/Units 06:10 06:10 04:50 WBC 4.3 L D (4.5-11.0) 10^3/ul RBC 3.37 L (3.5-6.1) 10^6/uL Hgb 11.2 L (14.0-18.0) g/dL Hct 34.8 L (42.0-52.0) % MCV 103.3 (80.0-105.0) fl MCH 33.2 (25.0-35.0) pg MCHC 32.2 (31.0-37.0) g/dl RDW 15.8 H (11.5-14.5) % Plt Count 154 (120.0-450.0) 10^3/uL MPV 11.1 H (7.0-11.0) fl Sodium 138 (132-148) mmol/L Potassium 6.1 H* (3.6-5.0) mmol/L Chloride 97 L (98-107) mmol/L Carbon Dioxide 24 (21-33) mmol/L Anion Gap 23 H (10-20) BUN 66 H (7-21) mg/dL Creatinine 7.2 H (0.8-1.5) mg/dl Est GFR ( Amer) 9 Est GFR (Non-Af Amer) 8 POC Glucose (mg/dL) 104 (65-110) mg/dL Random Glucose 109 (70-110) mg/dL Calcium 8.6 (8.4-10.5) mg/dL Phosphorus 6.0 H (2.5-4.5) mg/dL Magnesium 2.3 H (1.7-2.2) mg/dL Total Bilirubin 1.0 (0.2-1.3) mg/dL AST 50 (17-59) U/L ALT 29 (7-56) U/L Alkaline Phosphatase 105 (38-126) U/L Troponin I ng/mL Total Protein 7.7 (5.8-8.3) g/dL Albumin 4.2 (3.0-4.8) g/dL Globulin 3.5 gm/dL Albumin/Globulin Ratio 1.2 (1.1-1.8) 03/09/18 Range/Units 02:10 WBC (4.5-11.0) 10^3/ul RBC (3.5-6.1) 10^6/uL Hgb (14.0-18.0) g/dL Hct (42.0-52.0) % MCV (80.0-105.0) fl MCH (25.0-35.0) pg MCHC (31.0-37.0) g/dl RDW (11.5-14.5) % Plt Count (120.0-450.0) 10^3/uL MPV (7.0-11.0) fl Sodium 136 (132-148) mmol/L Potassium 6.0 H* (3.6-5.0) mmol/L Chloride 97 L (98-107) mmol/L Carbon Dioxide 25 (21-33) mmol/L Anion Gap 20 (10-20) BUN 63 H (7-21) mg/dL Creatinine 6.9 H (0.8-1.5) mg/dl Est GFR ( Amer) 10 Est GFR (Non-Af Amer) 8 POC Glucose (mg/dL) (65-110) mg/dL Random Glucose 70 (70-110) mg/dL Calcium 8.7 (8.4-10.5) mg/dL Phosphorus (2.5-4.5) mg/dL Magnesium (1.7-2.2) mg/dL Total Bilirubin (0.2-1.3) mg/dL AST (17-59) U/L ALT (7-56) U/L Alkaline Phosphatase (38-126) U/L Troponin I 0.04 D ng/mL Total Protein (5.8-8.3) g/dL Albumin (3.0-4.8) g/dL Globulin gm/dL Albumin/Globulin Ratio (1.1-1.8) Laboratory Results - last 24 hr 03/09/18 03/09/18 03/09/18 02:10 04:50 06:10 WBC 4.3 L D RBC 3.37 L Hgb 11.2 L Hct 34.8 L MCV 103.3 MCH 33.2 MCHC 32.2 RDW 15.8 H Plt Count 154 MPV 11.1 H Sodium 136 Potassium 6.0 H* Chloride 97 L Carbon Dioxide 25 Anion Gap 20 BUN 63 H Creatinine 6.9 H Est GFR ( Amer) 10 Est GFR (Non-Af Amer) 8 POC Glucose (mg/dL) 104 Random Glucose 70 Calcium 8.7 Phosphorus Magnesium Total Bilirubin AST ALT Alkaline Phosphatase Troponin I 0.04 D Total Protein Albumin Globulin Albumin/Globulin Ratio 03/09/18 03/09/18 03/09/18 06:10 06:10 07:43 WBC RBC Hgb Hct MCV MCH MCHC RDW Plt Count MPV Sodium 138 Potassium 6.1 H* Chloride 97 L Carbon Dioxide 24 Anion Gap 23 H BUN 66 H Creatinine 7.2 H Est GFR ( Amer) 9 Est GFR (Non-Af Amer) 8 POC Glucose (mg/dL) 102 Random Glucose 109 Calcium 8.6 Phosphorus 6.0 H Magnesium 2.3 H Total Bilirubin 1.0 AST 50 ALT 29 Alkaline Phosphatase 105 Troponin I 0.07 D Total Protein 7.7 Albumin 4.2 Globulin 3.5 Albumin/Globulin Ratio 1.2 03/09/18 11:29 WBC RBC Hgb Hct MCV MCH MCHC RDW Plt Count MPV Sodium Potassium Chloride Carbon Dioxide Anion Gap BUN Creatinine Est GFR ( Amer) Est GFR (Non-Af Amer) POC Glucose (mg/dL) 83 Random Glucose Calcium Phosphorus Magnesium Total Bilirubin AST ALT Alkaline Phosphatase Troponin I Total Protein Albumin Globulin Albumin/Globulin Ratio EKG/Cardiology Studies: Cardiology / EKG Studies 03/08/18 22:41 EKG [ELECTROCARDIOGRAM] Stat Comment: Reason For Exam: WEAKNESS/DIZZINESS 03/10/18 07:00 ELECTROCARDIOGRAM Routine Comment: A flutter Reason For Exam: CAD PRE OP:: N Does Patient Have a Pacemaker?: No Fingerstick Blood Sugar Results: 102 Review of Systems - Review of Systems All systems: reviewed and no additional remarkable complaints except Review of Systems: As per HPI Critical Care Progress Note - Nutrition Nutrition: Nutrition Category Date Time Status Renal Diet [DIET] Diets 03/09/18 Lunch Ordered Assessment/Plan - Assessment and Plan (Free Text) Plan: 62M w/ ESRD on HD TTS found to have bradycardia 2/2 hyperkalemia on admission. Neuro AAO3 No FND Reorient as needed Cardio Asymptomatic bradycardia in setting of hyperkalemia HD Stable No chest pain, dizziness, sob, palpitations Dopamine drip DC'd at this time Asymptomatic VTach post HD Will obtain 12 lead EKG Will repeat BMP to follow up K+ levels Ca Gluconate admin this AM Normotensive; not requiring pressor support Maintain MAP >65 Pulm Satting 100% on 2L O2 RR 20 /min No c/o SOB GI Dialysis diet No abd pain N/V/D/C Nephro/ ESRD HD TTS S/p dialysis 03/09 Will repeat BMP to f/u electrolytes Psych Patient with anxiety Attempt to redirect Ativan / Xanax as needed DVT/GI PPX: SCD / Pepcid Dispo: Will continue monitoring patient post dialysis for s/s of HD compromise Patient was seen, discussed, examined w/ attending physician Dr. Dorothy Adkins DO PGY1 - Pager [phone] - Date & Time Date: 03/09/18 Time: 13:53 <Felicia De La Cruz - Last Filed: 03/09/18 14:09> CCU Objective - Vital Signs / Intake & Output Intake and Output (Last 8hrs): Intake & Output 03/08/18 03/09/18 03/09/18 22:59 06:59 14:59 Intake Total 95 25 Balance 95 25 Weight 153 lb 9 oz Intake: IV 45 25 Right Forearm 20 Oral 50 Other: # Bowel Movements 2 - Medications Active Medications: Active Medications Generic Name Dose Route Start Last Admin Trade Name Freq PRN Reason Stop Dose Admin Aspirin 81 mg 03/09/18 10:00 Aspirin Chewable PO DAILY [facility] Cinacalcet 90 mg 03/09/18 10:00 Sensipar PO DAILY [facility] Famotidine 20 mg 03/09/18 22:00 Pepcid PO HS [facility] Dopamine HCl/Dextrose 400 mg in 250 mls @ 13.948 mls/hr 03/08/18 22:08 09:00 Dopamine 400mg/250ml D5w IV 2.5 mcg/kg/min .[id number] PRN 6.974 mls/hr TITRATE PER MD ORDER Titration Protocol 5 MCG/KG/MIN Non-Formulary Medication 210 mg 03/09/18 10:00 Ferric Citrate [Auryxia] PO TID [facility] Vitamin B Complex/Vit C/Folic Acid 1 tab 03/10/18 08:00 Nephro-Thomas PO 0800 [facility] - Patient Studies Lab Studies: Lab Studies 03/09/18 03/09/18 03/09/18 Range/Units 11:29 07:43 06:10 WBC (4.5-11.0) 10^3/ul RBC (3.5-6.1) 10^6/uL Hgb (14.0-18.0) g/dL Hct (42.0-52.0) % MCV (80.0-105.0) fl MCH (25.0-35.0) pg MCHC (31.0-37.0) g/dl RDW (11.5-14.5) % Plt Count (120.0-450.0) 10^3/uL MPV (7.0-11.0) fl Sodium (132-148) mmol/L Potassium (3.6-5.0) mmol/L Chloride (98-107) mmol/L Carbon Dioxide (21-33) mmol/L Anion Gap (10-20) BUN (7-21) mg/dL Creatinine (0.8-1.5) mg/dl Est GFR ( Amer) Est GFR (Non-Af Amer) POC Glucose (mg/dL) 83 102 (65-110) mg/dL Random Glucose (70-110) mg/dL Calcium (8.4-10.5) mg/dL Phosphorus (2.5-4.5) mg/dL Magnesium (1.7-2.2) mg/dL Total Bilirubin (0.2-1.3) mg/dL AST (17-59) U/L ALT (7-56) U/L Alkaline Phosphatase (38-126) U/L Troponin I 0.07 D ng/mL Total Protein (5.8-8.3) g/dL Albumin (3.0-4.8) g/dL Globulin gm/dL Albumin/Globulin Ratio (1.1-1.8) 03/09/18 03/09/18 03/09/18 Range/Units 06:10 06:10 04:50 WBC 4.3 L D (4.5-11.0) 10^3/ul RBC 3.37 L (3.5-6.1) 10^6/uL Hgb 11.2 L (14.0-18.0) g/dL Hct 34.8 L (42.0-52.0) % MCV 103.3 (80.0-105.0) fl MCH 33.2 (25.0-35.0) pg MCHC 32.2 (31.0-37.0) g/dl RDW 15.8 H (11.5-14.5) % Plt Count 154 (120.0-450.0) 10^3/uL MPV 11.1 H (7.0-11.0) fl Sodium 138 (132-148) mmol/L Potassium 6.1 H* (3.6-5.0) mmol/L Chloride 97 L (98-107) mmol/L Carbon Dioxide 24 (21-33) mmol/L Anion Gap 23 H (10-20) BUN 66 H (7-21) mg/dL Creatinine 7.2 H (0.8-1.5) mg/dl Est GFR ( Amer) 9 Est GFR (Non-Af Amer) 8 POC Glucose (mg/dL) 104 (65-110) mg/dL Random Glucose 109 (70-110) mg/dL Calcium 8.6 (8.4-10.5) mg/dL Phosphorus 6.0 H (2.5-4.5) mg/dL Magnesium 2.3 H (1.7-2.2) mg/dL Total Bilirubin 1.0 (0.2-1.3) mg/dL AST 50 (17-59) U/L ALT 29 (7-56) U/L Alkaline Phosphatase 105 (38-126) U/L Troponin I ng/mL Total Protein 7.7 (5.8-8.3) g/dL Albumin 4.2 (3.0-4.8) g/dL Globulin 3.5 gm/dL Albumin/Globulin Ratio 1.2 (1.1-1.8) 03/09/18 Range/Units 02:10 WBC (4.5-11.0) 10^3/ul RBC (3.5-6.1) 10^6/uL Hgb (14.0-18.0) g/dL Hct (42.0-52.0) % MCV (80.0-105.0) fl MCH (25.0-35.0) pg MCHC (31.0-37.0) g/dl RDW (11.5-14.5) % Plt Count (120.0-450.0) 10^3/uL MPV (7.0-11.0) fl Sodium 136 (132-148) mmol/L Potassium 6.0 H* (3.6-5.0) mmol/L Chloride 97 L (98-107) mmol/L Carbon Dioxide 25 (21-33) mmol/L Anion Gap 20 (10-20) BUN 63 H (7-21) mg/dL Creatinine 6.9 H (0.8-1.5) mg/dl Est GFR ( Amer) 10 Est GFR (Non-Af Amer) 8 POC Glucose (mg/dL) (65-110) mg/dL Random Glucose 70 (70-110) mg/dL Calcium 8.7 (8.4-10.5) mg/dL Phosphorus (2.5-4.5) mg/dL Magnesium (1.7-2.2) mg/dL Total Bilirubin (0.2-1.3) mg/dL AST (17-59) U/L ALT (7-56) U/L Alkaline Phosphatase (38-126) U/L Troponin I 0.04 D ng/mL Total Protein (5.8-8.3) g/dL Albumin (3.0-4.8) g/dL Globulin gm/dL Albumin/Globulin Ratio (1.1-1.8) Laboratory Results - last 24 hr 03/09/18 03/09/18 03/09/18 02:10 04:50 06:10 WBC 4.3 L D RBC 3.37 L Hgb 11.2 L Hct 34.8 L MCV 103.3 MCH 33.2 MCHC 32.2 RDW 15.8 H Plt Count 154 MPV 11.1 H Sodium 136 Potassium 6.0 H* Chloride 97 L Carbon Dioxide 25 Anion Gap 20 BUN 63 H Creatinine 6.9 H Est GFR ( Amer) 10 Est GFR (Non-Af Amer) 8 POC Glucose (mg/dL) 104 Random Glucose 70 Calcium 8.7 Phosphorus Magnesium Total Bilirubin AST ALT Alkaline Phosphatase Troponin I 0.04 D Total Protein Albumin Globulin Albumin/Globulin Ratio 03/09/18 03/09/18 03/09/18 06:10 06:10 07:43 WBC RBC Hgb Hct MCV MCH MCHC RDW Plt Count MPV Sodium 138 Potassium 6.1 H* Chloride 97 L Carbon Dioxide 24 Anion Gap 23 H BUN 66 H Creatinine 7.2 H Est GFR ( Amer) 9 Est GFR (Non-Af Amer) 8 POC Glucose (mg/dL) 102 Random Glucose 109 Calcium 8.6 Phosphorus 6.0 H Magnesium 2.3 H Total Bilirubin 1.0 AST 50 ALT 29 Alkaline Phosphatase 105 Troponin I 0.07 D Total Protein 7.7 Albumin 4.2 Globulin 3.5 Albumin/Globulin Ratio 1.2 03/09/18 11:29 WBC RBC Hgb Hct MCV MCH MCHC RDW Plt Count MPV Sodium Potassium Chloride Carbon Dioxide Anion Gap BUN Creatinine Est GFR ( Amer) Est GFR (Non-Af Amer) POC Glucose (mg/dL) 83 Random Glucose Calcium Phosphorus Magnesium Total Bilirubin AST ALT Alkaline Phosphatase Troponin I Total Protein Albumin Globulin Albumin/Globulin Ratio EKG/Cardiology Studies: Cardiology / EKG Studies 03/08/18 22:41 EKG [ELECTROCARDIOGRAM] Stat Comment: Reason For Exam: WEAKNESS/DIZZINESS 03/09/18 EKG [ELECTROCARDIOGRAM] Urgent Comment: Reason For Exam: Vtach 03/10/18 07:00 ELECTROCARDIOGRAM Routine Comment: A flutter Reason For Exam: CAD PRE OP:: N Does Patient Have a Pacemaker?: No Critical Care Progress Note - Nutrition Nutrition: Nutrition Category Date Time Status Renal Diet [DIET] Diets 03/09/18 Lunch Ordered Addendum Addendum: 03/09/18 14:06 ICU Attending Addendum: Patient seen and examined. Case reviewed on round with housestaff. Agree with resident note above with the following additions/exceptions: 62 year old male with PMH of multipl myeloma s/p chemo 10 years ago, GERD and ESRD on HD //Thu admitted with hyperK and bradycardia. Initially medically managed with insulin/dextrose and kayexalate as well as dopamine. This AM, tachycardic. D/c Dopamine HD this AM I expect his cardiac status to improve with stabilization of his K and fluid removal If stable post -HD will consider transferring check chem post-HD Rest of care as noted above. Felicia De La Cruz MD [employer]
[2018-03-09 15:42] LABS: CALCIUM 9.5 mg/dL (8.4-10.5)
[2018-03-09] MEDS: FERRIC CITRATE 630 MG PO SCH (17:01)
[2018-03-09] MEDS: diltiaZEM IVPB 100mg in NS 100 ML IV PRN (17:03)
--- NOTE | 2018-03-09 20:28 | CARD ---
APPROVED REPORT Date of service: 03/09/2018 EKG Measurement Heart [id number] <Conclusion> Atrial flutter with variable AV block with premature ventricular or aberrantly conducted complexes Left axis deviation Inferior infarct, age undetermined Cannot rule out Anterior infarct, age undetermined Abnormal ECG
[2018-03-10] MEDS: diltiaZEM IVPB 100mg in NS 100 ML IV PRN (00:11)
[2018-03-10 07:57] LABS: HEMOGLOBIN 9.6 g/dL (14.0-18.0); MEAN CELL VOLUME 102.1 fl (80.0-105.0); MEAN CORPUSCULAR HEMOGLOBIN 33.2 pg (25.0-35.0); MEAN CORPUSCULAR HGB CONC 32.5 g/dl (31.0-37.0); MEAN PLATELET VOLUME 10.4 fl (7.0-11.0); RBC 2.89 10^6/uL (3.5-6.1); RED CELL DISTRIBUTION WIDTH 15.8 % (11.5-14.5)
[2018-03-10] MEDS: Multivitamin Vitamin B Complex (Nephro-Vite) Tab PO SCH (08:08)
[2018-03-10] MEDS: FERRIC CITRATE 630 MG PO SCH ×3 (08:08→16:38)
[2018-03-10 08:11] LABS: ALB/GLOB RATIO 1.2 (1.1-1.8); ALBUMIN 3.7 g/dL (3.0-4.8); CALCIUM 8.3 mg/dL (8.4-10.5)
--- NOTE | 2018-03-10 08:13 | HP ---
CHIEF COMPLAINT: Fatigue, restlessness. HISTORY OF PRESENT ILLNESS: Mr. Pipe Betancur is a 62-year-old male with a past medical history of multiple myeloma, status post chemotherapy 10 years ago, GERD, dyspepsia, end-stage renal disease, on hemodialysis 3 times a week, came with fatigue and restlessness. The patient states that he had similar symptoms a few months ago and got treatment for hyperkalemia at that time with resolution of symptoms. His last hemodialysis was on Thursday and is scheduled for the hemodialysis tomorrow. When I examined, the patient is in no more chest pain or shortness of breath. No headache or dizziness. No abdominal pain. No urinary problems or back pain. No vomiting or swelling of the legs. No chest pain. No palpitation. No history of recent contact at home or travel. In the ED, patient had bradycardia in 30s, given atropine with improvement in the heart rate. EKG noted to have flutter with variable blocks at 35 beats per minute. Case was discussed with Dr. Correia by the ER physician, recommended dopamine drip. Patient also started to have hyperkalemia. We will . We will repeat labs. Patient was seen and examined by me in the unit. PAST MEDICAL HISTORY: As above. History of thrombocytopenia, multiple myeloma, shingles, chemotherapy, osteoarthritis, genitourinary disorders. SOCIAL HISTORY: Smoking, never smoking. No drug. No ethanol. ALLERGIES: PATIENT IS NOT ALLERGIC WITH ANY MEDICATIONS. HOME MEDICATIONS: Aspirin, Sensipar, Pepcid, dopamine, Auryxia. REVIEW OF SYSTEMS: Patient was seen and examined on the bedside in the unit, looks better. No fever. No chills. No nausea, vomiting, or diarrhea. No headache, no dizziness. PHYSICAL EXAMINATION: VITAL SIGNS: Temperature 98, pulse 93, respiratory rate 14, blood pressure 135/84, pulse oximetry 98%. HEENT: Head: Normocephalic and atraumatic. Eyes: PERRLA. Extraocular muscles intact. Conjunctivae clear. Nose patent. NECK: Supple. No carotid bruit, JVD, or thyromegaly. CHEST: Bilaterally symmetrical. HEART: S1 and S2 positive. LUNGS: Clear to auscultation. ABDOMEN: Soft. Bowel sounds present. No organomegaly. EXTREMITIES: No edema. No cyanosis. NEUROLOGIC: Patient is awake and alert. Moving all 4 extremities. No focal deficit. LABORATORY DATA: White blood cells 3.6, hemoglobin 11.7, hematocrit 29.8. Sodium 136, potassium 2.6, is trending up. renal insufficiency, hemodialysis 3 times a week, hyperglycemia, status post multiple myeloma, status post chemotherapy 10 years ago, gastroesophageal reflux disease, dyspepsia, . EKG is noted to have flutter or variations . ASSESSMENT AND PLAN: Mr. Pipe Betancur is a 62-year-old male with leukopenia, anemia, hyperkalemia, renal insufficiency , history of gastroesophageal reflux disease, dyspepsia, syndrome, thrombocytopenia, status post chemotherapy. Continue present treatment. Repeat labs. We will follow up. Staci Garnica MD
--- NOTE | 2018-03-10 08:20 | CON ---
DATE: 03/09/2018 SERVICE: Cardiology. REASON FOR THE CONSULTATION AND FOLLOWUP: Symptomatic bradycardia, cardiac evaluation, history of coronary artery disease. BRIEF CLINICAL HISTORY: This is a 62-year-old male with past medical history significant for multiple myeloma; on dialysis for 11 years, on Thursday, , and Thursday, who was in his usual state of health, last night felt funny sensation, shortness of breath, so he came to the emergency room, found to be in atrial flutter with heart rate of 30s, and I was called for evaluation, discussed with at that time blood work was not available, advised to check potassium and, later on the potassium found to be 6.4. Started dopamine until the heart rate is 100. No further episode of bradycardia noted. On dopamine, heart rate went up to the 90 to 100. The patient denies any chest pain or shortness of breath. The patient's family is at the bedside. PAST MEDICAL HISTORY: Significant for multiple myeloma; end-stage renal disease, on dialysis for 11 years. The patient was last admitted on 11/18/2016, with heart block and altered mental status, hyperkalemia with potassium of 6.7, started on dopamine and had a dialysis and heart block completely resolved at that time. The patient subsequently has a multiple time troponin positive, so underwent cardiac catheterization that revealed small-vessel disease including distal LAD 90% 1-mm vessel less than and PLV branch of RCA 100% occluded small-vessel disease, less than 1.5 mm vessels. Major epicardial artery is essentially free of significant disease. PREVIOUS CARDIAC WORKUP: As follows. The patient had cardiac catheterization done on the last admission , and the patient was admitted with a complete heart block secondary to hyperkalemia and positive troponin. Cardiac catheterization revealed a small vessel disease limited to distal LAD and PLV branch of RCA, both are less than 1.5-mm in diameter, not suitable for PCI; preserved LV function with ejection fraction 55%, EDP was in the range of 6-8 post dialysis. Medical treatment recommended. On admission, the patient was in heart block with hyperkalemia of 6.7 and later on the dialysis, the patient's symptoms completely abated. The patient has also echocardiography done on last admission 11/17/2016, that revealed ejection fraction of 55%, trace to mild valvular aortic stenosis, mild to moderate mitral regurgitation, mild mitral valvular stenosis, mild to moderate tricuspid regurgitation normal size, no pericardial effusion, no thrombus noted. Echo dated on 11/17/2016, but on cardiac catheterization, no gradient across the aortic valve noted. SOCIAL HISTORY: Denies any smoking. Denies any history of alcohol abuse. FAMILY HISTORY: Noncontributory. PAST SURGICAL HISTORY: Significant for AV fistula in the left arm. REVIEW OF SYSTEMS: A 14-point review of systems as per HPI. ALLERGIES: NO KNOWN DRUG ALLERGY. CURRENT MEDICATIONS: The patient is taking at home Renagel, valsartan, famotidine, Plavix, PhosLo, and aspirin. PHYSICAL EXAMINATION: VITAL SIGNS: Height of the patient is 5 feet 5 inches. Weight of the patient 153 pounds. Body mass index 25.6 kg/m2. Rest of the vitals; temperature afebrile, heart rate 100, blood pressure 130/80. HEENT: PERRLA. Extraocular muscles intact. NECK: Supple. No carotid bruits or thyromegaly. CHEST: Clear to auscultation. HEART: S1 and S2, regular. ABDOMEN: Soft. EXTREMITIES: Clubbing and cyanosis negative. LABORATORY DATA: Blood workup as follows; WBC of 4.3, hemoglobin 11.2, hematocrit 34.8, platelet count 154. Chemistry shows sodium of 130, potassium 6.1, chloride 97, carbon dioxide 24, anion gap of 33, BUN 62, creatinine 7.2. Admitting potassium 6.2. Troponin's 0.02 and 0.04. EKG shows atrial flutter with 4:1 conduction variable block. Repeat EKG shows atrial flutter with 3:1 conduction with heart rate 90. IMPRESSION: A 62-year-old male with a past medical history significant for multiple myeloma that leads to acute kidney injury, and on dialysis since years, admitted with feeling very weak, heart rate of 30, resolved with dopamine, now the patient is in atrial flutter, admitting potassium with hyperkalemia. RECOMMENDATIONS: Get the dialysis, and after dialysis, if the blood pressure remains stable, we will wean off the dopamine and monitor for the heart rate. If the heart rate still remains off dopamine, consider pacemaker, otherwise treat medically. The patient had a cardiac catheterization on 11/22/2016, and that revealed a small-vessel disease, distal LAD 100% occluded, distal PLV branch of RCA occluded, less than 1.5 mm, not suitable for PCI, preserved LV function, mild aortic stenosis by echo and by cath and no gradient across the aortic valve. We will get echo repeat to assess LV function. We will monitor closely and follow up. If the patient's heart rate is stable, we will start low dose Eliquis, renal adjusted, and we will discontinue Plavix. Further recommendations depending on the hospital course. We will get lipid profile, TSH, hemoglobin A1c. So far, no evidence of acute MS. We will follow with you. Thank you, Dr. Garnica, for providing us the opportunity in taking care of the patient, Pipe Betancur. Janusz Correia MD
[2018-03-10 08:21] LABS: WHITE BLOOD COUNT 2.1 10^3/ul (4.5-11.0)
--- NOTE | 2018-03-10 09:40 | CARD ---
APPROVED REPORT Date of service: 03/10/2018 EKG Measurement Heart [id number] <Conclusion> Normal sinus rhythm Left axis deviation Inferior infarct, age undetermined Anterior infarct, age undetermined Abnormal ECG
--- NOTE | 2018-03-10 11:57 | CP.CCUPN ---
<Vince Adkins - Last Filed: 03/10/18 12:03> CCU Subjective - Physician Review Subjective (Free Text): Vince Adkins DO PGY1 Internal Medicine Rolling Attendant - ICU Progress Note Patient was seen and examined at bedside this AM Overnight patient did have pause and beginning of evening patient was tachycardic. Heart rate improved after midnight; Voicing no complaints this AM of chest pain , sob, palp, abd pain, N/V/D/C. Tolerating diet well. Remainder of 12 system ROS is otherwise unremarkable. 03/10/18 12:03 CCU Objective - Vital Signs / Intake & Output Vital Signs (Last 4 hours): Vital Signs Pulse Resp BP Pulse Ox 03/10/18 11:10 94 H 23 03/10/18 11:00 94 H 20 105/70 03/10/18 10:50 95 H 22 03/10/18 10:40 97 H 26 H 03/10/18 10:30 98 H 22 128/74 100 03/10/18 10:20 100 H 29 H 100 03/10/18 10:15 93 H 18 03/10/18 10:14 97 H 03/10/18 10:10 94 H 24 98 03/10/18 10:00 102 H 19 126/61 82 L 03/10/18 09:50 96 H 19 99 03/10/18 09:40 94 H 21 99 03/10/18 09:30 95 H 24 102/69 100 03/10/18 09:20 108 H 40 H 98 03/10/18 09:10 94 H 22 100 03/10/18 09:00 95 H 26 H 108/70 100 03/10/18 08:50 97 H 22 100 03/10/18 08:40 101 H 29 H 100 03/10/18 08:30 95 H 16 112/78 96 03/10/18 08:20 94 H 23 82 L 03/10/18 08:10 93 H 27 H 100 03/10/18 08:00 93 H 18 104/72 99 Intake and Output (Last 8hrs): Intake & Output 03/09/18 03/10/18 03/10/18 22:59 06:59 14:59 Intake Total 370 245 Output Total 2300 Balance -1930 245 Intake: IV 130 95 Right Forearm 115 Oral 240 150 Output: Other 2300 - Physical Exam Head: Positive for: Atraumatic, Normocephalic Pupils: Positive for: PERRL Extroacular Muscles: Positive for: EOMI Conjunctiva: Positive for: Normal Mouth: Positive for: Moist Mucous Membranes Neck: Positive for: Normal Range of Motion Respiratory/Chest: Positive for: Clear to Auscultation, Good Air Exchange, Other (R chest port ). Negative for: Respiratory Distress, Accessory Muscle Use Cardiovascular: Positive for: Normal S1, S2, Tachycardic, Other (squeak on systole). Negative for: Murmurs Abdomen: Negative for: Tenderness, Distention, Peritoneal Signs Back: Positive for: Normal Inspection. Negative for: CVA Tenderness, Midline Tenderness, Paraspinal Tenderness Upper Extremity: Positive for: Normal Inspection, Other (LUE w/ dialysis fistula ). Negative for: Cyanosis, Edema Lower Extremity: Positive for: Normal Inspection. Negative for: Edema Neurological: Positive for: GCS=15, CN II-XII Intact, Speech Normal, Motor Func Grossly Intact, Normal Sensory Function, Normal Cerebellar Funct, Memory Normal Skin: Positive for: Warm, Dry, Normal Color. Negative for: Rashes Psychiatric: Positive for: Alert, Oriented x 3, Normal Insight, Normal Concentration, Anxious - Medications Active Medications: Active Medications Generic Name Dose Route Start Last Admin Trade Name Freq PRN Reason Stop Dose Admin Aspirin 81 mg 03/09/18 10:00 03/10/18 10:13 Aspirin Chewable PO 81 mg DAILY NELIA Administration Cinacalcet 90 mg 03/09/18 10:00 03/10/18 10:13 Sensipar PO 90 mg DAILY NELIA Administration Famotidine 20 mg 03/09/18 22:00 03/09/18 22:08 Pepcid PO 20 mg HS NELIA Administration Ferric Citrate [ 630 mg 03/09/18 16:30 03/10/18 08:08 Auryxia] 630 Mg ( PO 630 mg Home Med) AC NELIA Administration Vitamin B Complex/Vit C/Folic Acid 1 tab 03/10/18 08:00 03/10/18 08:08 Nephro-Thomas PO 1 tab 0800 NELIA Administration - Patient Studies Lab Studies: Lab Studies 03/10/18 03/10/18 03/10/18 Range/Units 07:45 07:45 07:30 WBC 2.1 L* D (4.5-11.0) 10^3/ul RBC 2.89 L (3.5-6.1) 10^6/uL Hgb 9.6 L (14.0-18.0) g/dL Hct 29.5 L (42.0-52.0) % MCV 102.1 (80.0-105.0) fl MCH 33.2 (25.0-35.0) pg MCHC 32.5 (31.0-37.0) g/dl RDW 15.8 H (11.5-14.5) % Plt Count 125 (120.0-450.0) 10^3/uL MPV 10.4 (7.0-11.0) fl Sodium 137 (132-148) mmol/L Potassium 4.2 (3.6-5.0) mmol/L Chloride 98 (98-107) mmol/L Carbon Dioxide 29 (21-33) mmol/L Anion Gap 15 (10-20) BUN 35 H (7-21) mg/dL Creatinine 5.4 H (0.8-1.5) mg/dl Est GFR ( Amer) 13 Est GFR (Non-Af Amer) 11 POC Glucose (mg/dL) (65-110) mg/dL Random Glucose 102 (70-110) mg/dL Hemoglobin A1c 5.5 (4.2-6.5) % Calcium 8.3 L (8.4-10.5) mg/dL Phosphorus 4.7 H (2.5-4.5) mg/dL Magnesium 2.2 (1.7-2.2) mg/dL Total Bilirubin 1.0 (0.2-1.3) mg/dL AST 32 (17-59) U/L ALT 30 (7-56) U/L Alkaline Phosphatase 93 (38-126) U/L Total Protein 6.8 (5.8-8.3) g/dL Albumin 3.7 (3.0-4.8) g/dL Globulin 3.1 gm/dL Albumin/Globulin Ratio 1.2 (1.1-1.8) Triglycerides 77 (35-160) mg/dL Cholesterol 101 L (130-200) mg/dL LDL Cholesterol Direct 41 (0-129) mg/dL HDL Cholesterol 36 (29-60) mg/dL 03/09/18 03/09/18 03/09/18 Range/Units 22:03 15:48 15:15 WBC (4.5-11.0) 10^3/ul RBC (3.5-6.1) 10^6/uL Hgb (14.0-18.0) g/dL Hct (42.0-52.0) % MCV (80.0-105.0) fl MCH (25.0-35.0) pg MCHC (31.0-37.0) g/dl RDW (11.5-14.5) % Plt Count (120.0-450.0) 10^3/uL MPV (7.0-11.0) fl Sodium 138 (132-148) mmol/L Potassium 4.6 (3.6-5.0) mmol/L Chloride 96 L (98-107) mmol/L Carbon Dioxide 29 (21-33) mmol/L Anion Gap 18 (10-20) BUN 28 H (7-21) mg/dL Creatinine 4.0 H (0.8-1.5) mg/dl Est GFR ( Amer) 18 Est GFR (Non-Af Amer) 15 POC Glucose (mg/dL) 92 143 H (65-110) mg/dL Random Glucose 119 H (70-110) mg/dL Hemoglobin A1c (4.2-6.5) % Calcium 9.5 (8.4-10.5) mg/dL Phosphorus 4.3 (2.5-4.5) mg/dL Magnesium 2.2 (1.7-2.2) mg/dL Total Bilirubin (0.2-1.3) mg/dL AST (17-59) U/L ALT (7-56) U/L Alkaline Phosphatase (38-126) U/L Total Protein (5.8-8.3) g/dL Albumin (3.0-4.8) g/dL Globulin gm/dL Albumin/Globulin Ratio (1.1-1.8) Triglycerides (35-160) mg/dL Cholesterol (130-200) mg/dL LDL Cholesterol Direct (0-129) mg/dL HDL Cholesterol (29-60) mg/dL Laboratory Results - last 24 hr 03/09/18 03/09/18 03/09/18 15:15 15:48 22:03 WBC RBC Hgb Hct MCV MCH MCHC RDW Plt Count MPV Sodium 138 Potassium 4.6 Chloride 96 L Carbon Dioxide 29 Anion Gap 18 BUN 28 H Creatinine 4.0 H Est GFR ( Amer) 18 Est GFR (Non-Af Amer) 15 POC Glucose (mg/dL) 143 H 92 Random Glucose 119 H Hemoglobin A1c Calcium 9.5 Phosphorus 4.3 Magnesium 2.2 Total Bilirubin AST ALT Alkaline Phosphatase Total Protein Albumin Globulin Albumin/Globulin Ratio Triglycerides Cholesterol LDL Cholesterol Direct HDL Cholesterol 03/10/18 03/10/18 03/10/18 07:30 07:45 07:45 WBC 2.1 L* D RBC 2.89 L Hgb 9.6 L Hct 29.5 L MCV 102.1 MCH 33.2 MCHC 32.5 RDW 15.8 H Plt Count 125 MPV 10.4 Sodium 137 Potassium 4.2 Chloride 98 Carbon Dioxide 29 Anion Gap 15 BUN 35 H Creatinine 5.4 H Est GFR ( Amer) 13 Est GFR (Non-Af Amer) 11 POC Glucose (mg/dL) Random Glucose 102 Hemoglobin A1c 5.5 Calcium 8.3 L Phosphorus 4.7 H Magnesium 2.2 Total Bilirubin 1.0 AST 32 ALT 30 Alkaline Phosphatase 93 Total Protein 6.8 Albumin 3.7 Globulin 3.1 Albumin/Globulin Ratio 1.2 Triglycerides 77 Cholesterol 101 L LDL Cholesterol Direct 41 HDL Cholesterol 36 EKG/Cardiology Studies: Cardiology / EKG Studies 03/10/18 07:00 ELECTROCARDIOGRAM Routine Comment: A flutter Reason For Exam: CAD PRE OP:: N Does Patient Have a Pacemaker?: No Fingerstick Blood Sugar Results: 143 Critical Care Progress Note - Nutrition Nutrition: Nutrition Category Date Time Status Renal Diet [DIET] Diets 03/09/18 Lunch Ordered Assessment/Plan - Assessment and Plan (Free Text) Assessment: 62M w/ ESRD on HD TTS found to have bradycardia 2/2 hyperkalemia on admission. Neuro AAO3 No FND Reorient as needed Cardio Asymptomatic bradycardia in setting of hyperkalemia HD Stable No chest pain, dizziness, sob, palpitations Dopamine drip DC'd at this time Asymptomatic VTach post HD Will obtain 12 lead EKG Will repeat BMP to follow up K+ levels Ca Gluconate admin this AM Normotensive; not requiring pressor support Maintain MAP >65 Pulm Satting 100% on 2L O2 RR 20 /min No c/o SOB GI Dialysis diet No abd pain N/V/D/C Nephro/ ESRD HD TTS S/p dialysis 03/09 Will repeat BMP to f/u electrolytes Psych Patient with anxiety Attempt to redirect Ativan / Xanax as needed DVT/GI PPX: SCD / Pepcid Dispo: Will continue monitoring patient post dialysis for s/s of HD compromise Patient was seen, discussed, examined w/ attending physician Dr. Dorothy Adkins DO PGY1 - Pager [phone] <Felicia De La Cruz - Last Filed: 03/10/18 14:23> CCU Objective - Vital Signs / Intake & Output Vital Signs (Last 4 hours): Vital Signs Temp Pulse Resp BP Pulse Ox 03/10/18 13:00 92 H 26 H 95/56 L 03/10/18 12:50 95 H 30 H 03/10/18 12:40 97 H 28 H 03/10/18 12:30 100 H 21 103/68 03/10/18 12:20 99 H 22 03/10/18 12:10 98 H 36 H 03/10/18 12:03 94 H 24 98/67 L 03/10/18 12:01 95 H 16 110/49 L 03/10/18 12:00 98.2 F 92 H 32 H 03/10/18 11:50 91 H 03/10/18 11:40 91 H 23 03/10/18 11:30 96 H 21 95/59 L 03/10/18 11:20 93 H 16 03/10/18 11:10 94 H 23 03/10/18 11:00 94 H 20 105/70 03/10/18 10:50 95 H 22 03/10/18 10:40 97 H 26 H 03/10/18 10:30 98 H 22 128/74 100 03/10/18 10:20 100 H 29 H 100 Intake and Output (Last 8hrs): Intake & Output 03/09/18 03/10/18 03/10/18 22:59 06:59 14:59 Intake Total 370 245 Output Total 2300 Balance -1930 245 Intake: IV 130 95 Right Forearm 115 Oral 240 150 Output: Other 2300 - Medications Active Medications: Active Medications Generic Name Dose Route Start Last Admin Trade Name Freq PRN Reason Stop Dose Admin Aspirin 81 mg 03/09/18 10:00 03/10/18 10:13 Aspirin Chewable PO 81 mg DAILY NELIA Administration Cinacalcet 90 mg 03/09/18 10:00 03/10/18 10:13 Sensipar PO 90 mg DAILY NELIA Administration Famotidine 20 mg 03/09/18 22:00 03/09/18 22:08 Pepcid PO 20 mg HS NELIA Administration Ferric Citrate [ 630 mg 03/09/18 16:30 03/10/18 12:24 Auryxia] 630 Mg ( PO 630 mg Home Med) AC NELIA Administration Vitamin B Complex/Vit C/Folic Acid 1 tab 03/10/18 08:00 03/10/18 08:08 Nephro-Thomas PO 1 tab 0800 NELIA Administration - Patient Studies Lab Studies: Lab Studies 03/10/18 03/10/18 03/10/18 Range/Units 07:45 07:45 07:30 WBC 2.1 L* D (4.5-11.0) 10^3/ul RBC 2.89 L (3.5-6.1) 10^6/uL Hgb 9.6 L (14.0-18.0) g/dL Hct 29.5 L (42.0-52.0) % MCV 102.1 (80.0-105.0) fl MCH 33.2 (25.0-35.0) pg MCHC 32.5 (31.0-37.0) g/dl RDW 15.8 H (11.5-14.5) % Plt Count 125 (120.0-450.0) 10^3/uL MPV 10.4 (7.0-11.0) fl Sodium 137 (132-148) mmol/L Potassium 4.2 (3.6-5.0) mmol/L Chloride 98 (98-107) mmol/L Carbon Dioxide 29 (21-33) mmol/L Anion Gap 15 (10-20) BUN 35 H (7-21) mg/dL Creatinine 5.4 H (0.8-1.5) mg/dl Est GFR ( Amer) 13 Est GFR (Non-Af Amer) 11 POC Glucose (mg/dL) (65-110) mg/dL Random Glucose 102 (70-110) mg/dL Hemoglobin A1c 5.5 (4.2-6.5) % Calcium 8.3 L (8.4-10.5) mg/dL Phosphorus 4.7 H (2.5-4.5) mg/dL Magnesium 2.2 (1.7-2.2) mg/dL Total Bilirubin 1.0 (0.2-1.3) mg/dL AST 32 (17-59) U/L ALT 30 (7-56) U/L Alkaline Phosphatase 93 (38-126) U/L Total Protein 6.8 (5.8-8.3) g/dL Albumin 3.7 (3.0-4.8) g/dL Globulin 3.1 gm/dL Albumin/Globulin Ratio 1.2 (1.1-1.8) Triglycerides 77 (35-160) mg/dL Cholesterol 101 L (130-200) mg/dL LDL Cholesterol Direct 41 (0-129) mg/dL HDL Cholesterol 36 (29-60) mg/dL 03/09/18 03/09/18 03/09/18 Range/Units 22:03 15:48 15:15 WBC (4.5-11.0) 10^3/ul RBC (3.5-6.1) 10^6/uL Hgb (14.0-18.0) g/dL Hct (42.0-52.0) % MCV (80.0-105.0) fl MCH (25.0-35.0) pg MCHC (31.0-37.0) g/dl RDW (11.5-14.5) % Plt Count (120.0-450.0) 10^3/uL MPV (7.0-11.0) fl Sodium 138 (132-148) mmol/L Potassium 4.6 (3.6-5.0) mmol/L Chloride 96 L (98-107) mmol/L Carbon Dioxide 29 (21-33) mmol/L Anion Gap 18 (10-20) BUN 28 H (7-21) mg/dL Creatinine 4.0 H (0.8-1.5) mg/dl Est GFR ( Amer) 18 Est GFR (Non-Af Amer) 15 POC Glucose (mg/dL) 92 143 H (65-110) mg/dL Random Glucose 119 H (70-110) mg/dL Hemoglobin A1c (4.2-6.5) % Calcium 9.5 (8.4-10.5) mg/dL Phosphorus 4.3 (2.5-4.5) mg/dL Magnesium 2.2 (1.7-2.2) mg/dL Total Bilirubin (0.2-1.3) mg/dL AST (17-59) U/L ALT (7-56) U/L Alkaline Phosphatase (38-126) U/L Total Protein (5.8-8.3) g/dL Albumin (3.0-4.8) g/dL Globulin gm/dL Albumin/Globulin Ratio (1.1-1.8) Triglycerides (35-160) mg/dL Cholesterol (130-200) mg/dL LDL Cholesterol Direct (0-129) mg/dL HDL Cholesterol (29-60) mg/dL Laboratory Results - last 24 hr 03/09/18 03/09/18 03/09/18 15:15 15:48 22:03 WBC RBC Hgb Hct MCV MCH MCHC RDW Plt Count MPV Sodium 138 Potassium 4.6 Chloride 96 L Carbon Dioxide 29 Anion Gap 18 BUN 28 H Creatinine 4.0 H Est GFR ( Amer) 18 Est GFR (Non-Af Amer) 15 POC Glucose (mg/dL) 143 H 92 Random Glucose 119 H Hemoglobin A1c Calcium 9.5 Phosphorus 4.3 Magnesium 2.2 Total Bilirubin AST ALT Alkaline Phosphatase Total Protein Albumin Globulin Albumin/Globulin Ratio Triglycerides Cholesterol LDL Cholesterol Direct HDL Cholesterol 03/10/18 03/10/18 03/10/18 07:30 07:45 07:45 WBC 2.1 L* D RBC 2.89 L Hgb 9.6 L Hct 29.5 L MCV 102.1 MCH 33.2 MCHC 32.5 RDW 15.8 H Plt Count 125 MPV 10.4 Sodium 137 Potassium 4.2 Chloride 98 Carbon Dioxide 29 Anion Gap 15 BUN 35 H Creatinine 5.4 H Est GFR ( Amer) 13 Est GFR (Non-Af Amer) 11 POC Glucose (mg/dL) Random Glucose 102 Hemoglobin A1c 5.5 Calcium 8.3 L Phosphorus 4.7 H Magnesium 2.2 Total Bilirubin 1.0 AST 32 ALT 30 Alkaline Phosphatase 93 Total Protein 6.8 Albumin 3.7 Globulin 3.1 Albumin/Globulin Ratio 1.2 Triglycerides 77 Cholesterol 101 L LDL Cholesterol Direct 41 HDL Cholesterol 36 EKG/Cardiology Studies: Cardiology / EKG Studies 03/10/18 07:00 ELECTROCARDIOGRAM Routine Comment: A flutter Reason For Exam: CAD PRE OP:: N Does Patient Have a Pacemaker?: No Critical Care Progress Note - Nutrition Nutrition: Nutrition Category Date Time Status Renal Diet [DIET] Diets 03/09/18 Lunch Ordered Addendum Addendum: 03/10/18 14:17 ICU Attending Addendum: Patient seen and examined. Case reviewed on round with housestaff. Agree with resident note above with the following additions/exceptions: 62 year old male with PMH of multipl myeloma s/p chemo 10 years ago, GERD and ESRD on HD //Sat admitted with hyperK and bradycardia. Bradycardia and hyperK resolved with HD yesterday repeat chem WNL Was in rapid aflutter yesterday, tx with cardizem drip eventually weaned off without PO rate control meds he had a pause last night as well possible tachy-keya has had cardiac cath in 2017 showing CAD (see cardio note) cardio rec PPM HD /Thu/Sat Otherwise clinically stable for transfer to TELE Rest of care as noted above. Felicia De La Cruz MD Music Historian
--- NOTE | 2018-03-10 14:06 | PN ---
DATE: 03/10/2018 REASON FOR THE CONSULTATION AND FOLLOWUP: Bradycardia; 4-second pause; cardiac evaluation; history of coronary artery disease, nonobstructive. SUBJECTIVE: The patient denies any chest pain, shortness of breath or any palpitation. OBJECTIVE: GENERAL: Not in any apparent distress. VITAL SIGNS: Temperature afebrile, heart rate 94, blood pressure 112/78. HEENT: PERRLA. Extraocular muscles intact. NECK: Supple. No carotid bruit. No thyromegaly. CHEST: Clear to auscultation. HEART: S1 and S2 regular. ABDOMEN: Soft. EXTREMITIES: Clubbing and cyanosis negative. LABORATORY DATA: Blood workup as follows; WBC 2.1, hemoglobin 9.6, hematocrit 29.5, platelet count 125. Chemistry shows sodium 137, potassium 4.2, chloride 90, carbon dioxide 29, anion gap of 15, BUN 35, creatinine is 5.4. IMPRESSION: A 62-year-old male with past medical history significant for end-stage renal disease, on dialysis secondary to multiple myeloma. Admitted with bradycardia, heart rate of 30s, atrial flutter. Now, at this point, the patient is converted to sinus. Last night, the patient had a 4-second pause. Heart rate was very fast. The patient had tachy-keya syndrome. Yesterday, the patient's heart rate was 150, atrial flutter. This is the second admission. Two years ago, the patient had same presentation with hyperkalemia, again heart rate significantly bradycardic with multiple pause, which recovers after the dialysis. The patient is on dialysis. The patient has also cardiac catheterization. Last time, admitted with [id number] myocardial infarction on 11/18/2016. Found to be distal left anterior descending occluded. Distal posterior left ventricular branch of right coronary artery occluded. The small caliber vessel is not suitable for PCI, nor for CABG. Major coronary artery is essentially normal, but distal small vessel disease. Medical treatment recommended. In view of the patient having recurrent bradycardia, tachy-keya syndrome and pause, suggest pacemaker. The patient has a Shiley on the left arm and Port-A-Cath for chemo on the right side of the chest, so the patient would get the benefit from the wireless pacemaker or from the cut-down. So we will ask Dr. Alexei Skinner, foundry superintendant, for evaluation of pacemaker. Also, it is important the patient has a history of end-stage renal disease, on dialysis, so wireless pacemaker would be favorable to prevent endocarditis in the future because of the wire. We will discuss with Dr. Skinner. Also, discuss with the patient. We will put a consult for Dr. Alexei Skinner. We will review the echo. Further recommendation after discussing with Dr. Skinner. Possible pacemaker, wireless. Timing and scheduling will depend upon Dr. Skinner. Repeat EKG. Apparently, the Telemetry shows the patient is in normal sinus. Janusz Correia MD
--- NOTE | 2018-03-10 14:11 | CP.PCM.PN ---
Subjective - Date & Time of Evaluation Date of Evaluation: 03/10/18 Time of Evaluation: 14:09 - Subjective Subjective: Nephrology Consultation Note: Assessment: stable Symptomatic Bradycardia with AV block and Hyperkalemia Acute Anxiety ESRD on hemodialysis (TTS) via AVF ( TTS ) Anemia, Hyperphosphatemia, Secondary hyperparathyroidism hx of multiple myeloma Plan: pt for HD tomorrow as ordered per TTS schedule. no acute need today. Continue with Nephrovite 1 tab/day. PRBC as needed for anemia. On CLAUDIA as Mircera as outpt q 2 weeks. Continue with phos binders home med, last phos level 4 BP control with meds as ordered. Patient not on RAAS pilar as tend to have hyperkalemia Dialysis consistent diet Further work up/management as per primary team. cardiology involved Dose meds/antibiotics (if needed) for ESRD status. Avoid fleets enema/magnesium based laxatives. Strict low K diet. resume veltassa 8.4 gram daily at d/c pt planned for PPM as per cardiology Thanks for allowing me to participate in care of your patient. Will follow patient with you. Please call if any Qs. had d/w ICU team Dr Jackson Frye Office: [phone] Chief Complaint; high potassium reason for consult; ESRD HPI: Pt is a 62 y/o M with hx of ESRD on hemodialysis (TTS) via AVF, last dialysis thursday, chronic anemia, hyperphosphatemia, secondary hyperparathyroidism, hx of multiple myeloma s/p chemo, chronic hyperkalemia now controlled on veltassa came to hospital with feeling of fatigue and restlessness , found to have bradycardia and hyperkalemia. pt reports no change in diet and claims compliance to meds. pt was admitted last in october 2016 under similar circumstances. outpt K mostly has been under good control. admitted to ICU started on dopamine and renal consult for ESRD management Denies chest pain, palpitation, shortness of breath, leg swelling. he feels very anxious and restless ROS: noted overnight events. feels much better denies CP/SOB/palpitations/dizziness. resolved anxiety. rest all other neg had chronic cough but better with claritin and pepcid. Physical Examination: General Appearance: Comfortable, in no acute respiratory distress, co-operative . better appearing Vitals reviewed and noted as below. Head; Atraumatic, normocephalic ENT: no ulcers no thrush. Tongue is midline. Oropharynx: no rash or ulcers. EYES: Pupils are equal, round and reactive to light accommodation. Eye muscles and extraocular movement intact. Sclera is anicteric. Neck; supple no lymphadenopathy, no thyromegaly or bruit Lungs: Normal respiratory rate/effort. Breath sounds bilateral equal and clear Heart: normal rate. s1s2 normal. No rub or gallop. Extremities: no edema. No varicose veins Neurological: Patient is alert, awake and oriented to person, place and time now. No focal deficit. Strength bilateral appropriate and equal Skin: Warm and dry. Normal turgor. No rash. Palpitation: Normal elasticity for age Abdomen: Abdomen is soft. Bowel sounds +. There is no abdominal tenderness, no guarding/rigidity or organomegaly Psych: normal insight and normal affect/mood MSK: no joint tenderness or swelling. Digits and nails normal, no deformity : kidney or bladder not palpable Access: AVF with thrill and bruit Labs/imaging reviewed. Past medical history, past surgical history, family history, social history, allergy reviewed and noted as below family hx: non contributory Objective - Vital Signs/Intake and Output Vital Signs (last 24 hours): Temp Pulse Resp BP Pulse Ox 98.2 F 92 H 26 H 95/56 L 100 03/10/18 12:00 03/10/18 13:00 03/10/18 13:00 03/10/18 13:00 03/10/18 10:30 Intake and Output: 03/10/18 03/10/18 06:59 18:59 Intake Total 245 Balance 245 - Medications Medications: Current Medications Aspirin (Aspirin Chewable) 81 mg PO DAILY [facility] Last Admin: 03/10/18 10:13 Dose: 81 mg Cinacalcet (Sensipar) 90 mg PO DAILY [facility] Last Admin: 03/10/18 10:13 Dose: 90 mg Famotidine (Pepcid) 20 mg PO HS [facility] Last Admin: 03/09/18 22:08 Dose: 20 mg Ferric Citrate [ Auryxia] 630 Mg ( Home Med) 630 mg PO AC [facility] Last Admin: 03/10/18 12:24 Dose: 630 mg Vitamin B Complex/Vit C/Folic Acid (Nephro-Thomas) 1 tab PO 0800 [facility] Last Admin: 03/10/18 08:08 Dose: 1 tab - Labs Labs: 03/10/18 07:45 03/10/18 07:30 PT 13.8 SECONDS (9.4-12.5) H 03/08/18 21:23 INR 1.21 03/08/18 21:23 APTT 29.1 Seconds (25.1-36.5) 03/08/18 21:23
--- NOTE | 2018-03-10 15:24 | CARD ---
APPROVED REPORT Date of service: 03/09/2018 EXAM: Two-dimensional and M-mode echocardiogram with Doppler and color Doppler. INDICATION A-FLUTTER/LVFX //MS 2D DIMENSIONS Left Atrium (2D)4.1 (1.6-4.0cm)IVSd1.2 (0.7-1.1cm) LVDd4.6 (3.9-5.9cm)PWd1.2 (0.7-1.1cm) LVDs3.8 (2.5-4.0cm)FS (%) 18.5 % LVEF (%)38.3 (>50%) M-Mode DIMENSIONS Aortic Root3.60 (2.2-3.7cm)Aortic Cusp Exc.0.90 (1.5-2.0cm) Aortic Valve AoV Peak Gbwydfdn591.0cm/sAoV VTI26.5cmAO Peak GR.12mmHg LVOT Peak Ktbagekf93.0cm/sLVOT VTI15.10cmAO Mean GR.7mmHg Mitral Valve MV E Nxxwehkr708.0cm/sMV A Gcrqrugc717.0cm/sMV [id number] E/A ratio1.2MVA (PHT)1.73cm2 TDI Lateral E' Peak V12.40cm/sMedial E' Peak V4.97cm/sE/Lateral E'17.3 E/Medial E'43.1 Pulmonary Valve PV Peak Fwbnoupd51.2cm/sPV Peak Grad.1mmHg Tricuspid Valve TR Peak Kxvbklyy724yj/sRAP QACDIWWX55grRkGS Peak Gr.39mmHg IBVO66itVw LEFT VENTRICLE The left ventricle is normal size. There is normal left ventricular wall thickness. The systolic function is moderately impaired.EF-35% ( A flutter) There is global hypokinesis of the left ventricle. A Flutter, Colud not be assessed No left ventricle thrombus noted on this study. There is no ventricular septal defect visualized. There is no left ventricular aneurysm. There is no mass noted in the left ventricle. RIGHT VENTRICLE The right ventricle is mildly to moderately dilated. There is normal right ventricular wall thickness. Systolic function is mildly to moderately reduced. ATRIA The left atrium is mildly dilated. The right atrium is mildly dilated. The interatrial septum is intact with no evidence for an atrial septal defect. AORTIC VALVE The aortic valve is calcified and displays decreased opening. There is trace aortic regurgitation. There is mild to moderate valvular aortic stenosis. There is no aortic valvular vegetation. MITRAL VALVE The mitral valve is calcified and displays decreased opening. Mitral regurgitation is moderate. There is mild to moderate mitral valve stenosis. There is no evidence of mitral valve prolapse. TRICUSPID VALVE The tricuspid valve leaflets are thickened , but open well. There is moderate to severe tricuspid regurgitation.RVSP-49 mmof Hg. There is no tricuspid valve stenosis. There is no tricuspid valve prolapse or vegetation. PULMONIC VALVE The pulmonic valve is not well visualized. There is no pulmonic valvular regurgitation. There is no pulmonic valvular stenosis. GREAT VESSELS The aortic root is normal in size. The ascending aorta is normal in size. The pulmonary artery is normal. The IVC is normal in size and collapses >50% with inspiration. PERICARDIAL EFFUSION There is no pleural effusion. There is no pericardial effusion. <Conclusion> The left ventricle is normal size. There is normal left ventricular wall thickness. The systolic function is moderately impaired.EF-35% ( A flutter) There is trace aortic regurgitation. There is mild to moderate valvular aortic stenosis. Mitral regurgitation is moderate. There is mild to moderate mitral valve stenosis. There is moderate to severe tricuspid regurgitation.RVSP-49 mmof Hg. The IVC is normal in size and collapses >50% with inspiration. There is no pericardial effusion.
--- NOTE | 2018-03-10 22:05 | CON ---
DATE: 03/10/2018 INPATIENT ELECTROPHYSIOLOGY CONSULTATION REASON FOR ELECTROPHYSIOLOGY EVALUATION: 1. Atrial tachycardia. 2. Sick sinus syndrome, sinus pause. 3. End-stage renal disease. 4. History of multiple myeloma. HISTORY OF PRESENT ILLNESS: Mr. Pipe Betancur is a 62-year-old male with past medical history significant for end-stage renal disease, on hemodialysis secondary to multiple myeloma, admitted with bradycardia and heart rate in the 30s, which appears to be in atrial tachycardia with slow ventricular response. The patient is in and out of atrial tachycardia, currently is in sinus rhythm. The patient was noted to have an episode of a 4-second pause and I was asked to see him in regards to possible chronotropic support in the form of a permanent pacemaker. The patient was seen and evaluated by Dr. Correia who requested this consultation at this time. The patient was seen and examined in the presence of his as well as his son. Of note, the patient had been admitted in 10/2016 where he presented with a [id number] myocardial infarction, subsequently underwent left heart catheterization, which did show a distal LAD occlusion, distal posterior left ventricular branch and right coronary artery occlusion. The patient was deemed not a candidate for percutaneous interventions secondary to the patient's anatomy not being amenable to intervention secondary to diminutive size. The patient at that point had been recommended to have ongoing medical therapy. The patient's hyperkalemia has been addressed. The patient is in the ICU. Potassium is elevated. PAST MEDICAL HISTORY: As mentioned previously, history of thrombocytopenia, multiple myeloma, shingles, chemotherapy, osteoarthritis, as well as other unspecified genitourinary disorder. SOCIAL HISTORY: Negative for tobacco, ETOH, or drug abuse. ALLERGIES: THE PATIENT HAS NO KNOWN DRUG ALLERGIES. CURRENT MEDICATIONS: On review of current medications, include aspirin 81 mg p.o. daily, Sensipar 90 mg p.o. daily, Pepcid 20 mg p.o. at bedtime, ferric citrate 630 mg p.o. daily, vitamin B complex/vitamin C/folic acid supplementation. Cardizem has been discontinued. Dopamine also discontinued. Pepcid discontinued. DIAGNOSTIC DATA: On review of telemetry, currently the patient appears to be in sinus rhythm at 90 beats per minute, normal P-wave morphology. The patient prior to full compensatory pause, the patient has what appears to be in atrial tachycardia, possible flutter with reinitiation of sinus rhythm, some there is a ventricular escape rhythm in between. This was documented on both lead II as well as lead . Appearance of what appears to be closed to one to one tachycardia at 130 beats per minute is also noted. On review of 12-lead EKG, the patient does have sinus rhythm with a very long first-degree AV block. This was done on 03/08 with borderline precordial R-wave progression. Nonspecific ST-T wave changes are noted. On EKG documenting atrial tachycardia, there appears to be high-level block with resultant heart rate in the 30s, P-wave size is not impressive. Tachycardia does appear to be upright in the inferior leads inverted in V1 and relatively flat in the lateral precordial leads. PHYSICAL EXAMINATION: VITAL SIGNS: As follows: Heart rate of 100 currently, appears to be in sinus rhythm/sinus tachycardia; blood pressure is 95/56; respirations of 28. GENERAL: He is a pleasant, but somewhat ill-appearing [place] man, in no acute distress, able to speak in complete sentences. HEENT: Examination of his head is normocephalic and atraumatic. There is no adelso facial asymmetry. Pupils are equally, round and reactive to light and accommodation. NECK: Supple. No jugular venous distention. No carotid bruit. CHEST: Clear to auscultation bilaterally. CARDIOVASCULAR: Regular rate and rhythm. S1 and S2. No S3 or S4. PMI does not appear to be displaced. EXTREMITIES: Without significant cyanosis, clubbing or edema. LABORATORY DATA: On review of relevant lab work, the patient has a white count of 4.3, H and H of 11.2 and 34.8, platelets of 154. BUN and creatinine is 56 and 7.2 respectively. Potassium initially have been 6.1, decreased to 4.6, decreased to 4.2 currently. ALT and AST is within normal limits. Troponin is 0.07. Albumin is 4.2. ASSESSMENT: 1. Atrial tachycardia with a cycle length of roughly 140 beats per minute, which appears to be paroxysmal. The patient at times becomes tachycardic inverted to ventricular response. Currently, the patient is not on any rate slowing agents. Atrial tachycardia may be mappable and ablatable. It is unclear secondary to his multiple medical comorbidities whether he would be a candidate for an extended ablation whether success rate would be varied. I have discussed this option with the patient and the patient's family in detail. 2. Sick sinus syndrome, history of sinus pauses following cessation of atrial tachycardia. At this point, the patient denies dizziness, lightheadedness or syncope. The patient at this point is not considering permanent pacemaker implantation/wireless implantable permanent pacemaker. I have discussed the possibilities with the patient's family. While this would be an option in this case secondary to limited access, both a dialysis fistula is in the left upper extremity. The patient has a port, which is not currently being used in the right subclavian area which would be the position of a possible permanent pacemaker. At this point, the patient seems unconvinced as far as issues associated with significant pauses and possibility of syncope and bodily harm. I did preemptively put him on the schedule for this coming Thursday on 03/15 at 9 a.m. at [facility], which would involve a transfer. Again, at this point, the patient is not considering this option. We will continue keeping him on the schedule, observing him over the weekend to see if he has any further episodes of atrial tachycardia with rapid ventricular response. 3. End-stage renal disease in this point is continuing to be managed. Electrolyte status is to be managed, it is unclear to what degree the hyperkalemia makes sinus node dysfunction. Hyperkalemia can and is clearly proarrhythmic. 4. History of multiple myeloma, which the patient according to the family is in remission. Echocardiogram which was done 03/09/2018, left ventricle appears to be of normal size, normal left ventricular thickness with moderately impaired ejection fraction of 35%. There is global hypokinesis of the left ventricle. It is unclear if there is thrombus present within the ventricle. Right atrium appears to be within normal limits. Left atrium is mildly dilated. Right atrium is mildly dilated and the atrial septum is intact without any evidence of atrial septal defect. Aortic valve appears calcified, displays decreased opening. Mitral valve is calcified, displays decreased opening. Mitral regurgitation is rated as moderate. No evidence of mitral valve prolapse is noted. There is uueo-mg-krtipdex mitral stenosis. 5. Left ventricular dysfunction. Ejection fraction appears to be 35%. Does not appear to be ischemic or hold the ischemic in etiology. May be tachycardia mediated cardiomyopathy. Again, this has been discussed with the patient and the patient's family. 6. Moderate mitral stenosis, which at this point will need to be continued. Structural heart disease issues will be addressed by Dr. Correia. PLAN: At this point, the patient will remain unscheduled for now for possible micro implant at [facility]. At this point, given LV dysfunction, we may also consider possible ablation of atrial tachycardia. Thank you for allowing me to participate in the care of your patient. Please do not hesitate to call if you have any questions in regards to his care. We will continue discussion with the patient and his family. Alexei Skinner MD
--- NOTE | 2018-03-10 22:41 | CARD ---
APPROVED REPORT Date of service: 03/10/2018 INDICATION Bradycardia/hypotension PROCEDURE The above named patient recieved 28.2 millicuries of Tc99m tagged red blood cells intravenously. After achieving equilibrium, gated imaging of 16/frame/cycle was performed utillizing Gamma camera interfaced with a digital computer and gated device. Gated imaging was then performed in the left anterior oblique, anterior, and the left lateral projections. Findings Left Ventricle: The quality of the study is suboptimal due to poor and limited positioning. The left ventricle is within normal limits in size. The right ventricle is normal in size. Wall motion study shows diffuse hypokinesis of the left ventricle. RV wall motion is normal. The right atrium is dynamic. The remainder of the study is unremarkable. Impressions Mild LV dysfunction with diffuse hypokinesis. LVEF = 43%. Normal RV wall motion.
[2018-03-11 07:27] LABS: HEMOGLOBIN 9.9 g/dL (14.0-18.0); MEAN CELL VOLUME 102.1 fl (80.0-105.0); MEAN CORPUSCULAR HGB CONC 33.3 g/dl (31.0-37.0); MEAN PLATELET VOLUME 10.6 fl (7.0-11.0); RBC 2.91 10^6/uL (3.5-6.1); RED CELL DISTRIBUTION WIDTH 15.5 % (11.5-14.5)
[2018-03-11 07:32] LABS: WHITE BLOOD COUNT 2.2 10^3/ul (4.5-11.0)
[2018-03-11 08:33] VITALS: BP 121/89; RESP 20; TEMP 97.9; O2SAT 99
[2018-03-11] MEDS: FERRIC CITRATE 630 MG PO SCH (08:57)
[2018-03-11] MEDS: Multivitamin Vitamin B Complex (Nephro-Vite) Tab PO SCH ×2 (08:57→13:04)
[2018-03-11 09:35] LABS: ALB/GLOB RATIO 1.1 (1.1-1.8); ALBUMIN 3.6 g/dL (3.0-4.8)
--- NOTE | 2018-03-11 09:43 | CP.PCM.PN ---
Subjective - Date & Time of Evaluation Date of Evaluation: 03/11/18 Time of Evaluation: 06:15 - Subjective Subjective: Awake, alert, no distress, for hemodialysis today Reason for consultation and follow up: Cardiac evaluation for symptomatic bradycardia, ESRD on hemodialysis Seen and examined by me and Dr. Correia Objective - Vital Signs/Intake and Output Vital Signs (last 24 hours): Temp Pulse Resp BP Pulse Ox 97.9 F 104 H 20 121/89 99 03/11/18 06:00 03/11/18 06:00 03/11/18 06:00 03/11/18 06:00 03/11/18 06:00 Intake and Output: 03/11/18 03/11/18 06:59 18:59 Intake Total 240 Balance 240 - Medications Medications: Current Medications Aspirin (Aspirin Chewable) 81 mg PO DAILY [facility] Last Admin: 03/10/18 10:13 Dose: 81 mg Cinacalcet (Sensipar) 90 mg PO DAILY [facility] Last Admin: 03/10/18 10:13 Dose: 90 mg Famotidine (Pepcid) 20 mg PO HS [facility] Last Admin: 03/10/18 21:47 Dose: 20 mg Ferric Citrate [ Auryxia] 630 Mg ( Home Med) 630 mg PO AC [facility] Last Admin: 03/11/18 08:57 Dose: Not Given Vitamin B Complex/Vit C/Folic Acid (Nephro-Thomas) 1 tab PO 0800 [facility] Last Admin: 03/11/18 08:57 Dose: Not Given - Labs Labs: 03/11/18 06:30 03/11/18 06:30 PT 13.8 SECONDS (9.4-12.5) H 03/08/18 21:23 INR 1.21 03/08/18 21:23 APTT 29.1 Seconds (25.1-36.5) 03/08/18 21:23 - Constitutional Appears: No Acute Distress - Eye Exam Eye Exam: Normal appearance - ENT Exam ENT Exam: Mucous Membranes Moist - Respiratory Exam Respiratory Exam: Decreased Breath Sounds, Clear to Ausculation Bilateral, NORMAL BREATHING PATTERN - Cardiovascular Exam Cardiovascular Exam: REGULAR RHYTHM, +S1, +S2 Additional comments: right chest port/accessed - GI/Abdominal Exam GI & Abdominal Exam: Soft, Normal Bowel Sounds - Exam Additional comments: ESRD on hemodialysis TTHS - Extremities Exam Extremities Exam: Normal Capillary Refill Additional comments: left arm AV shunt positive bruit/thrill - Neurological Exam Neurological Exam: Alert, Awake, Oriented x3 - Psychiatric Exam Psychiatric exam: Normal Affect - Skin Skin Exam: Dry, Warm Assessment and Plan - Assessment and Plan (Free Text) Assessment: A 62 year old male who came in to the ER due to generalized weakness. In ER, bradycardia at 30's/min. History of ESRD on hemodialysis 3x a week,multiple myeloma s/p chemotherapy, thrombocytopenia, GERD,non- obstructive coronary artery disease and shingles. Patient has right chest port and left arm AV fistula, with the anatomy, patient will benefit with wireless PPM. Telemetry shows NSR. Tachycardia-bradycardia syndrome. Dr. Jackman to evaluate patient for wireless PPM. Plan: Denies shortness of breath or chest pain Telemetry NSR now Dr. Jackman evaluated patient for wireless PPM Consultation notes and recommendation appreciated Patient undecided Blood pressure controlled Continue current treatment Continue current medications For hemodialysis today Cardiac status stable Will follow up Plan and treatment discussed with Dr. Correia
--- NOTE | 2018-03-11 14:28 | PN ---
DATE: 03/11/2018 SUBJECTIVE: Discussed with the patient in length since the patient had AV fistula on left side and Port-A-Cath on the right side, so the patient get the benefit from wireless pacemaker since the patient has tachybrady syndrome and multiple pause and largest being 4 seconds. The patient is resistant for the pacemaker and does not want at this time. I discussed with him and length of time spent, 15 minutes talking to him. The patient said that does not want pacemaker. Though, the patient has already been scheduled for Thursday for wireless pacemaker at [facility] by Dr. Alexei Skinner, so we will inform Dr. Skinner to cancel or hold the pacemaker for Thursday. Number for Dr. Skinner's office and myself was given to the patient should the patient change the mind, contact us for pacemaker. So we will hold the procedure. I explained the patient to avoid the beta pilar and also avoid skipping the dialysis because should the patient become hyperkalemic, this is the second incident that the patient became hyperkalemic and went into heart block, so probably it would be better for the patient to have a pacemaker, so should this happen again hyperkalemia, the patient should not pass out. Though the patient understood all these fine details, but still does not want the pacemaker, though understands the consequences of getting him pass out, but he said he will think and if he change his mind, he will contact us, so both numbers were given. We will also inform Dr. Garnica the above. Thank you, Dr. Garnica for providing us the opportunity in taking care of the patient, Pipe Betancur. Janusz Correia MD
[2018-03-11 15:12] VITALS: PULSE 99
--- NOTE | 2018-03-11 16:59 | CP.PCM.PN ---
Subjective - Date & Time of Evaluation Date of Evaluation: 03/11/18 Time of Evaluation: 14:00 - Subjective Subjective: Nephrology Consultation Note: Assessment: stable Symptomatic Bradycardia with AV block and Hyperkalemia Acute Anxiety ESRD on hemodialysis (TTS) via AVF ( TTS ) Anemia, Hyperphosphatemia, Secondary hyperparathyroidism hx of multiple myeloma Sys CHF LVEF 35% Plan: pt for HD todayw as ordered per TTS schedule. no acute need today. Continue with Nephrovite 1 tab/day. PRBC as needed for anemia. On CLAUDIA as Mircera as outpt q 2 weeks. Continue with phos binders home med, last phos level 4 BP control with meds as ordered. Patient not on RAAS pilar as tend to have hyperkalemia Dialysis consistent diet Further work up/management as per primary team. cardiology involved Dose meds/antibiotics (if needed) for ESRD status. Avoid fleets enema/magnesium based laxatives. Strict low K diet. resume veltassa 8.4 gram daily at d/c pt advised for PPM as per cardiology but pt refused Thanks for allowing me to participate in care of your patient. Will follow patient with you. Please call if any Qs. had d/w team Dr Jackson Frye Office: [phone] Chief Complaint; high potassium reason for consult; ESRD HPI: Pt is a 62 y/o M with hx of ESRD on hemodialysis (TTS) via AVF, last dialysis thursday, chronic anemia, hyperphosphatemia, secondary hyperparathyroidism, hx of multiple myeloma s/p chemo, chronic hyperkalemia now controlled on veltassa came to hospital with feeling of fatigue and restlessness , found to have bradycardia and hyperkalemia. pt reports no change in diet and claims compliance to meds. pt was admitted last in october 2016 under similar circumstances. outpt K mostly has been under good control. admitted to ICU started on dopamine and renal consult for ESRD management Denies chest pain, palpitation, shortness of breath, leg swelling. he feels very anxious and restless ROS: noted overnight events. feels much better denies CP/SOB/palpitations/dizziness. resolved anxiety. rest all other neg had chronic cough but better with claritin and pepcid. Physical Examination: General Appearance: Comfortable, in no acute respiratory distress, co-operative . better appearing Vitals reviewed and noted as below. Head; Atraumatic, normocephalic ENT: no ulcers no thrush. Tongue is midline. Oropharynx: no rash or ulcers. EYES: Pupils are equal, round and reactive to light accommodation. Eye muscles and extraocular movement intact. Sclera is anicteric. Neck; supple no lymphadenopathy, no thyromegaly or bruit Lungs: Normal respiratory rate/effort. Breath sounds bilateral equal and clear Heart: normal rate. s1s2 normal. No rub or gallop. Extremities: no edema. No varicose veins Neurological: Patient is alert, awake and oriented to person, place and time now. No focal deficit. Strength bilateral appropriate and equal Skin: Warm and dry. Normal turgor. No rash. Palpitation: Normal elasticity for age Abdomen: Abdomen is soft. Bowel sounds +. There is no abdominal tenderness, no guarding/rigidity or organomegaly Psych: normal insight and normal affect/mood MSK: no joint tenderness or swelling. Digits and nails normal, no deformity : kidney or bladder not palpable Access: AVF with thrill and bruit Labs/imaging reviewed. Past medical history, past surgical history, family history, social history, allergy reviewed and noted as below family hx: non contributory Objective - Vital Signs/Intake and Output Vital Signs (last 24 hours): Temp Pulse Resp BP Pulse Ox 97.9 F 99 H 20 121/89 99 03/11/18 06:00 03/11/18 14:00 03/11/18 06:00 03/11/18 06:00 03/11/18 06:00 Intake and Output: 03/11/18 03/11/18 06:59 18:59 Intake Total 240 Balance 240 - Labs Labs: 03/11/18 06:30 03/11/18 06:30 PT 13.8 SECONDS (9.4-12.5) H 03/08/18 21:23 INR 1.21 03/08/18 21:23 APTT 29.1 Seconds (25.1-36.5) 03/08/18 21:23
== END 2018-03-11 16:24 | disposition home or self-care (01) | DRG 308 ==
LOC: ED 21:18 → ERH 23:07 → ICU 03-09 01:05 → 2RNO 03-10 23:38
PROVIDERS: ADMIT Internal Medicine; ATTEND Internal Medicine
PROC: 5A1D70Z Performance of Urinary Filtration, Intermittent, Less than 6 Hours Per Day (ICD-10-PCS; principal; 2018-03-09)
PROC: 5A1D70Z Performance of Urinary Filtration, Intermittent, Less than 6 Hours Per Day (ICD-10-PCS; 2018-03-11)
DX: I49.5 Sick sinus syndrome (principal); N18.6 End stage renal disease; N25.81 Secondary hyperparathyroidism of renal origin; C90.01 Multiple myeloma in remission; I48.92 Unspecified atrial flutter; I47.1 Supraventricular tachycardia; I47.2 Ventricular tachycardia; R42 Dizziness and giddiness; D69.6 Thrombocytopenia, unspecified; M81.0 Age-related osteoporosis without current pathological fracture; I95.9 Hypotension, unspecified; E87.5 Hyperkalemia; Z99.2 Dependence on renal dialysis; Z92.21 Personal history of antineoplastic chemotherapy; F41.9 Anxiety disorder, unspecified; D64.9 Anemia, unspecified; I25.10 Atherosclerotic heart disease of native coronary artery without angina pectoris; I73.9 Peripheral vascular disease, unspecified; I25.82 Chronic total occlusion of coronary artery; I44.0 Atrioventricular block, first degree; B02.9 Zoster without complications; D72.819 Decreased white blood cell count, unspecified; E83.39 Other disorders of phosphorus metabolism; I05.0 Rheumatic mitral stenosis; I25.2 Old myocardial infarction; I44.30 Unspecified atrioventricular block; I50.9 Heart failure, unspecified; K21.9 Gastro-esophageal reflux disease without esophagitis; Z79.02 Long term (current) use of antithrombotics/antiplatelets; Z79.82 Long term (current) use of aspirin; Z90.49 Acquired absence of other specified parts of digestive tract; M19.90 Unspecified osteoarthritis, unspecified site